=== PATIENT | female | born 1985 | race Two or more races ===

== ENCOUNTER 2020-03-12 15:41 | Outpatient (REF) | payer OTHER, SELFPAY ==
--- NOTE | 2020-03-12 16:05 | XR_ITS ---
EXAMINATION: BILATERAL HAND X-RAY CLINICAL INFORMATION: Pain COMPARISON: Previous left hand and wrist x-ray January 2019 and right finger x-ray June 2015 TECHNIQUE: 3 views of each hand FINDINGS: Bone alignment is normal. No fracture or dislocation is seen. The joint spaces are normal. Soft tissues are normal. XR/XR hand LT min 3V IMPRESSION: Unremarkable exam.
--- NOTE | 2020-03-12 16:05 | XR_ITS ---
EXAMINATION: BILATERAL HAND X-RAY CLINICAL INFORMATION: Pain COMPARISON: Previous left hand and wrist x-ray January 2019 and right finger x-ray June 2015 TECHNIQUE: 3 views of each hand FINDINGS: Bone alignment is normal. No fracture or dislocation is seen. The joint spaces are normal. Soft tissues are normal. XR/XR hand RT min 3V IMPRESSION: Unremarkable exam.
[2020-03-12 16:17] LABS: MANUAL DIFF FLAG NO
[2020-03-12 16:18] LABS: Basophils Percent Auto 0.3 % (0-2); Eosinophils Absolute Auto 0.1 X10*3/uL (0.0-0.4); Eosinophils Percent Auto 0.7 % (0-4); Hematocrit 36.1 % (37-47); Hemoglobin 12.2 g/dl (12.0-16.0); Imm Gran Abs Auto 0.02 X10*3/uL (0.00-0.03); Imm Gran Pct Auto 0.3 % (0.0-0.4); Lymphocytes Absolute Auto 1.9 X10*3/uL (1.2-4.9); Lymphocytes Percent Auto 25.5 % (20-40); Mean Corpuscular HGB Conc 33.8 g/dl (31.0-35.0); Mean Corpuscular Hemoglobin 31.1 pg (27.0-33.0); Mean Corpuscular Volume 92.1 fL (80-98); Mean Platelet Volume 11.4 fL (9.4-12.3); Monocytes Absolute Auto 0.5 X10*3/uL (0.1-1.2); Monocytes Percent Auto 5.9 % (2-11); Neutrophils Absolute Auto 5.1 X10*3/uL (2.0-8.3); Neutrophils Percent Auto 67.3 % (45-73); Platelet Count 233 X10*3/uL (160-400); Red Blood Count 3.92 X10*6/uL (4.20-5.50); Red Cell Distribution Width 12.7 % (11.0-16.0); White Blood Count 7.6 X10*3/uL (4.8-10.8)
[2020-03-12 16:45] LABS: C Reactive Protein 0.16 mg/dL (< or = 0.50); Rheumatoid Factor < 15.0 IU/mL (<15.0)
[2020-03-12 17:03] LABS: Erythrocyte Sedimentation Rate 9 MM/HR (0-20)
[2020-03-14 14:02] LABS: Anti Nuclear Antibody Screen NEGATIVE (NEGATIVE)
[2020-03-14 14:21] LABS: Cyclic Citrullinated Peptide <16 UNITS
== END 2020-03-12 15:42 | disposition home or self-care (01) ==
LOC: HO.LAB 15:41
PROVIDERS: PCP Internal Medicine; Visit Provider Internal Medicine
DX: M79.642 Pain in left hand (principal); M79.641 Pain in right hand
CPT/HCPCS: 36415; 73130; 85025; 85652; 86038; 86039; 86140; 86200; 86431

== ENCOUNTER 2020-05-07 09:06 | Outpatient (REF) | payer OTHER, SELFPAY | END 2020-05-07 09:07 | disposition home or self-care (01) | LOC: HO.HMGCLDS 09:06 | PROVIDERS: PCP Internal Medicine; Visit Provider Internal Medicine | DX: Z20.828 Contact with and (suspected) exposure to other viral communicable diseases (principal) | CPT/HCPCS: C9803; U0003 ==

== ENCOUNTER 2020-05-21 12:50 | Outpatient (REF) | payer OTHER, SELFPAY | END 2020-05-21 12:51 | disposition home or self-care (01) | LOC: HO.HMGCLDS 12:50 | PROVIDERS: Visit Provider Internal Medicine | DX: Z20.822 Contact with and (suspected) exposure to COVID-19 (principal) | CPT/HCPCS: 36415; C9803; U0003 ==

== ENCOUNTER 2020-06-18 15:17 | Outpatient (REF) | payer OTHER, SELFPAY ==
[2020-06-19 18:57] LABS: C. trachomatis RNA TMA NOT DETECTED (NOT DETECTED); N. gonorrhoeae RNA TMA NOT DETECTED (NOT DETECTED)
[2020-06-21 16:02] LABS: HPV mRNA E6/E7 rflx Not Detected (Not Detected)
== END 2020-06-18 15:18 | disposition home or self-care (01) ==
LOC: HO.LAB 15:17
PROVIDERS: PCP Hospitalist; Visit Provider Advanced Practice Midwife
DX: Z01.411 Encounter for gynecological examination (general) (routine) with abnormal findings (principal); Z11.51 Encounter for screening for human papillomavirus (HPV); N39.41 Urge incontinence; R30.0 Dysuria; Z20.2 Contact with and (suspected) exposure to infections with a predominantly sexual mode of transmission; Z97.5 Presence of (intrauterine) contraceptive device
CPT/HCPCS: 36415; 81003; 87086; 87088; 87186; 87491; 87591; 87624; 88142

== ENCOUNTER 2020-06-20 13:34 | Outpatient (REF) | payer OTHER, SELFPAY ==
[2020-06-21 04:11] LABS: HIV AB/AG Nonreactive (Nonreactive); HIV Num 1 0.14 S/CO (0.00-0.99); ~HepC Num1 0.18 S/CO (0.00-0.79); ~Hepatitis C Antibody Nonreactive (Nonreactive)
[2020-06-21 04:12] LABS: HBsAGNum1 0.22 S/CO (0.00-0.99); Hepatitis B Surface Antigen Negative (Negative)
[2020-06-22 03:38] LABS: Syphilis Screen Nonreactive (Nonreactive)
== END 2020-06-20 13:35 | disposition home or self-care (01) ==
LOC: HO.LAB 13:34
PROVIDERS: PCP Hospitalist; Visit Provider Advanced Practice Midwife
DX: Z11.3 Encounter for screening for infections with a predominantly sexual mode of transmission (principal); Z11.8 Encounter for screening for other infectious and parasitic diseases; Z11.4 Encounter for screening for human immunodeficiency virus [HIV]; Z11.59 Encounter for screening for other viral diseases
CPT/HCPCS: 36415; 86780; 86803; 87340; 87389

== ENCOUNTER 2020-07-18 12:46 | Outpatient (REF) | payer OTHER, SELFPAY ==
[2020-07-22 12:07] LABS: HPV mRNA E6/E7 rflx Not Detected (Not Detected)
== END 2020-07-18 12:47 | disposition home or self-care (01) ==
LOC: HO.LAB 12:46
PROVIDERS: Visit Provider Advanced Practice Midwife
DX: Z30.433 Encounter for removal and reinsertion of intrauterine contraceptive device (principal); Z11.51 Encounter for screening for human papillomavirus (HPV); R87.615 Unsatisfactory cytologic smear of cervix
CPT/HCPCS: 36415; 58300; 58301; 81025; 87624; 88142

== ENCOUNTER 2020-07-27 18:24 | Outpatient (REF) | payer OTHER, SELFPAY | END 2020-07-27 18:25 | disposition home or self-care (01) | LOC: HO.LNP 18:24 | PROVIDERS: Visit Provider Family Medicine | DX: N39.0 Urinary tract infection, site not specified (principal); R30.0 Dysuria | CPT/HCPCS: 87086; 87088; 87186 ==

== ENCOUNTER → 2020-09-04 15:09 | Outpatient (BNVA) | payer OTHER, SELFPAY | PROVIDERS: PCP Internal Medicine; Visit Provider Advanced Practice Midwife | DX: Z30.431 Encounter for routine checking of intrauterine contraceptive device (principal) | CPT/HCPCS: 99212 ==

== ENCOUNTER 2020-12-05 14:40 | Outpatient (REF) | payer OTHER, SELFPAY ==
[2020-12-05 14:54] LABS: MANUAL DIFF FLAG NO
[2020-12-05 14:58] LABS: Basophils Percent Auto 0.2 % (0-2); Eosinophils Percent Auto 0.3 % (0-4); Hematocrit 40.3 % (37-47); Hemoglobin 13.6 g/dl (12.0-16.0); Imm Gran Abs Auto 0.03 X10*3/uL (0.00-0.03); Imm Gran Pct Auto 0.3 % (0.0-0.4); Lymphocytes Absolute Auto 1.8 X10*3/uL (1.2-4.9); Lymphocytes Percent Auto 20.2 % (20-40); Mean Corpuscular HGB Conc 33.7 g/dl (31.0-35.0); Mean Corpuscular Hemoglobin 30.6 pg (27.0-33.0); Mean Corpuscular Volume 90.6 fL (80-98); Mean Platelet Volume 10.8 fL (9.4-12.3); Monocytes Absolute Auto 0.4 X10*3/uL (0.1-1.2); Monocytes Percent Auto 4.5 % (2-11); Neutrophils Absolute Auto 6.7 X10*3/uL (2.0-8.3); Neutrophils Percent Auto 74.5 % (45-73); Platelet Count 235 X10*3/uL (160-400); Red Blood Count 4.45 X10*6/uL (4.20-5.50); Red Cell Distribution Width 13.1 % (11.0-16.0); White Blood Count 9.1 X10*3/uL (4.8-10.8)
[2020-12-05 15:25] LABS: Anion Gap 11 (12-20); Blood Urea Nitrogen 13 mg/dL (9-16); Calcium 9.7 mg/dL (8.4-10.2); Carbon Dioxide 27 mmol/L (22-29); Chloride 106 mmol/L (96-108); Estimated Glomerular Filt Rate > 60; Glucose Random 99 mg/dL (60-115); Potassium 4.7 mmol/L (3.3-5.1); Sodium 139 mmol/L (135-145)
[2020-12-05 15:47] LABS: Thyroid Stimulating Hormone 0.81 uIU/mL (0.32-4.0)
== END 2020-12-05 14:41 | disposition home or self-care (01) ==
LOC: HO.LAB 14:40
PROVIDERS: PCP Internal Medicine; Visit Provider Psychiatry & Neurology Neurology
DX: G43.709 Chronic migraine without aura, not intractable, without status migrainosus (principal)
CPT/HCPCS: 36415; 80048; 84443; 85025

== ENCOUNTER → 2021-04-12 14:24 | Outpatient (BNVA) | payer OTHER, SELFPAY | PROVIDERS: PCP Internal Medicine; Visit Provider Physician Assistant | DX: S80.11XA Contusion of right lower leg, initial encounter (principal); Y04.2XXA Assault by strike against or bumped into by another person, initial encounter; M79.7 Fibromyalgia | CPT/HCPCS: 99203 ==

== ENCOUNTER 2021-11-22 16:38 | Outpatient (REF) | payer OTHER, SELFPAY ==
--- NOTE | ~2021-11-22 | XR_ITS ---
EXAMINATION: XR ELBOW, LEFT CLINICAL INFORMATION: Pain COMPARISON: None TECHNIQUE: AP, lateral, and oblique views of the left elbow. FINDINGS: The bones and soft tissues are normal. No fracture or joint effusion. Alignment is anatomic. Joint spaces are maintained. XR/XR elbow LT min 3V IMPRESSION: Normal left elbow radiographs.
== END 2021-11-22 16:39 | disposition home or self-care (01) ==
LOC: HO.XRAY 16:38
PROVIDERS: PCP Internal Medicine; Visit Provider Internal Medicine
DX: M25.522 Pain in left elbow (principal)
CPT/HCPCS: 73080

== ENCOUNTER → 2022-01-16 14:59 | Outpatient (BNVA) | payer OTHER, SELFPAY | PROVIDERS: PCP Internal Medicine; Visit Provider Physician Assistant | DX: M77.12 Lateral epicondylitis, left elbow (principal) | CPT/HCPCS: 20551; 99202; J1100 ==

== ENCOUNTER 2022-02-08 10:14 | Outpatient (REF) | payer OTHER, SELFPAY ==
[2022-02-08 11:51] LABS: MANUAL DIFF FLAG NO
[2022-02-08 11:54] LABS: Basophils Percent Auto 0.4 % (0-2); Eosinophils Absolute Auto 0.1 X10*3/uL (0.0-0.4); Eosinophils Percent Auto 1.2 % (0-4); Hematocrit 36.8 % (37.0-47.0); Hemoglobin 12.4 g/dl (12.0-16.0); Imm Gran Abs Auto 0.01 X10*3/uL (0.00-0.03); Imm Gran Pct Auto 0.2 % (0.0-0.4); Lymphocytes Absolute Auto 1.4 X10*3/uL (1.2-4.9); Lymphocytes Percent Auto 29.3 % (20-40); Mean Corpuscular HGB Conc 33.7 g/dl (31.0-35.0); Mean Corpuscular Hemoglobin 30.7 pg (27.0-33.0); Mean Corpuscular Volume 91.1 fL (80.0-98.0); Mean Platelet Volume 11.9 fL (9.4-12.3); Monocytes Absolute Auto 0.3 X10*3/uL (0.1-1.2); Monocytes Percent Auto 6.6 % (2-11); Neutrophils Percent Auto 62.3 % (45-73); Platelet Count 243 X10*3/uL (160-400); Red Blood Count 4.04 X10*6/uL (4.20-5.50); Red Cell Distribution Width 12.5 % (11.0-16.0); White Blood Count 4.8 X10*3/uL (4.8-10.8)
[2022-02-08 11:55] LABS: Appearance Urine Cloudy; Color Urine Yellow; Glucose Urine UA Negative (Negative); Leukocyte Esterase Urine Large (3+) (Negative); Nitrite Urine Negative (Negative); PH 6.5 (5.0-9.0); UMIC TRIGGER UACC YES; Urine Blood Negative (Negative); Urine Ketones Negative (Negative); Urine Protein Negative (Neg-Trace)
[2022-02-08 12:06] LABS: Alanine Aminotransferase 22 U/L (0-31); Anion Gap 15 (12-20); Aspartate Amino Transferase 17 U/L (5-31); Bacteria Urine 2+ (None Seen); Bilirubin Total 0.6 mg/dL (0.0-1.0); Blood Urea Nitrogen 10 mg/dL (9-16); Calcium 9.1 mg/dL (8.4-10.2); Carbon Dioxide 27 mmol/L (22-29); Chloride 106 mmol/L (96-108); Cholesterol 165 mg/dL; Estimated Glomerular Filt Rate > 60; Glucose Fasting 90 mg/dL (60-99); HDL Cholesterol 47 mg/dL; Hyaline Casts Urine 0-2 /LPF (0-2); Potassium 4.7 mmol/L (3.3-5.1); Sodium 143 mmol/L (135-145); Triglycerides 64 mg/dL; UACC Culture Trigger YES
[2022-02-08 12:07] LABS: Alkaline Phosphatase 68 U/L (39-117); LDL Cholesterol Calculated 106 mg/dl
[2022-02-08 12:26] LABS: TSH reflex Free T4 0.69 uIU/mL (0.32-4.0); Vitamin D 25-OH Total 15.8 ng/mL (>30)
== END 2022-02-08 10:15 | disposition home or self-care (01) ==
LOC: HO.HMGCLDS 10:14
PROVIDERS: PCP Internal Medicine; Visit Provider Internal Medicine
DX: Z00.00 Encounter for general adult medical examination without abnormal findings (principal); K29.70 Gastritis, unspecified, without bleeding; E55.9 Vitamin D deficiency, unspecified; E78.00 Pure hypercholesterolemia, unspecified
CPT/HCPCS: 36415; 80053; 80061; 81001; 82306; 84443; 85025; 87086

== ENCOUNTER 2022-02-18 08:35 | Outpatient (REF) | payer OTHER, SELFPAY ==
--- NOTE | ~2022-02-18 | FL_ITS ---
EXAMINATION: XR FLUOROSCOPY UPPER GI WITH AIR CLINICAL INFORMATION: Epigastric pain. COMPARISON: None TECHNIQUE: Routine upper GI air-contrast study was performed. FINDINGS: Following oral administration of thick barium and effervescent granules there is normal propagation of bolus from the oral cavity through the pharynx, esophagus into stomach without any obstruction or narrowing. On placing patient supine and prone lying the course, caliber and peristalsis of stomach and the duodenal bulb is normal. There is mild gastroesophageal reflux without hiatal hernia. The mucosal pattern of the stomach and the duodenum is normal. FLUOROSCOPY TIME: 1.4 minutes DOSE AREA PRODUCT: 25.786 uGy-m2 (microgray-meter squared) FL/FL upper GI w air IMPRESSION: Mild gastroesophageal reflux without hiatal hernia.
== END 2022-02-18 08:36 | disposition home or self-care (01) ==
LOC: HO.XRAY 08:35
PROVIDERS: PCP Internal Medicine; Visit Provider Internal Medicine
DX: R10.13 Epigastric pain (principal)
CPT/HCPCS: 74246

== ENCOUNTER → 2022-06-25 15:09 | Outpatient (BNVA) | payer OTHER, SELFPAY | PROVIDERS: PCP Internal Medicine; Visit Provider Physician Assistant | DX: S53.402A Unspecified sprain of left elbow, initial encounter (principal); S83.92XA Sprain of unspecified site of left knee, initial encounter; W18.30XA Fall on same level, unspecified, initial encounter | CPT/HCPCS: 73080; 73564; 99204 ==

== ENCOUNTER → 2022-07-03 11:48 | Outpatient (BNVA) | payer OTHER, SELFPAY | PROVIDERS: PCP Internal Medicine; Visit Provider Physician Assistant | DX: S53.402A Unspecified sprain of left elbow, initial encounter (principal); S83.92XA Sprain of unspecified site of left knee, initial encounter; W18.30XA Fall on same level, unspecified, initial encounter | CPT/HCPCS: 99213 ==

== ENCOUNTER 2022-07-15 08:31 | Outpatient (REF) | payer OTHER, SELFPAY ==
[2022-07-15 16:32] LABS: Urine Cytology See Pathology rpt
== END 2022-07-15 08:32 | disposition home or self-care (01) ==
LOC: HO.LAB 08:31
PROVIDERS: PCP Internal Medicine; Visit Provider Nurse Practitioner Family
DX: N39.0 Urinary tract infection, site not specified (principal); N32.81 Overactive bladder; Z79.899 Other long term (current) drug therapy
CPT/HCPCS: 51798; 87086; 99202

== ENCOUNTER → 2022-07-16 15:33 | Outpatient (BNVA) | payer OTHER, SELFPAY | PROVIDERS: PCP Internal Medicine; Visit Provider Physician Assistant | DX: M25.522 Pain in left elbow (principal); M25.562 Pain in left knee | CPT/HCPCS: 99214 ==

== ENCOUNTER → 2022-07-28 15:16 | Outpatient (BNVA) | payer OTHER, SELFPAY | PROVIDERS: PCP Internal Medicine; Visit Provider Physician Assistant Medical | DX: M25.522 Pain in left elbow (principal); M25.562 Pain in left knee | CPT/HCPCS: 99213 ==

== ENCOUNTER → 2022-08-11 14:30 | Outpatient (BNVA) | payer OTHER, SELFPAY | PROVIDERS: PCP Internal Medicine; Visit Provider Physician Assistant Medical | DX: M25.522 Pain in left elbow (principal); M25.562 Pain in left knee | CPT/HCPCS: 99213 ==

== ENCOUNTER 2022-08-22 15:00 | Outpatient (RCR) | payer OTHER, SELFPAY ==
--- NOTE | 2022-07-30 16:00 | MHC.OT.EP ---
[address] [phone] Occupational Therapy Plan of Care Patient Name: Arminda Adams Date of Evaluation: 07/30/22 Diagnosis: Left elbow /forearm pain Pain Location: Left elbow constant. 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 Pt stopped doing nails about one year ago with little improvement. Pt now presents with complaint of high elbow pain with light use of arm. 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 Thank you once again for your referral.
--- NOTE | 2022-07-30 16:01 | MHC.OT.EP ---
[address] [phone] Occupational Therapy Plan of Care Patient Name: Arminda Adams Date of Evaluation: 07/30/22 Diagnosis: Left elbow /forearm pain Pain Location: Left elbow constant. 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 Pt stopped doing nails about one year ago with little improvement. Pt now presents with complaint of high elbow pain with light use of arm. 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 Thank you once again for your referral.
--- NOTE | 2022-08-22 16:21 | MHC.OT.OP ---
[address] [phone] F: [phone] Occupational Therapy Progress Note Patient Name: Arminda Adams Diagnosis: Left elbow /forearm pain Date of Surgery: Date of Evaluation: 07/30/22 Treatments to Date: 5 Cancellations to Date: No Shows to Date: Subjective: Pt reports doing her HEP stretching today at work Pt reports pain with elbow ROM and with light palpation at medial and lateral elbows Pain Score: 6 Pain Location: Left lateral elbow 6/10, Right lateral elbow 10/10 Objective Measures: AROM WNL Handcrew Foreman R 20 lb L 60 lb from 50 lb on evaluation Status: Not Progressing Assessment: 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 Pt was seen in OT and reports she stopped doing nails about one year ago with little improvement. Pt now presents with complaint of high left elbow pain and severe right elbow pain not reported at evaluation. Pain on both elbows with AROM and light use of arm. ROM is WNL, synchro assembler strength is improved by 10 lb on the left. Left elbow pain improved from a 9/10 to a 6/10 Short Term Goals: Demo compliance with elbow protection techniques Demo painfree AROM Tolerate isometric UE ther ex Skilled Nursing Goals: Indep with HEP Indep with activity modification for elbow protection Left synchro assembler to > 65 lb Mild difficulty with daily activities with modifications as needed Frequency and Duration: The patient will be seen 2x wk x 4 wks Treatment Plan: Therapeutic Exercise Therapeutic Activity Home Exercise Program Patient Education ADL Training Ultrasound Iontophoresis Con't per recommendations Electronically Signed By: Luann Drake OT CHT CLT Reviewed/agree with student documentation: N/A Therapist:
--- NOTE | 2022-08-28 10:48 | MHC.OT.DC ---
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 Pt was seen in OT and reports she stopped doing nails about one year ago with little improvement. Pt now presents with complaint of high left elbow pain and severe right elbow pain not reported at evaluation. Pain on both elbows with AROM and light use of arm. ROM is WNL, boat camp operator strength is improved by 10 lb on the left. Left elbow pain improved from a 9/10 to a 6/10 Recalcitrant case, D/c'd OT and referred to Orthopedic surgeon. Electronically Signed By: Luann Drake OT CHT CLT Reviewed/agree with student documentation: N/A Therapist: Please Sign and return to therapist, thank you for your referral.
== END 2022-08-28 10:48 | disposition home or self-care (01) ==
LOC: HO.OT 15:00
PROVIDERS: PCP Internal Medicine; Visit Provider Physician Assistant
DX: M25.522 Pain in left elbow (principal); M79.632 Pain in left forearm
CPT/HCPCS: 97035; 97110; 97140; 97166

== ENCOUNTER → 2022-08-26 11:05 | Outpatient (BNVA) | payer OTHER, SELFPAY | PROVIDERS: PCP Internal Medicine; Visit Provider Physician Assistant Medical | DX: S53.402D Unspecified sprain of left elbow, subsequent encounter (principal); S83.92XD Sprain of unspecified site of left knee, subsequent encounter; W18.30XD Fall on same level, unspecified, subsequent encounter | CPT/HCPCS: 99213 ==

== ENCOUNTER 2022-09-03 07:34 | Outpatient (REF) | payer OTHER, SELFPAY ==
[2022-09-03 10:32] LABS: MANUAL DIFF FLAG NO
[2022-09-03 10:39] LABS: Basophils Percent Auto 0.5 % (0-2); Eosinophils Absolute Auto 0.1 X10*3/uL (0.0-0.4); Eosinophils Percent Auto 1.2 % (0-4); Hematocrit 37.1 % (37.0-47.0); Hemoglobin 12.4 g/dl (12.0-16.0); Imm Gran Abs Auto 0.02 X10*3/uL (0.00-0.03); Imm Gran Pct Auto 0.4 % (0.0-0.4); Lymphocytes Absolute Auto 1.6 X10*3/uL (1.2-4.9); Lymphocytes Percent Auto 28.7 % (20-40); Mean Corpuscular HGB Conc 33.4 g/dl (31.0-35.0); Mean Corpuscular Hemoglobin 30.2 pg (27.0-33.0); Mean Corpuscular Volume 90.5 fL (80.0-98.0); Mean Platelet Volume 11.8 fL (9.4-12.3); Monocytes Absolute Auto 0.4 X10*3/uL (0.1-1.2); Monocytes Percent Auto 6.3 % (2-11); Neutrophils Absolute Auto 3.6 x10*3/uL (2.0-8.3); Neutrophils Percent Auto 62.9 % (45-73); Platelet Count 227 X10*3/uL (160-400); Red Cell Distribution Width 12.7 % (11.0-16.0); White Blood Count 5.7 X10*3/uL (4.8-10.8)
[2022-09-03 11:18] LABS: Alanine Aminotransferase 22 U/L (0-31); Albumin Level 3.9 g/dL (3.5-5.0); Alkaline Phosphatase 68 U/L (39-117); Anion Gap 12 (12-20); Aspartate Amino Transferase 16 U/L (5-31); Bilirubin Total 0.6 mg/dL (0.0-1.0); Blood Urea Nitrogen 10 mg/dL (9-16); C Reactive Protein 0.14 mg/dL (< or = 0.50); Calcium 8.7 mg/dL (8.4-10.2); Carbon Dioxide 26 mmol/L (22-29); Chloride 107 mmol/L (96-108); Estimated Glomerular Filt Rate > 60; Glucose Random 94 mg/dL (60-115); Rheumatoid Factor < 13.0 IU/mL (<15.0); Sodium 141 mmol/L (135-145); Total Protein 6.5 g/dL (6.5-8.0)
[2022-09-03 11:33] LABS: TSH reflex Free T4 1.11 uIU/mL (0.32-4.0)
[2022-09-03 11:44] LABS: Erythrocyte Sedimentation Rate 11 MM/HR (0-20)
[2022-09-05 22:09] LABS: Lyme Abs Screen <0.90 index
[2022-09-08 10:28] LABS: Anti Nuclear Antibody Screen NEGATIVE (NEGATIVE)
[2022-09-08 19:58] LABS: CK-BB None Detected (None Detected); CK-MB 0 % (<5); CK-MM 100 % (95-100); Creatine Kinase,Total,Serum 70 U/L (29-143)
== END 2022-09-03 07:35 | disposition home or self-care (01) ==
LOC: HO.10HDL 07:34
PROVIDERS: Visit Provider Internal Medicine
DX: M25.50 Pain in unspecified joint (principal); E78.00 Pure hypercholesterolemia, unspecified; T14.8XXA Other injury of unspecified body region, initial encounter; W57.XXXA Bitten or stung by nonvenomous insect and other nonvenomous arthropods, initial encounter
CPT/HCPCS: 36415; 80053; 82552; 84443; 85025; 85652; 86038; 86039; 86140; 86431; 86617; 86618

== ENCOUNTER → 2022-09-11 15:54 | Outpatient (BNVA) | payer OTHER, SELFPAY | PROVIDERS: PCP Internal Medicine; Visit Provider Internal Medicine | DX: S53.402D Unspecified sprain of left elbow, subsequent encounter (principal); S83.92XD Sprain of unspecified site of left knee, subsequent encounter; W18.30XD Fall on same level, unspecified, subsequent encounter | CPT/HCPCS: 99213 ==

== ENCOUNTER → 2022-09-15 15:14 | Outpatient (BNVA) | payer OTHER, SELFPAY | PROVIDERS: PCP Internal Medicine; Visit Provider Physician Assistant | DX: M77.12 Lateral epicondylitis, left elbow (principal) | CPT/HCPCS: 99212 ==

== ENCOUNTER 2022-09-17 16:00 | Outpatient (REF) | payer OTHER, SELFPAY ==
--- NOTE | ~2022-09-17 | US_ITS ---
EXAMINATION: US RETROPERITONEAL COMPLETE (RENAL) CLINICAL INFORMATION: Unspecified urinary incontinence. COMPARISON: None available. TECHNIQUE: Real-time imaging of the kidneys and bladder. FINDINGS: RIGHT KIDNEY: 10.3 x 5.6 x 5.4 cm (SAG x AP x TRV). The kidney is normal in size, contour, and echogenicity. Renal cortical thickness is normal. No calculi or focal parenchymal lesions. No hydronephrosis. LEFT KIDNEY: 11.3 x 6.1 x 5.5 cm (SAG x AP x TRV). The kidney is normal in size, contour, and echogenicity. There may be cortical thinning or scarring in the upper pole. No calculi or focal parenchymal lesions. No hydronephrosis. BLADDER: Well distended and normal. Bilateral ureteral jets are demonstrated. Prevoid bladder volume is 297.1 mL. Postvoid bladder volume is 33.9 mL. US/US retroperitoneal comp IMPRESSION: Question cortical thinning or scarring in the upper pole of the left kidney. Otherwise normal renal ultrasound. Small 34 mL post void bladder residual..
== END 2022-09-17 16:01 | disposition home or self-care (01) ==
LOC: HO.US 16:00
PROVIDERS: PCP Internal Medicine; Visit Provider Nurse Practitioner Family
DX: N32.81 Overactive bladder (principal); R32 Unspecified urinary incontinence
CPT/HCPCS: 76770

== ENCOUNTER 2022-09-26 10:34 | Outpatient (REF) | payer OTHER, SELFPAY ==
--- NOTE | ~2022-09-26 | MR_ITS ---
EXAMINATION: MR KNEE WITHOUT CONTRAST, LEFT CLINICAL INFORMATION: Left knee pain and swelling. Injury in June 2022. Persistent pain and limited range of motion. COMPARISON: Left knee radiographs dated 06/25/2022. Report from a left knee MRI dated 01/02/2006. TECHNIQUE: MRI of the knee without contrast was performed using routine sequences on a high-field scanner. FINDINGS: MENISCI: Medial Meniscus: Intact. Lateral Meniscus: Intact. LIGAMENTS: Cruciate: Intact. Collateral: Intact. EXTENSOR MECHANISM: Intact quadriceps and patellar tendons. Normal patellofemoral alignment. Subcutaneous edema ventral to the distal patella and tibial tuberosity which could represent a soft tissue contusion versus early prepatellar bursitis. No organized fluid collection/hematoma formation. ARTICULAR CARTILAGE/BONE: Patellofemoral Compartment: Mild patellar median ridge articular cartilage signal heterogeneity. Medial Compartment: Intact articular cartilage. Lateral Compartment: Intact articular cartilage. JOINT FLUID AND BURSAE: Trace joint effusion and trace Smith's cyst. MR/MR knee LT wo con IMPRESSION: 1. No acute meniscal or ligamentous injury. 2. Subcutaneous edema ventral to the distal patella and tibial tuberosity which could represent a soft tissue contusion versus early prepatellar bursitis. No organized fluid collection/hematoma formation. 3. Minimal patellofemoral arthrosis. Trace joint effusion and trace Smith's cyst.
== END 2022-09-26 10:35 | disposition home or self-care (01) ==
LOC: HO.MRI 10:34
PROVIDERS: PCP Internal Medicine; Visit Provider Internal Medicine
DX: M25.562 Pain in left knee (principal)
CPT/HCPCS: 73721

== ENCOUNTER → 2022-10-01 15:47 | Outpatient (BNVA) | payer OTHER, SELFPAY | PROVIDERS: PCP Internal Medicine; Visit Provider Nurse Practitioner Family | DX: R31.29 Other microscopic hematuria (principal); N32.81 Overactive bladder; R30.0 Dysuria | CPT/HCPCS: 51798; 99212 ==

== ENCOUNTER → 2022-10-08 15:20 | Outpatient (BNVA) | payer OTHER, SELFPAY | PROVIDERS: PCP Internal Medicine; Visit Provider Physician Assistant | DX: S53.402D Unspecified sprain of left elbow, subsequent encounter (principal); S83.92XD Sprain of unspecified site of left knee, subsequent encounter; W18.30XD Fall on same level, unspecified, subsequent encounter | CPT/HCPCS: 99214 ==

== ENCOUNTER 2022-10-16 16:00 | Outpatient (RCR) | payer OTHER, SELFPAY ==
--- NOTE | 2022-07-25 15:46 | MHC.PT.EP ---
[facility] [place] Office [place] Office [place] Office [address] Keenan Briceno [address] [phone] F: [phone] F: [phone] F: [phone] F: [phone] Physical Therapy Plan of Care Date of Evaluation: Date of Surgery: Diagnosis: LEFT knee pain (MD Dx) LEFT knee pain/strain, ?patellar bursitis (PT Dx) Assessment: Patient is a 37 y.o. female who is referred to PT by Pam Toro with Dx of LEFT knee pain after worker's compensation injury. PT diagnosis is left knee pain, strain, possible patellar bursitis. Patient impairments include swelling, pain, limited ROM, weakness. Patient current functional limitations are walking, stair use, bend/squat, prolonged positions (sitting or standing). Patient will benefit from skilled PT to address aforementioned impairments and functional limitations to meet established goals. Frequency and Duration: The patient will be seen 2x/week for 4 weeks Short Term Goals: 2 weeks Patient demonstrates consistency and independence with HEP to self manage symptoms. Patient presents without swelling in L mid patella, measuring 43.5cm. 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 Patient presents with increased L knee extension 5/5 to be able to perform reciprocal stairs. Treatment Plan: Modalities to reduce pain, spasms and effusion. Manual therapy to restore motion and function. Therapeutic exercise to improve strength and flexibility. Neuromuscular re-education for posture and balance. Therapeutic activities to return to functional activities of daily living. Electronically signed by: Ambrose Hinton, PT, DPT Please sign and return to therapist. Thank you for your referral.
--- NOTE | 2022-10-22 17:18 | MHC.PT.DC ---
[facility] [place] Office [place] Office [place] Office [address] Keenan Briceno [address] [facility] [phone] F: [phone] F: [phone] F: [phone] F: [phone] Physical Therapy Discharge Report Diagnosis: LEFT knee pain (MD Dx) LEFT knee pain/strain, ?patellar bursitis (PT Dx) Date of Surgery: Date of Evaluation: 07/25/22 Date of Discharge: 10/16/22 Treatments to Date: 16 Cancellations to Date: No Shows to Date: Discharge Status: Achieved Goals Improved Function Independent with HEP Discharge Summary: Pt independent w/HEP All Goals met Discharged from PT at this time. Electronically signed by: Ambrose Hinton, PT, DPT Please sign and return to therapist. Thank you for your referral.
== END 2022-10-22 17:18 | disposition home or self-care (01) ==
LOC: HO.PT 16:00
PROVIDERS: PCP Internal Medicine; Visit Provider Physician Assistant
DX: M25.562 Pain in left knee (principal)
CPT/HCPCS: 97035; 97110; 97140; 97161; 97530

== ENCOUNTER 2022-10-27 13:30 | Outpatient (REF) | payer OTHER, SELFPAY ==
--- NOTE | ~2022-10-27 | XR_ITS ---
EXAMINATION: XR KNEE, LEFT CLINICAL INFORMATION: Left knee contusion COMPARISON: X-ray 06/25/2022 TECHNIQUE: Four views of the left knee. FINDINGS: Bones and soft tissues are normal. No fracture or joint effusion. Alignment is anatomic. Joint spaces are well maintained. No abnormal soft tissue calcification. XR/XR knee LT 4V IMPRESSION: No acute osseous findings seen.
== END 2022-10-27 13:31 | disposition home or self-care (01) ==
LOC: HO.HMGCX 13:30
PROVIDERS: PCP Internal Medicine; Visit Provider Internal Medicine
DX: S80.02XD Contusion of left knee, subsequent encounter (principal)
CPT/HCPCS: 73564

== ENCOUNTER 2022-11-19 14:09 | Outpatient (AMB) | payer OTHER, SELFPAY ==
[2022-11-19 14:12] VITALS: BMI 40.8
--- NOTE | 2022-11-19 14:12 | A.OFFVIS_ITS ---
Intake Vital Signs 11/19/22 14:12 Height 5 ft 6 in Weight 253 lb BMI 40.8 Intake Visit Reasons: Newprob-LT knee pain-DOI 06/25/22 Intake Note: Arminda is a 37 year old female who presets today for a evaluation for her left knee pain, DOI 06/25/22. Patient reports she re injured her on 10/25/22 due to jumping over a guardrail. She states that there is a lump behind her left thigh that causes her pain when walking for a long time and squatting. Pain is on top of the knee cap per patient. ? Allergies cashew nut Allergy (Severe, Verified 11/19/22 14:18) ANAPHYLAXIS cat dander Allergy (Severe, Verified 11/19/22 14:18) ITCHY SWELLING pregabalin [From Lyrica] Allergy (Severe, Verified 11/19/22 14:18) headaches,lower facial/chin swelling gabapentin Allergy (Intermediate, Verified 11/19/22 14:18) confusion, nausea house dust Allergy (Intermediate, Verified 11/19/22 14:18) Unknown HPI Newprob-LT knee pain-DOI 06/25/22 HPI Details 37-year-old female who presents to the office today for evaluation of left knee pain, 06/25/22. She reports she reinjured her left knee on 10/25/22 s/p jumping over a guardrail. She states she has pain in the anterior aspect of her patella and a lump present behind her left thigh which causes her pain with prolonged walking and squatting. She is completed with her physical therapy sessions. [facility] Medical History Anxiety Bilateral hand pain Constipation Depression Fibromyalgia GERD without esophagitis Insomnia IUD (intrauterine device) in place Migraine Morbid obesity with BMI of 45.0-49.9, adult Obesity, Class III, BMI 40-49.9 (morbid obesity) Peripheral neuropathy Urge incontinence Vitamin D deficiency Surgical History H/O bilateral breast reduction surgery (~06/2012) History of section History of tubal ligation Family History Father No problems noted. Mother No problems noted. 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 Diffuse retropatellar tenderness present. Palpable cord like area along the hamstring with tenderness. Full ROM with crepitus. Negative Grazyna?s. No ligamentous laxity. NVI. Assessment & Plan Assessment & Plan (1) Patellofemoral arthritis of left knee: Code(s): M17.12 - Unilateral primary osteoarthritis, left knee (2) Left hamstring muscle strain: Code(s): S76.312A - Strain of muscle, fascia and tendon of the posterior muscle group at thigh level, left thigh, initial encounter Plan We discussed options which include PT, NSAIDs and injections. The patient will defer on the injection today and proceed with PT and NSAIDs. She was also given an off the shelf reaction knee brace in the office today. If symptoms persist, the patient will contact me for an injection, otherwise, PRN. Orders: Orders PT Evaluation and Treatment Today M17.12 - Unilateral primary osteoarthritis, left knee, S76.312A - Strain of muscle, fascia and tendon of the posterior muscle group at thigh level, left thigh, initial encounter Patient Instructions: Scribed for Savita Roman PA-C, by Tyler Norton medical assistant cardiology, on 11/19/2022 at 2:00 PM Savita RYAN PA-C, have personally reviewed and agree with the information entered by the scribe. Coding Level of Care Code Est Pt Level 3 (35954) Diagnoses Patellofemoral arthritis of left knee M17.12 Left hamstring muscle strain S76.312A
== END 2022-11-19 15:05 | disposition home or self-care (01) ==
PROVIDERS: PCP Internal Medicine; Visit Provider Physician Assistant
DX: M17.12 Unilateral primary osteoarthritis, left knee (principal); S76.312A Strain of muscle, fascia and tendon of the posterior muscle group at thigh level, left thigh, initial encounter
CPT/HCPCS: 99213

== ENCOUNTER → 2022-11-19 14:09 | Outpatient (BNVA) | payer OTHER, SELFPAY | PROVIDERS: PCP Internal Medicine; Visit Provider Physician Assistant | DX: M17.12 Unilateral primary osteoarthritis, left knee (principal); S76.312A Strain of muscle, fascia and tendon of the posterior muscle group at thigh level, left thigh, initial encounter; X58.XXXA Exposure to other specified factors, initial encounter; Y93.9 Activity, unspecified; Y92.9 Unspecified place or not applicable; Y99.0 Civilian activity done for income or pay | CPT/HCPCS: 99212 ==

== ENCOUNTER 2022-11-20 08:07 | Outpatient (REF) | payer OTHER, SELFPAY ==
--- NOTE | 2022-11-20 08:09 | EMG_ITS ---
Left median and ulnar motor and sensory studies were performed. Left radial and sensory study was performed and paraspinal muscles were tested with a needle. IMPRESSION: 1. [id number] left median neuropathy across carpal tunnel. 2. Mild left ulnar neuropathy across cubital tunnel. MD ÁNGEL Cotto/SAIMAL / [id number]
== END 2022-11-20 08:08 | disposition home or self-care (01) ==
LOC: HO.NEURO 08:07
PROVIDERS: PCP Internal Medicine; Visit Provider Physician Assistant
DX: R20.0 Anesthesia of skin (principal); R20.2 Paresthesia of skin
CPT/HCPCS: 95886; 95909

== ENCOUNTER 2022-11-20 14:26 | Outpatient (REF) | payer OTHER, SELFPAY ==
--- NOTE | ~2022-11-20 | US_ITS ---
EXAMINATION: US SOFT TISSUE LEFT THIGH CLINICAL INFORMATION: Left thigh contusion sequelae. COMPARISON: None TECHNIQUE: Linear transducer grayscale and color Doppler examination with attention to the region of the soft tissues of the left thigh. FINDINGS: In the region of concern is mild heterogeneous echogenic and hypoechoic subcutaneous components with horizontal orientation. Color Doppler showed minimal associated vascular flow. The surrounding soft tissues are unremarkable. US/US extremity nonvascular IMPRESSION: 1. Mild heterogeneous echogenic and hypoechoic subcutaneous components in the region of concern is nonspecific. This could represent a resolving hematoma. No surrounding abnormality is seen. If these findings persist or enlarge, short-term repeat targeted soft tissue ultrasound can be performed as clinically indicated to assess for change.
== END 2022-11-20 14:27 | disposition home or self-care (01) ==
LOC: HO.US 14:26
PROVIDERS: PCP Nurse Practitioner Family; Visit Provider Nurse Practitioner Family
DX: S70.12XS Contusion of left thigh, sequela (principal)
CPT/HCPCS: 76882

== ENCOUNTER 2022-12-17 13:44 | Outpatient (AMB) | payer OTHER, SELFPAY ==
[2022-12-17 13:59] VITALS: BMI 40.8
--- NOTE | 2022-12-17 13:59 | MHC.OFFVIS ---
Intake Vital Signs 12/17/22 13:59 Height 5 ft 6 in Weight 253 lb BMI 40.8 Intake Visit Reasons: OV- EMG Review left elbow Intake Note: Arminda 37 yr old female presents today for her EMG review. States she is ready to discuss surgery. Consent signed and reviewed. Allergies cashew nut Allergy (Severe, Verified 12/17/22 14:01) ANAPHYLAXIS cat dander Allergy (Severe, Verified 12/17/22 14:01) ITCHY SWELLING pregabalin [From Lyrica] Allergy (Severe, Verified 12/17/22 14:01) headaches,lower facial/chin swelling gabapentin Allergy (Intermediate, Verified 12/17/22 14:01) confusion, nausea house dust Allergy (Intermediate, Verified 12/17/22 14:01) Unknown HPI OV- EMG Review left elbow HPI Details Arminda is a 37 year old right hand dominant woman who presents for a NCS review of her left hand numbness. She complains of numbness in all digits of her left hand. Symptoms intermittent, but daily, worse at night. She mainly has numbness in the median nerve distribution but will sometimes have numbness in her ring and small fingers She says she was initially diagnosed with bilateral carpal tunnel syndrome in ~2012. She reports having peripheral neuropathy, with worse numbness in her BLE. 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 [facility] Medical History Anxiety Bilateral hand pain Constipation Depression Fibromyalgia GERD without esophagitis Insomnia IUD (intrauterine device) in place Migraine Morbid obesity with BMI of 45.0-49.9, adult Obesity, Class III, BMI 40-49.9 (morbid obesity) Peripheral neuropathy Urge incontinence Vitamin D deficiency Surgical History H/O bilateral breast reduction surgery (~06/2012) History of section History of tubal ligation Family History Father No problems noted. Mother No problems noted. 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 Cognitive needs: No Hearing needs: No Vision needs: Yes Female Reproductive History Menstrual Age of Menarche: 13 Review of Systems Const All systems reviewed & are unremarkable except as noted in HPI and below Physical Exam Vital Signs: BMI result Body Mass Index 40.8 Const General: cooperative, healthy appearing and no acute distress Orientation/consciousness: patient oriented x3 HEENT Head: Yes normocephalic and Yes atraumatic Eyes EOM: EOMs intact bilaterally Resp Effort & Inspection: normal respiratory effort and able to speak in complete sentences Cardio Jugular venous distension: no JVD Skin General skin exam: turgor normal Rashes: no rashes Neuro General: patient oriented x3 Extrem Other: Evaluation of Left Upper Extremity: The patient is alert, oriented, and in no acute distress Neuro: Normal sensation in the median nerve distribution today. Numbness in the small finger today in clinic No thenar or intrinsic wasting Good APB muscle belly firing and good finger cross Vascular: Cap refill brisk ROM: She can make a fist and extend all her digits Skin: No lacerations or abrasions. General: No Ecchymosis. No Erythema or evidence of infection. Nerve Conduction study: IMPRESSION: 1. [id number] left median neuropathy across carpal tunnel. 2. Mild left ulnar neuropathy across cubital tunnel. Airam Dickey MD 11/20/2022 Psych Appearance: grossly normal Affect: normal affect Attitude: cooperative Assessment & Plan Assessment & Plan (1) Carpal tunnel syndrome of left wrist: Code(s): G56.02 - Carpal tunnel syndrome, left upper limb (2) Cubital tunnel syndrome on left: Code(s): G56.22 - Lesion of ulnar nerve, left upper limb Plan Assessment & Plan: 1. Left Carpal tunnel syndrome, mild-moderate Symptoms intermittent, but daily, worse at night 2. Left Cubital tunnel syndrome, mild Symptoms intermittent, but daily, worse at night I educated her about these conditions I discussed operative and non-operative treatment options The patient would like to proceed with surgery The risks and benefits of operative treatment were discussed with the patient and the patient wishes to proceed with surgery. These risks include, but are not limited to risk of damage to blood vessels, nerves, tendons, infection, recurrence, incomplete relief of preoperative symptoms, persistent pain, possible need for further surgery and the risks associated with regional blocks and anesthesia. The plan is to take the patient to the operating room sometime in the next few weeks for the following procedures: 1. Left Cubital tunnel release vs transposition, under general 2. Left Carpal tunnel release, under general All of the preoperative paperwork including the consent was filled out today. All the patient's questions were answered. The patient understands that they will be contacted by our staff development coordinator rn soon to schedule this procedure She denies Diabetes, blood thinners, asthma, heart, lung, kidney issues She has a hx of Peripheral neuropathy and Fibromyalgia Scribed for Yolanda Jackman MD by Prince Broussard, medical technical writer, on 12/17/22 at 2:15 PM, EST. Coding Level of Care Code Est Pt Level 4 (00834) Diagnoses Carpal tunnel syndrome of left wrist G56.02 Cubital tunnel syndrome on left G56.22
== END 2022-12-17 14:39 | disposition home or self-care (01) ==
PROVIDERS: PCP Internal Medicine; Visit Provider Orthopaedic Surgery
DX: G56.02 Carpal tunnel syndrome, left upper limb (principal); G56.22 Lesion of ulnar nerve, left upper limb
CPT/HCPCS: 99214

== ENCOUNTER → 2022-12-17 13:44 | Outpatient (BNVA) | payer OTHER, SELFPAY | PROVIDERS: PCP Internal Medicine; Visit Provider Orthopaedic Surgery | DX: G56.02 Carpal tunnel syndrome, left upper limb (principal); G56.22 Lesion of ulnar nerve, left upper limb; R20.0 Anesthesia of skin; R20.2 Paresthesia of skin; M79.7 Fibromyalgia | CPT/HCPCS: 99212 ==

== ENCOUNTER 2023-01-01 15:47 | Outpatient (REF) | payer OTHER, SELFPAY | END 2023-01-01 15:48 | disposition home or self-care (01) | LOC: HO.LNP 15:47 | PROVIDERS: Visit Provider Nurse Practitioner Family | DX: N32.81 Overactive bladder (principal); N39.0 Urinary tract infection, site not specified; R30.0 Dysuria | CPT/HCPCS: 51798; 81003; 87086; 99212 ==

== ENCOUNTER 2023-01-01 15:47 | Outpatient (AMB) | payer OTHER, SELFPAY ==
--- NOTE | 2023-01-01 15:50 | MHC.OFFVIS ---
Intake Intake Visit Reasons: 3 months Intake Note: Patient is present for follow up OAB/Micro Hematuria/Dysuria Urology Medications: Oxybutynin, Vesicare, Bactrim (not currently taking) Blood Thinner: none PVR: 109ml's Director Of Agriculture Required: No Accompanied by: Self / Same As Patient Allergies cashew nut Allergy (Severe, Verified 01/01/23 19:06) ANAPHYLAXIS cat dander Allergy (Severe, Verified 01/01/23 19:06) ITCHY SWELLING pregabalin [From Lyrica] Allergy (Severe, Verified 01/01/23 19:06) headaches,lower facial/chin swelling gabapentin Allergy (Intermediate, Verified 01/01/23 19:06) confusion, nausea house dust Allergy (Intermediate, Verified 01/01/23 19:06) Unknown Medication List - Last Reconciled 01/01/23 by CHARLIE Flores epinephrine IM DIRECTED ergocalciferol (vitamin D2) 1,250 mcg PO QWEEK 90 days ibuprofen 600 mg PO Q6H PRN levonorgestrel vaginal meloxicam 15 mg PO DAILY quetiapine 25 mg PO BID PRN terazosin 1 mg PO BEDTIME 30 days HPI HPI Comments History of Present Illness Details Arminda is a pleasant 37-year-old female patient of Dr. Vargas. She has a past medical history of migraines, anxiety, depression, peripheral neuropathy, GERD, insomnia, fibromyalgia, constipation, and carpal tunnel syndrome. She presents to the office today for follow-up. Of note, patient was seen approximately 3 months ago at which time she was started on vesicare for reports of urinary frequency with episodes of incontinence. Since her last visit here she discusses not to have started Vesicare. She also reports to have not taken antibiotics that were prescribed s/p microgen that was resulted. She discusses she has not been able to take care of her own health as she has been taking care of her son who recently attempted to commit suicide with overdosing on Benadryl. She discuss spending her whole summer getting her son through all these behavior health centers like [facility] and [facility]. She does continue to report lower urinary tract symptoms of urinary frequency and urinary urgency with episodes of incontinence at times. Discussed at length importance of taking meds as prescribed and importance of taking care of herself to be able to take care of her children. In office urinalysis results reviewed with the patient today. PVR 109ml's. Discussed at length incomplete bladder emptying as well as effects of incomplete bladder emptying. Workup has included retroperitoneal ultrasound noting bilateral kidneys with no calculi, lesions, or hydronephrosis noted. The bladder is well distended and normal. Bilateral ureteral jets are demonstrated. Prevoid bladder volume is approximately 300 mL. Postvoid bladder volume is approximately 30 mL. She has previously trialed oxybutynin with good effect initially however noting decrease in efficacy thus plan was to trial Vesicare. However, again patient did not end up trialing this. She otherwise denies changes to urinary stream, hematuria, flank pain, fever, and or chills. Discussed pelvic floor therapy however patient states she will not be able to attend at this time. Discussed near future in office cystoscopy if symptoms persist and or worsen. She otherwise offers no issues or concerns at this time. She discusses having to put her bachelor's degree at [employer] for early Education on hold at this time given her current circumstances . [facility] Medical History Anxiety Bilateral hand pain Constipation Depression Fibromyalgia GERD without esophagitis Insomnia IUD (intrauterine device) in place Migraine Morbid obesity with BMI of 45.0-49.9, adult Obesity, Class III, BMI 40-49.9 (morbid obesity) Peripheral neuropathy Urge incontinence Vitamin D deficiency Surgical History H/O bilateral breast reduction surgery (~06/2012) History of section History of tubal ligation Family History Father No problems noted. Mother No problems noted. 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 Cognitive needs: No Hearing needs: No Vision needs: Yes Female Reproductive History Menstrual Age of Menarche: 13 Review of Systems Const Reports as per HPI Eyes Reports no additional complaints ENT Reports no additional complaints Card Reports no additional complaints Resp Reports no additional complaints GI Reports as per HPI Reports as per HPI Musc Reports as per HPI Neuro Reports as per HPI Psych Reports as per HPI Endo Reports no additional complaints Jesus/Lymph Reports no additional complaints Aller/Immun Reports no additional complaints Physical Exam Const General: cooperative, healthy appearing, comfortable, no acute distress, well developed, alert and awake Nutritional Appearance: overweight Orientation/consciousness: patient oriented x3 Limitations: no limitations HEENT Head: Yes normal to inspection, Yes normocephalic and Yes atraumatic Ears: hearing grossly normal bilaterally Eyes General: appearance normal, both eyes and all related structures Neck Neck: Yes normal visual inspection and Yes trachea midline Chest Chest palpation & inspection: normal inspection of the chest Resp Effort & Inspection: normal respiratory effort and able to speak in complete sentences Cardio Rate: regular rate GI Inspection: Yes normal to inspection General: Yes no CVA tenderness Back/Spine/Pelvis Back: no CVA tenderness Skin General skin exam: no rashes or lesions noted Neuro General: patient oriented x3 Extrem General: Yes normal to inspection Psych Appearance: grossly normal and well kempt Mental Status: mental status grossly normal Speech and movement: Normal speech and movement present and Clear speech present Affect: normal affect Attitude: cooperative Thought process: Normal thought process present Thought content: Normal thought content present Insight: Fair insight present (Psych) Judgement: Fair judgement present (Psych) Office Procedures Post Void Residual Post Residual Void Post Void Residual (PVR): 109 50461-Hior Void Residual by ultrasound Results AMB Urinalysis, Automated UA Leukoctes 500 Katlin/uL Last Edit by Dg Cruz on 01/01/23 16:11 UA Nitrite Negative Last Edit by Tiltapdriss Cruz on 01/01/23 16:11 UA Urobilinogen 0.2 mg/dL Last Edit by Arthena Nancy on 01/01/23 16:11 UA Protein 15 mg/dL Last Edit by Dg Cruz on 01/01/23 16:11 UA pH 6.0 Last Edit by Dg Cruz on 01/01/23 16:11 UA Blood 10 Davidson/uL Last Edit by Dg Cruz on 01/01/23 16:11 UA Specific Dexter 1.030 Last Edit by Dg Cruz on 01/01/23 16:11 UA Ketone Negative Last Edit by gD Cruz on 01/01/23 16:11 UA Bilirubin 0 mg/dL Last Edit by Dg Cruz on 01/01/23 16:11 UA Glucose 0 mg/dL Last Edit by Dg Cruz on 01/01/23 16:11 Results Reviewed Results Reviewed: Laboratory Last Values Urine pH (Auto) 6.0 01/01/23 16:10 Specific Dexter (Auto) 1.030 01/01/23 16:10 Urine Protein (Auto) 15 mg/dL 01/01/23 16:10 Glucose (UA)(Auto) 0 mg/dL 01/01/23 16:10 Urine Ketones (Auto) Negative 01/01/23 16:10 Urine Blood (Auto) 10 Davidson/uL 01/01/23 16:10 Urine Nitrite (Auto) Negative 01/01/23 16:10 Urine Bilirubin (Auto) 0 mg/dL 01/01/23 16:10 Urine Urobilinogen (Auto) 0.2 mg/dL 01/01/23 16:10 Leukocyte Esterase (Auto) 500 Katlin/uL 01/01/23 16:10 Assessment & Plan Assessment & Plan (1) Overactive bladder: Code(s): N32.81 - Overactive bladder (2) UTI (urinary tract infection): Code(s): N39.0 - Urinary tract infection, site not specified (3) Dysuria: Code(s): R30.0 - Dysuria Plan In office urinalysis results reviewed with the patient today; as noted above; will send for urine culture. PVR 109 mL Discussed at length potential causes as well as affects of incomplete bladder emptying Discussed trialing 1 mg of terazosin at bedtime to assist with incomplete bladder emptying Discussed attempting to double void Discussed bladder triggers/irritants. Discussed at length importance of taking care of herself to be able to take care of her children. Discussed near future in office cystoscopy if symptoms persist and/or worsen. Follow-up in 6 weeks with PVR; or sooner with any issues, concerns, and or questions. Orders: Orders Urine Culture Today N39.0 - Urinary tract infection, site not specified AMB Urinalysis Automated Today Z13.9 - Encounter for screening, unspecified AMB Post Void Residual by ultrasound Today N39.0 - Urinary tract infection, site not specified Medications: New terazosin 1 mg PO BEDTIME 30 days 30 caps 1RF R39.12 - Poor urinary stream Discontinued solifenacin (Vesicare) Discontinued Reason: Doctor's Order 5 mg PO DAILY 90 days 90 tabs 0RF Patient Instructions: The patient had an opportunity to ask questions regarding the treatment plan. All questions were answered. Physical exam, labs, and imaging were discussed and reviewed in detail. As well as risks, benefits, and discussion of treatment choices. No major barriers to understanding were identified. The patient expressed understanding and agreement with the above treatment plan. The patient was made aware they should contact our office by phone for worsening of their current condition, the appearance of new symptoms, or with any questions or concerns. Compliance is encouraged with any medications and follow up testing that is ordered. It is a privilege to be allowed the opportunity to participate in? your urological care.? Again, if you have any questions or concerns If you have any questions or concerns please do not hesitate to contact me. The office is [phone]. This note is constructed using voice recognition software. While every effort has been made to ensure accuracy direct support professional errors may have been included. Yours sincerely, CICI Flores-PAZ Coding Level of Care Code Est Pt Level 4 (29635) Diagnoses Overactive bladder N32.81 UTI (urinary tract infection) N39.0 Dysuria R30.0 CPT Codes Post Residual Void - PVR CPT Code: 62682-Nqpn Void Residual by ultrasound ([id number])
== END 2023-01-01 15:52 ==
PROVIDERS: PCP Internal Medicine; Visit Provider Nurse Practitioner Family
DX: N32.81 Overactive bladder (principal); N39.0 Urinary tract infection, site not specified; R30.0 Dysuria; Z13.9 Encounter for screening, unspecified
CPT/HCPCS: 99214

== ENCOUNTER 2023-03-03 15:51 | Outpatient (AMB) | payer OTHER, SELFPAY ==
[2023-03-03 15:55] VITALS: BP 118/72; PULSE 87; O2SAT 94; BMI 39.6
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
== END 2023-03-03 17:00 | disposition home or self-care (01) ==
PROVIDERS: PCP Internal Medicine; Visit Provider Internal Medicine
DX: M79.7 Fibromyalgia (principal); G43.009 Migraine without aura, not intractable, without status migrainosus; G56.02 Carpal tunnel syndrome, left upper limb; M25.50 Pain in unspecified joint; S70.12XS Contusion of left thigh, sequela; S50.02XS Contusion of left elbow, sequela; S80.02XS Contusion of left knee, sequela; K29.70 Gastritis, unspecified, without bleeding; E55.9 Vitamin D deficiency, unspecified; K59.00 Constipation, unspecified; G47.00 Insomnia, unspecified; F41.9 Anxiety disorder, unspecified
CPT/HCPCS: 99214

== ENCOUNTER 2023-04-01 14:49 | Outpatient (REF) | payer OTHER, SELFPAY | END 2023-04-01 14:50 | disposition home or self-care (01) | LOC: HO.LNP 14:49 | PROVIDERS: PCP Internal Medicine; Visit Provider Nurse Practitioner Family | DX: N39.0 Urinary tract infection, site not specified (principal); N32.81 Overactive bladder; R33.9 Retention of urine, unspecified | CPT/HCPCS: 51798; 81003; 87086; 87088; 99212 ==

== ENCOUNTER 2023-04-01 14:49 | Outpatient (AMB) | payer OTHER, SELFPAY ==
--- NOTE | 2023-04-01 15:05 | MHC.OFFVIS ---
Intake Intake Visit Reasons: follow up/pvr Intake Note: Patient is present for follow up OAB/Micro Hematuria/Dysuria Urology Medications: d/c vesicare, terazosin Blood Thinner: none PVR: 108ml's Cushion Sewer Required: No Accompanied by: Self / Same As Patient Allergies cashew nut Allergy (Severe, Verified 04/05/23 17:33) ANAPHYLAXIS cat dander Allergy (Severe, Verified 04/05/23 17:33) ITCHY SWELLING pregabalin [From Lyrica] Allergy (Severe, Verified 04/05/23 17:33) headaches,lower facial/chin swelling gabapentin Allergy (Intermediate, Verified 04/05/23 17:33) confusion, nausea house dust Allergy (Intermediate, Verified 04/05/23 17:33) Unknown Medication List - Last Reconciled 04/05/23 by CICI Flores-PAZ epinephrine IM DIRECTED ergocalciferol (vitamin D2) 1,250 mcg PO QWEEK 90 days ibuprofen 600 mg PO Q6H PRN levonorgestrel vaginal meloxicam 15 mg PO DAILY metronidazole 500 mg PO BID 7 days omeprazole 20 mg PO DAILY 30 days polyethylene glycol 3350 17 grams PO DAILY 30 days quetiapine 25 mg PO BID PRN terazosin 1 mg PO BEDTIME 30 days HPI HPI Comments History of Present Illness Details Arminda is a pleasant 37-year-old female patient of Dr. Vargas. She has a past medical history of migraines, anxiety, depression, peripheral neuropathy, GERD, insomnia, fibromyalgia, constipation, and carpal tunnel syndrome. She presents to the office today for follow-up. Of note, patient was seen approximately 3 months ago at which time she was started on low dose terazosin for incomplete bladder emptying. In discussion with the patient today she reports to be doing and feeling well. She discusses not noting a difference in her lower urinary tract symptoms however has been taking terazosin 1 mg at bedtime as prescribed. She reports she continues with intermittent episodes of urinary frequency and urgency. However she also discusses being busy at work and will go in entire work day without urinating. In office urinalysis results reviewed with the patient today. Discussed further assessment with microgen and or urine culture. Previous workup has included a retroperitoneal ultrasound noting bilateral kidneys with no calculi, lesions, or hydronephrosis noted. The bladder is well distended and normal. Bilateral ureteral jets are demonstrated. Prevoid bladder volume is approximately 300 mL. Postvoid bladder volume is approximately 30 mL. She has previously trialed oxybutynin and VESIcare for overactive bladder symptoms however did not find this helpful. When asked she denies changes to urinary stream, hematuria, flank pain, fever, and or chills. She discusses at length taking care of her son who has been dealing with mental health issues. PVR 109ml's. Discussed pelvic floor therapy however patient states she will not be able to attend at this time. Discussed near future in office cystoscopy if symptoms persist and or worsen. She otherwise offers no issues or concerns at this time. [facility] Medical History Obesity, Class III, BMI 40-49.9 (morbid obesity) IUD (intrauterine device) in place Morbid obesity with BMI of 45.0-49.9, adult Urge incontinence Insomnia GERD without esophagitis Peripheral neuropathy Depression Anxiety Migraine Fibromyalgia Vitamin D deficiency Constipation Bilateral hand pain Surgical History H/O bilateral breast reduction surgery (~06/2012) History of section History of tubal ligation Family History Father No problems noted. Mother No problems noted. 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 Cognitive needs: No Hearing needs: No Vision needs: Yes Female Reproductive History Menstrual Age of Menarche: 13 Review of Systems Const Reports as per HPI Eyes Reports no additional complaints ENT Reports no additional complaints Card Reports no additional complaints Resp Reports no additional complaints GI Reports as per HPI Reports as per HPI Musc Reports as per HPI Neuro Reports as per HPI Psych Reports as per HPI Endo Reports no additional complaints Jesus/Lymph Reports no additional complaints Aller/Immun Reports no additional complaints Physical Exam Const General: cooperative, healthy appearing, comfortable, no acute distress, well developed, alert and awake Nutritional Appearance: overweight Orientation/consciousness: patient oriented x3 Limitations: no limitations HEENT Head: Yes normal to inspection, Yes normocephalic and Yes atraumatic Ears: hearing grossly normal bilaterally Eyes General: appearance normal, both eyes and all related structures Neck Neck: Yes normal visual inspection and Yes trachea midline Chest Chest palpation & inspection: normal inspection of the chest Resp Effort & Inspection: normal respiratory effort and able to speak in complete sentences Cardio Rate: regular rate GI Inspection: Yes normal to inspection General: Yes no CVA tenderness Back/Spine/Pelvis Back: no CVA tenderness Skin General skin exam: no rashes or lesions noted Neuro General: patient oriented x3 Extrem General: Yes normal to inspection Psych Appearance: grossly normal and well kempt Mental Status: mental status grossly normal Speech and movement: Normal speech and movement present and Clear speech present Affect: normal affect Attitude: cooperative Thought process: Normal thought process present Thought content: Normal thought content present Insight: Fair insight present (Psych) Judgement: Fair judgement present (Psych) Office Procedures Post Void Residual Post Residual Void Post Void Residual (PVR): 108 [id number] Void Residual by ultrasound Results AMB Urinalysis, Automated UA Leukoctes 500 [place]/uL Last Edit by [employer] on 04/01/23 15:36 UA Nitrite Negative Last Edit by [employer] on 04/01/23 15:36 UA Urobilinogen 0.2 mg/dL Last Edit by [employer] on 04/01/23 15:36 UA Protein 0 mg/dL Last Edit by [employer] on 04/01/23 15:36 UA pH 8.0 Last Edit by [employer] on 04/01/23 15:36 UA Blood 0 [place]/uL Last Edit by [employer] on 04/01/23 15:36 UA Specific [place] 1.010 Last Edit by [employer] on 04/01/23 15:36 UA Ketone Negative Last Edit by [employer] on 04/01/23 15:36 UA Bilirubin 0 mg/dL Last Edit by [employer] on 04/01/23 15:36 UA Glucose 0 mg/dL Last Edit by [employer] on 04/01/23 15:36 Results Reviewed Results Reviewed: Laboratory Last Values Urine pH (Auto) 8.0 04/01/23 15:11 Specific [place] (Auto) 1.010 04/01/23 15:11 Urine Protein (Auto) 0 mg/dL 04/01/23 15:11 Glucose (UA)(Auto) 0 mg/dL 04/01/23 15:11 Urine Ketones (Auto) Negative 04/01/23 15:11 Urine Blood (Auto) 0 [place]/uL 04/01/23 15:11 Urine Nitrite (Auto) Negative 04/01/23 15:11 Urine Bilirubin (Auto) 0 mg/dL 04/01/23 15:11 Urine Urobilinogen (Auto) 0.2 mg/dL 04/01/23 15:11 Leukocyte Esterase (Auto) 500 [place]/uL 04/01/23 15:11 Assessment & Plan Assessment & Plan (1) UTI (urinary tract infection): Code(s): N39.0 - Urinary tract infection, site not specified (2) Overactive bladder: Code(s): N32.81 - Overactive bladder (3) Incomplete bladder emptying: Code(s): R33.9 - Retention of urine, unspecified Plan In office urinalysis results reviewed with the patient today; as noted above; will send for urine culture and microgen testing Start Flagyl Continue terazosin 1 mg at bedtime. Discussed and stressed the importance of attempting to double void to assist with incomplete bladder emptying. Discussed and stressed the importance of drinking plenty of fluid as well as attempting to empty bladder at least every 3 hours. Discussed at length potential causes as well as affects of incomplete bladder emptying Discussed bladder triggers/irritants. . Discussed near future in office cystoscopy if symptoms persist and/or worsen. Follow-up in 1 month with PVR; or sooner with any issues, concerns, and or questions Orders: Orders AMB Urinalysis Automated 04/01/23 Z13.9 - Encounter for screening, unspecified AMB Post Void Residual by ultrasound 04/01/23 N32.81 - Overactive bladder Urine Culture 04/01/23 N39.0 - Urinary tract infection, site not specified Patient Instructions: The patient had an opportunity to ask questions regarding the treatment plan. All questions were answered. Physical exam, labs, and imaging were discussed and reviewed in detail. As well as risks, benefits, and discussion of treatment choices. No major barriers to understanding were identified. The patient expressed understanding and agreement with the above treatment plan. The patient was made aware they should contact our office by phone for worsening of their current condition, the appearance of new symptoms, or with any questions or concerns. Compliance is encouraged with any medications and follow up testing that is ordered. It is a privilege to be allowed the opportunity to participate in? your urological care.? Again, if you have any questions or concerns If you have any questions or concerns please do not hesitate to contact me. The office is [phone]. This note is constructed using voice recognition software. While every effort has been made to ensure accuracy [employer] professor errors may have been included. Yours sincerely, CHARLIE Flores Coding Level of Care Code Est Pt Level 4 (34986) Diagnoses UTI (urinary tract infection) N39.0 Overactive bladder N32.81 Incomplete bladder emptying R33.9 CPT Codes Post Residual Void - PVR CPT Code: 65829-Atiq Void Residual by ultrasound ([id number])
== END 2023-04-01 15:58 | disposition home or self-care (01) ==
PROVIDERS: PCP Internal Medicine; Visit Provider Nurse Practitioner Family
DX: N39.0 Urinary tract infection, site not specified (principal); N32.81 Overactive bladder; R33.9 Retention of urine, unspecified
CPT/HCPCS: 99214

== ENCOUNTER 2023-04-13 16:00 | Outpatient (RCR) | payer OTHER, SELFPAY ==
--- NOTE | 2023-03-19 17:59 | MHC.PT.EP ---
[facility] [place] [facility] [place] [facility] [place] [facility] [address] [phone] F: [phone] F: [phone] F: [phone] F: [phone] Physical Therapy Plan of Care Date of Evaluation: 03/19/23 Date of Surgery: Diagnosis: LEFT knee unilateral primary OA LEFT knee muscle strain, fascia and tendon of post muscle group at thigh LEFT knee patellofemoral arthritis LEFT hamstring muscle strain Assessment: Patient is a pleasant 37 y.o. female who is referred to PT by Savita Roman PA-C, with Dx of LEFT knee unilateral primary OA, LEFT knee muscle strain, fascia and tendon of post muscle group at thigh, LEFT knee patellofemoral arthritis, LEFT hamstring muscle strain. Patient impairments include pain, localized edema, limited ROM, weakness, antalgic gait. Patient current functional limitations are stair use, squatting, prolonged sitting, prolonged walking, pressure on back of knee, stair use. Patient will benefit from skilled PT to address aforementioned impairments and functional limitations to meet established goals. Frequency and Duration: The patient will be seen 2x/week for 4 weeks Short Term Goals: 2 weeks Patient demonstrates consistency and independence with HEP to self manage symptoms. Longterm Goals: 4 weeks Patient presents with increased L knee flexion 125 degrees to be able to perform squat to low surface. Patient presents with increased L knee extensino 5/5 to be able to ascend/descend stairs reciprocally. Treatment Plan: Modalities to reduce pain, spasms and effusion. Manual therapy to restore motion and function. Therapeutic exercise to improve strength and flexibility. Neuromuscular re-education for posture and balance. Therapeutic activities to return to functional activities of daily living. Electronically signed by: Ambrose Hinton, PT, DPT Please sign and return to therapist. Thank you for your referral.
--- NOTE | 2023-06-16 12:29 | MHC.PT.DC ---
[facility] [place] Office [place] Office [place] Office [address] Keenan Briceno [address] [facility] [phone] F: [phone] F: [phone] F: [phone] F: [phone] Physical Therapy Discharge Report Diagnosis: LEFT knee unilateral primary OA LEFT knee muscle strain, fascia and tendon of post muscle group at thigh LEFT knee patellofemoral arthritis LEFT hamstring muscle strain Date of Surgery: Date of Evaluation: 03/19/23 Date of Discharge: 06/16/23 Treatments to Date: 3 Cancellations to Date: 7 No Shows to Date: 0 Discharge Status: Independent with HEP Patient Elected to Stop Discharge Summary: Arminda canceled her remaining visits after her session on 04/13/23 as she reported having insurance conerns and wanted to cease PT at this time. Electronically signed by: Ambrose Hinton PT, DPT Please sign and return to therapist. Thank you for your referral.
== END 2023-06-16 12:29 | disposition home or self-care (01) ==
LOC: HO.PT 16:00
PROVIDERS: PCP Internal Medicine; Visit Provider Physician Assistant
DX: M17.12 Unilateral primary osteoarthritis, left knee (principal); S76.312A Strain of muscle, fascia and tendon of the posterior muscle group at thigh level, left thigh, initial encounter
CPT/HCPCS: 97035; 97110; 97140; 97161

== ENCOUNTER 2023-04-15 09:19 | Outpatient (AMB) | payer SELFPAY ==
--- NOTE | 2023-04-15 10:25 | AM.OFFWIN_ITS ---
Intake Vital Signs 04/15/23 10:31 Height 5 ft 6 in Weight 110.847 kg BMI 39.4 BP 126/70 Blood Pressure Location Lt brachial Position Sitting Pulse 98 Pulse Source Pulse Oximeter Temp 98.8 F Temp Source Temporal Artery Scan Pulse Oximetry (%) 97 Oxygen Delivery Method Room Air Intake Visit Reasons: EP fever 100 short breath migraine [id number] Intake Note: Pt is here c/o fever of 100. Pt also states she is having SOB and constant migraines. Pt has c/o bilateral ear pain and body aches. Patient Tobacco Use Status: Never used Tobacco Allergies cashew nut Allergy (Severe, Verified 04/15/23 10:30) ANAPHYLAXIS cat dander Allergy (Severe, Verified 04/15/23 10:30) ITCHY SWELLING pregabalin [From Lyrica] Allergy (Severe, Verified 04/15/23 10:30) headaches,lower facial/chin swelling gabapentin Allergy (Intermediate, Verified 04/15/23 10:30) confusion, nausea house dust Allergy (Intermediate, Verified 04/15/23 10:30) Unknown Do you need a note to return to daycare/school/sports/work: Yes HPI HPI Comments History of Present Illness Details 1025 37-year-old female history of incomplete bladder emptying, cubital tunnel, carpal tunnel, gastritis, fatigue, sleep disorder, obesity, migraine, depression, anxiety presenting to the clinic for sick visit complaining of fatigue, malaise, myalgias, fevers T max 100F, chills, SOB, ear pain, sinus pressure, productive cough, CP and sob w/ cough ( not w/ exertion or at rest) and constant migraines X5 days not improving. NO sick contacgts Physical examination benign Likely viral illness such as flu /COVID/ RSV vs sinusitis ( most likely) vs bronchitis vs OM/OE. . Unlikely urinary tract infection, pneumonia, meningitis, encephalitis, pulmonary embolism, mastoiditis,acs, dissection . No signs of throat airway, retropharyngeal abscess, peritonsillar abscess or epiglottitis. Unlikely strep Plan viral testing, Tylenol a home and augmenting for likely sinusitis.. Reassurance. Educated patient on diagnosis and treatment plan, answered all question, patient verbalizes understanding. At this time patient will be discharged home, advised to return with new or worsening symptoms. Educated on worrisome signs and symptoms and when to return. At this time I feel comfortable discharge home. [facility], [facility] Medical History Obesity, Class III, BMI 40-49.9 (morbid obesity) IUD (intrauterine device) in place Morbid obesity with BMI of 45.0-49.9, adult Urge incontinence Insomnia GERD without esophagitis Peripheral neuropathy Depression Anxiety Migraine Fibromyalgia Vitamin D deficiency Constipation Bilateral hand pain Surgical History H/O bilateral breast reduction surgery (~06/2012) History of section History of tubal ligation Family History Father No problems noted. Mother No problems noted. 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 Cognitive needs: No Hearing needs: No Vision needs: Yes Female Reproductive History Menstrual Age of Menarche: 13 Review of Systems Const Details: Constitutional : No Weight loss, No Fever, No Chills, + Fatigue, + Malaise ENT/Mouth : + sore throat, No Rhinorrhea, + ear pain Eyes: No Eye Pain, No Swelling, No Redness Cardiovascular : No Chest Pain, No SOB, No Dyspnea on Exertion, No Orthopnea, No Edema, No Palpitations Respiratory : + Cough, + Sputum, No Wheezing Gastrointestinal : No Nausea, No Vomiting, No Diarrhea, No Constipation, No abdominal Pain, No Hematochezia, No Melena Genitourinary : No Dysuria, No Urinary Frequency, No Hematuria, Musculoskeletal : No joint pain, + Myalgias, No Joint Swelling Skin : No Skin Lesions, No rash Neuro : No Weakness, No Numbness, No Dizziness, No Headache Psych : No Anxiety/Panic, No Depression All other systems reviewed and are negative All systems reviewed & are unremarkable except as noted in HPI and below Physical Exam Vital Signs: Last Vital Signs Temp 98.8 F 04/15/23 10:31 Pulse 98 04/15/23 10:31 BP 126/70 04/15/23 10:31 Pulse Ox 97 04/15/23 10:31 Oxygen Delivery Method Room Air 04/15/23 10:31 BMI result Body Mass Index 39.4 vital signs stable Appearance: Alert.? Oriented X3.? No acute distress.? patient sounds congested Head: Normocephalic, atraumatic, no step-offs or deformities Eyes: Pupils equal, round and reactive to light.? ENT: Pharynx normal. Uvula midline no abscess, or exudate. ??External ears normal, TMs normal bilaterally and EAC's normal. No pain with manipulation of external ears bilaterally. No mastoid tenderness. Neck: Normal inspection.? Neck supple.? CVS: Normal heart rate and rhythm.? Pulses normal.? Respiratory: No respiratory distress.? Breath sounds normal.? Abdomen: Soft and nontender.? Skin: Skin warm and dry.? Normal skin color.? Normal skin turgor.? Extremities: No lower extremity edema.? No calf ttp. 5/5 strength to bilateral upper and lower extremities Back: No midline tenderness, no C-spine tenderness, full range of motion, no CVA tenderness bilaterally Neuro: Oriented X 3.? No motor deficit.? No sensory deficit. CN 2-12 intact Assessment & Plan Assessment & Plan (1) Sinusitis: Code(s): J32.9 - Chronic sinusitis, unspecified Plan Take your medications as prescribed. If you were prescribed antibiotics today, it is important that you take your medication to their entirety, do not skip any doses, do not finish them early. Follow-up with your primary care provider this week. Return to the emergency department with new or worsening symptoms. Such as fevers, chills, chest pain, shortness of breath, nausea, vomiting, dizziness, headache, vision changes, lethargy In case of emergency call 911 Orders: Orders SARS-CoV2/FLU/RSV Today B34.9 - Viral infection, unspecified BinaxNOW Covid-19 Ag Today J32.9 - Chronic sinusitis, unspecified Medications: New acetaminophen (Tylenol Extra Strength) 500 mg PO QID PRN 30 tabs 0RF pain ibuprofen 600 mg PO Q6H PRN 30 tabs 0RF pain prednisone 40 mg (2 x 20 mg) PO DAILY 10 tabs 0RF 5 days amoxicillin-pot clavulanate 875-125 mg 1 tab PO BID 20 tabs 0RF 10 days Coding Level of Care Code Est Pt Level 3 (36226) Diagnoses Sinusitis J32.9
[2023-04-15 10:31] VITALS: BP 126/70; PULSE 98; TEMP 37.1; O2SAT 97; BMI 39.4
== END 2023-04-15 11:30 | disposition home or self-care (01) ==
PROVIDERS: PCP Internal Medicine; Visit Provider Physician Assistant
DX: R50.9 Fever, unspecified (principal); R05.9 Cough, unspecified; G43.909 Migraine, unspecified, not intractable, without status migrainosus; R53.83 Other fatigue
CPT/HCPCS: 99213

== ENCOUNTER 2023-04-15 10:51 | Outpatient (REF) | payer OTHER, SELFPAY ==
[2023-04-15 14:22] LABS: Influenza A PCR NEGATIVE (Negative); Influenza B PCR NEGATIVE (Negative); Resp Syncy Virus RNA Qual PCR POSITIVE (Negative); SARS COV2 PCR INHOUSE NEGATIVE (Negative)
== END 2023-04-15 10:52 | disposition home or self-care (01) ==
LOC: HO.LAB 10:51
PROVIDERS: Visit Provider Physician Assistant
DX: B34.9 Viral infection, unspecified (principal); Z11.52 Encounter for screening for COVID-19
CPT/HCPCS: 0241U

== ENCOUNTER 2023-04-15 10:54 | Outpatient (REF) | payer SELFPAY ==
[2023-04-15 11:27] LABS: Binax Internal Control QC Valid; Binax Now Covid-19 Ag Negative (Negative); Binax Performed by: PAULP
== END 2023-04-15 10:55 | disposition home or self-care (01) ==
LOC: HO.HMGCLDS 10:54
PROVIDERS: PCP Internal Medicine; Visit Provider Physician Assistant
DX: Z11.52 Encounter for screening for COVID-19 (principal); J32.9 Chronic sinusitis, unspecified
CPT/HCPCS: 87811; C9803

== ENCOUNTER 2023-05-18 14:50 | Outpatient (AMB) | payer OTHER, SELFPAY ==
--- NOTE | 2023-05-18 14:57 | A.OFFVIS_ITS ---
Intake Intake Visit Reasons: follow up/PVR Intake Note: Patient is present for follow up OAB/Micro Hematuria/Dysuria Urology Medications: terazosin (patient stated not taking) Blood Thinner: none PVR: 23ml's Wire Technician Required: No Accompanied by: Self / Same As Patient Allergies cashew nut Allergy (Severe, Verified 05/18/23 21:56) ANAPHYLAXIS cat dander Allergy (Severe, Verified 05/18/23 21:56) ITCHY SWELLING pregabalin [From Lyrica] Allergy (Severe, Verified 05/18/23 21:56) headaches,lower facial/chin swelling gabapentin Allergy (Intermediate, Verified 05/18/23 21:56) confusion, nausea house dust Allergy (Intermediate, Verified 05/18/23 21:56) Unknown Medication List - Last Reconciled 05/18/23 by CICI Flores- acetaminophen (Tylenol Extra Strength) 500 mg PO QID PRN epinephrine IM DIRECTED ergocalciferol (vitamin D2) 1,250 mcg PO QWEEK 90 days ibuprofen 600 mg PO Q6H PRN levonorgestrel vaginal meloxicam 15 mg PO DAILY omeprazole 20 mg PO DAILY 30 days polyethylene glycol 3350 17 grams PO DAILY 30 days quetiapine 25 mg PO BID PRN HPI HPI Comments History of Present Illness Details Arminda is a pleasant 37-year-old female patient of Dr. Vargas. She has a past medical history of migraines, anxiety, depression, peripheral neuropathy, GERD, insomnia, fibromyalgia, constipation, and carpal tunnel syndrome. She presents to the office today for follow-up. Of note, patient was seen approximately 3 months ago at which time she was started on low dose terazosin for incomplete bladder emptying and treated for positive microgen results. In discussion with the patient today she reports noting lower urinary tract symptoms have somewhat resolved. She reports having since stopped terazosin. She currently denies any bothersome urinary issues or concerns. She reports having followed up approximately 1 month ago at urgent care for RSV and has since been feeling and doing much better. She discusses feeling better with her lower urinary tract symptoms since she has been using the bathroom more frequently in without a sense of urgency. In office urinalysis results reviewed with the patient today. PVR 23 mL. Discussed decrease in postvoid residual s chantale her last office visit here. While trending PVRs it appears today's PVR has been within normal limits. Discussed at length affects of incomplete bladder emptying. She currently denies urinary urgency, urinary frequency, incontinence, nocturia, hematuria, dysuria, foul smelling urine,changes to urinary stream, flank pain, fever, and or chills. She is happy with her current voiding parameters. Previous workup has included a retroperitoneal ultrasound noting bilateral kidneys with no calculi, lesions, or hydronephrosis noted. The bladder is well distended and normal. Bilateral ureteral jets are demonstrated. Prevoid bladder volume is approximately 300 mL. Postvoid bladder volume is approximately 30 mL. She has previously trialed oxybutynin and VESIcare for overactive bladder symptoms however did not find this helpful. Discussed pelvic floor therapy however patient states she will not be able to attend at this time. Discussed near future in office cystoscopy if symptoms persist and or worsen. She otherwise offers no issues or concerns at this time. [facility] Medical History Obesity, Class III, BMI 40-49.9 (morbid obesity) IUD (intrauterine device) in place Morbid obesity with BMI of 45.0-49.9, adult Urge incontinence Insomnia GERD without esophagitis Peripheral neuropathy Depression Anxiety Migraine Fibromyalgia Vitamin D deficiency Constipation Bilateral hand pain Surgical History H/O bilateral breast reduction surgery (~06/2012) History of section History of tubal ligation Family History Father No problems noted. Mother No problems noted. 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 Cognitive needs: No Hearing needs: No Vision needs: Yes Female Reproductive History Menstrual Age of Menarche: 13 Review of Systems Const Reports as per HPI Eyes Reports no additional complaints ENT Reports no additional complaints Card Reports no additional complaints Resp Reports no additional complaints GI Reports as per HPI Reports as per HPI Musc Reports as per HPI Neuro Reports as per HPI Psych Reports as per HPI Endo Reports no additional complaints Jesus/Lymph Reports no additional complaints Aller/Immun Reports no additional complaints Physical Exam Const General: cooperative, healthy appearing, comfortable, no acute distress, well developed, alert and awake Nutritional Appearance: overweight Orientation/consciousness: patient oriented x3 Limitations: no limitations HEENT Head: Yes normal to inspection, Yes normocephalic and Yes atraumatic Ears: hearing grossly normal bilaterally Eyes General: appearance normal, both eyes and all related structures Neck Neck: Yes normal visual inspection and Yes trachea midline Chest Chest palpation & inspection: normal inspection of the chest Resp Effort & Inspection: normal respiratory effort and able to speak in complete sentences Cardio Rate: regular rate GI Inspection: Yes normal to inspection General: Yes no CVA tenderness Back/Spine/Pelvis Back: no CVA tenderness Skin General skin exam: no rashes or lesions noted Neuro General: patient oriented x3 Extrem General: Yes normal to inspection Psych Appearance: grossly normal and well kempt Mental Status: mental status grossly normal Speech and movement: Normal speech and movement present and Clear speech present Affect: normal affect Attitude: cooperative Thought process: Normal thought process present Thought content: Normal thought content present Insight: Fair insight present (Psych) Judgement: Fair judgement present (Psych) Office Procedures Post Void Residual Post Residual Void Post Void Residual (PVR): 23 [id number] Void Residual by ultrasound Results AMB Urinalysis, Automated UA Leukoctes 15 [place]/uL Last Edit by [employer] Nancy on 05/18/23 15:34 UA Nitrite Negative Last Edit by [employer] Nancy on 05/18/23 15:34 UA Urobilinogen 0.2 mg/dL Last Edit by [employer] on 05/18/23 15:34 UA Protein 15 mg/dL Last Edit by [employer] on 05/18/23 15:34 UA pH 6.0 Last Edit by [email or web address] on 05/18/23 15:34 UA Blood 10 Davidson/uL Last Edit by [email or web address] on 05/18/23 15:34 UA Specific [place] 1.020 Last Edit by [email or web address] on 05/18/23 15:34 UA Ketone Negative Last Edit by Dg Cruz on 05/18/23 15:34 UA Bilirubin 0 mg/dL Last Edit by Dg Cruz on 05/18/23 15:34 UA Glucose 0 mg/dL Last Edit by Dg Cruz on 05/18/23 15:34 Results Reviewed Results Reviewed: Laboratory Last Values Urine pH (Auto) 6.0 05/18/23 15:32 Specific [place] (Auto) 1.020 05/18/23 15:32 Urine Protein (Auto) 15 mg/dL 05/18/23 15:32 Glucose (UA)(Auto) 0 mg/dL 05/18/23 15:32 Urine Ketones (Auto) Negative 05/18/23 15:32 Urine Blood (Auto) 10 Daivdson/uL 05/18/23 15:32 Urine Nitrite (Auto) Negative 05/18/23 15:32 Urine Bilirubin (Auto) 0 mg/dL 05/18/23 15:32 Urine Urobilinogen (Auto) 0.2 mg/dL 05/18/23 15:32 Leukocyte Esterase (Auto) 15 [place]/uL 05/18/23 15:32 Assessment & Plan Assessment & Plan (1) UTI (urinary tract infection): Code(s): N39.0 - Urinary tract infection, site not specified (2) Overactive bladder: Code(s): N32.81 - Overactive bladder (3) Incomplete bladder emptying: Code(s): R33.9 - Retention of urine, unspecified Plan In office urinalysis results reviewed with the patient today; as noted above Discussed and stressed the importance of attempting to double void to assist with incomplete bladder emptying. Discussed and stressed the importance of drinking plenty of fluid as well as attempting to empty bladder at least every 3 hours. Discussed at length potential causes as well as affects of incomplete bladder emptying. Will discontinue terazosin as patient does not want to be on this medication; however did discuss trans of postvoid residuals and significant improvement in PVR with terazosin 1 mg at bedtime Discussed bladder triggers/irritants. Patient currently denies any bothersome urinary issues or concerns. She is happy with her current voiding parameters. Discussed near future in office cystoscopy if symptoms arise, persist and/or worsen. Follow-up in 3 months with PVR; or sooner with any issues, concerns, and or questions Orders: Orders AMB Post Void Residual by ultrasound Today R33.9 - Retention of urine, unspecified AMB Urinalysis Automated Today Z13.9 - Encounter for screening, unspecified Patient Instructions: The patient had an opportunity to ask questions regarding the treatment plan. All questions were answered. Physical exam, labs, and imaging were discussed and reviewed in detail. As well as risks, benefits, and discussion of treatment choices. No major barriers to understanding were identified. The patient expressed understanding and agreement with the above treatment plan. The patient was made aware they should contact our office by phone for worsening of their current condition, the appearance of new symptoms, or with any questions or concerns. Compliance is encouraged with any medications and follow up testing that is ordered. It is a privilege to be allowed the opportunity to participate in? your urological care.? Again, if you have any questions or concerns If you have any questions or concerns please do not hesitate to contact me. The office is [phone]. This note is constructed using voice recognition software. While every effort has been made to ensure accuracy fine chemicals operator errors may have been included. Yours sincerely, CICI Flores-PAZ Coding Level of Care Code Est Pt Level 3 (04183) Diagnoses UTI (urinary tract infection) N39.0 Overactive bladder N32.81 Incomplete bladder emptying R33.9 CPT Codes Post Residual Void - PVR CPT Code: 86027-[id number] Void Residual by ultrasound ([id number])
== END 2023-05-18 15:56 | disposition home or self-care (01) ==
PROVIDERS: PCP Internal Medicine; Visit Provider Nurse Practitioner Family
DX: N39.0 Urinary tract infection, site not specified (principal); N32.81 Overactive bladder; R33.9 Retention of urine, unspecified
CPT/HCPCS: 99213

== ENCOUNTER → 2023-05-18 14:50 | Outpatient (BNVA) | payer OTHER, SELFPAY | PROVIDERS: PCP Internal Medicine; Visit Provider Nurse Practitioner Family | DX: N39.0 Urinary tract infection, site not specified (principal); N32.81 Overactive bladder; R33.9 Retention of urine, unspecified | CPT/HCPCS: 51798; 81003; 99212 ==

== ENCOUNTER 2023-07-01 14:04 | Outpatient (AMB) | payer OTHER, SELFPAY ==
--- NOTE | 2023-07-01 14:09 | A.OFFVIS_ITS ---
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 Doing well with no concerns. Admits to not eating healthy. She does not exercise, active walking at work. Mirena inserted 07/2020. Currently is sexually active. She denies vaginal itching and irritation. STI screening offered; she accepts. Denies family history of breast, ovarian or colon cancer. Last pap smear 2020, negative. [facility] Medical History Obesity, Class III, BMI 40-49.9 (morbid obesity) IUD (intrauterine device) in place Morbid obesity with BMI of 45.0-49.9, adult Urge incontinence Insomnia GERD without esophagitis Peripheral neuropathy Depression Anxiety Migraine Fibromyalgia Vitamin D deficiency Constipation Bilateral hand pain Surgical History H/O bilateral breast reduction surgery (~06/2012) History of section History of tubal ligation Family History Father No problems noted. Mother No problems noted. 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 Cognitive needs: No Hearing needs: No Vision needs: Yes Female Reproductive History Menstrual Age of Menarche: 13 control method: progestin IUCD (Mirena 06/2020) and permanent sterilization Permanent Sterilization: BTL Total pregnancies: 2 Full term: 2 Number of Living Children: 2 Date of last pap smear: 07/18/20 (neg pap and hpv) Review of Systems Const All systems reviewed & are unremarkable except as noted in HPI and below Reports as per HPI Eyes Reports no additional complaints ENT Reports no additional complaints Card Reports no additional complaints Resp Reports no additional complaints GI Reports as per HPI and Reports no additional complaints Reports as per HPI Musc Reports no additional complaints Skin/Breast Reports as per HPI Neuro Reports no additional complaints Psych Reports no additional complaints Endo Reports no additional complaints Jesus/Lymph Reports no additional complaints Aller/Immun Reports no additional complaints Physical Exam Vital Signs: Last Vital Signs BP 110/70 07/01/23 14:13 BMI result Body Mass Index 38.6 Const General: cooperative, healthy appearing, no acute distress, well developed and alert Orientation/consciousness: patient oriented x3 HEENT Head: Yes normal to inspection Eyes General: appearance normal, both eyes and all related structures Neck Neck: Yes normal visual inspection Thyroid: Thyroid normal Chest Other: Bilateral breast reduction scars Chest palpation & inspection: normal inspection of the chest and other (no puckering, dimpling, peau de orange, retraction, discharge, masses) Breast/axilla inspection: normal inspection of the breasts Breast/axilla palpation: normal palpation of the breasts Resp Effort & Inspection: normal respiratory effort GI Inspection: Yes normal to inspection Palpation (GI): Soft to palpation Rectal Exam - Female: deferred General: Yes bladder normal to palpation External Female Exam: normal external appearance and normal appearance of the urethra Speculum Exam - Vagina: normal appearance of the vagina, normal palpation, normal vaginal discharge and other ([place] appearance) Speculum Exam - Cervix: normal appearance of the cervix and normal palpation Bimanual exam- vagina & uterus: normal bimanual exam, normal palpation, uterine size normal, bladder normal to palpation, normal palpation, non-tender and other ([place] appearance) Bimanual Exam- Adnexa, other: no masses Skin General skin exam: no rashes or lesions noted Rashes: no rashes Neuro General: patient oriented x3 Cognition (Neuro): normal cognition Extrem General: Yes normal to inspection Psych Attitude: cooperative Thought process: Normal thought process present Assessment & Plan Assessment & Plan (1) Encounter for well woman exam with routine gynecological exam: Code(s): Z01.419 - Encounter for gynecological examination (general) (routine) without abnormal findings (2) IUD strings lost: Code(s): T83.32XA - Displacement of intrauterine contraceptive device, initial encounter Qualifiers: Encounter type: initial encounter Qualified Code(s): T83.32XA - Displacement of intrauterine contraceptive device, initial encounter (3) Possible exposure to STD: Code(s): Z20.2 - Contact with and (suspected) exposure to infections with a predominantly sexual mode of transmission Plan Discussed: Current recommendations for pap smears per ASCCP guidelines. Breast awareness and periodic breast exams. Maintain a healthy lifestyle including a well balanced diet and routine exercise. IUD surveillance with an ultrasound, follow-up ultrasound findings. STD prevention with condom use. Patient verbalizes understanding and agrees to the plan of care. She was given opportunity to ask questions and all questions were answered to the best of my ability. RTO in one year for annual car spotter examination. This note is constructed using voice recognition software. While every effort has been made to ensure accuracy, drug safety data management specialist errors may have been included. Orders: Orders CT NG by PCR Today T83.32XA - Displacement of intrauterine contraceptive device, initial encounter, Z20.2 - Contact with and (suspected) exposure to infections with a predominantly sexual mode of transmission US pelvic and transvaginal Today T83.32XA - Displacement of intrauterine contraceptive device, initial encounter HIV Ab/Ag Today Z20.2 - Contact with and (suspected) exposure to infections with a predominantly sexual mode of transmission Hepatitis C Antibody Reflex Today Z20.2 - Contact with and (suspected) exposure to infections with a predominantly sexual mode of transmission Bacterial Vaginosis Panel Today N89.8 - Other specified noninflammatory disorders of vagina, T83.32XA - Displacement of intrauterine contraceptive device, initial encounter Hepatitis B Core Antibody Today Z20.2 - Contact with and (suspected) exposure to infections with a predominantly sexual mode of transmission Syphilis Screen Today Z20.2 - Contact with and (suspected) exposure to infections with a predominantly sexual mode of transmission Coding Level of Care Code Est Pt Prev Care 18-39y(02083) Diagnoses Encounter for well woman exam with routine gynecological exam Z01.419 Intrauterine contraceptive device threads lost, initial encounter T83.32XA Encounter type: initial encounter Possible exposure to STD Z20.2
[2023-07-01 14:13] VITALS: BP 110/70; BMI 38.6
== END 2023-07-01 14:55 | disposition home or self-care (01) ==
LOC: HO.HWS 14:04
PROVIDERS: PCP Internal Medicine; Visit Provider Advanced Practice Midwife
DX: Z01.419 Encounter for gynecological examination (general) (routine) without abnormal findings (principal); T83.32XA Displacement of intrauterine contraceptive device, initial encounter; Z20.2 Contact with and (suspected) exposure to infections with a predominantly sexual mode of transmission
CPT/HCPCS: 99395

== ENCOUNTER 2023-07-01 14:04 | Outpatient (REF) | payer OTHER, SELFPAY | END 2023-07-01 14:05 | disposition home or self-care (01) | LOC: HO.LNP 14:04 | PROVIDERS: PCP Internal Medicine; Visit Provider Advanced Practice Midwife | DX: Z01.419 Encounter for gynecological examination (general) (routine) without abnormal findings (principal); Z20.2 Contact with and (suspected) exposure to infections with a predominantly sexual mode of transmission | CPT/HCPCS: 99395 ==

== ENCOUNTER 2023-07-01 14:42 | Outpatient (REF) | payer OTHER, SELFPAY ==
[2023-07-02 02:13] LABS: CT PCR NOT DETECTED (Not Detect.); NG PCR NOT DETECTED (Not Detect.)
[2023-07-02 11:35] LABS: BV Int Neg Control Negative (Negative); BV Int Pos Control Positive (Positive)
== END 2023-07-01 14:43 | disposition home or self-care (01) ==
LOC: HO.LAB 14:42
PROVIDERS: Visit Provider Advanced Practice Midwife
DX: Z20.2 Contact with and (suspected) exposure to infections with a predominantly sexual mode of transmission (principal); T83.32XA Displacement of intrauterine contraceptive device, initial encounter; N89.8 Other specified noninflammatory disorders of vagina
CPT/HCPCS: 0353U; 87480; 87510; 87660

== ENCOUNTER 2023-07-01 15:05 | Outpatient (REF) | payer OTHER, SELFPAY ==
[2023-07-02 07:57] LABS: Syphilis Screen Nonreactive (Nonreactive)
[2023-07-02 08:32] LABS: HBc Num1 0.15 S/CO (0.00-0.79); HIV AB/AG Nonreactive (Nonreactive); HIV Num 1 0.08 S/CO (0.00-0.99); Hepatitis B Core Antibody Nonreactive (Nonreactive)
[2023-07-02 09:12] LABS: ~HepC Num1 0.12 S/CO (0.00-0.79); ~Hepatitis C Antibody Nonreactive (Nonreactive)
== END 2023-07-01 15:06 | disposition home or self-care (01) ==
LOC: HO.CHCLDS 15:05
PROVIDERS: Visit Provider Advanced Practice Midwife
DX: Z11.4 Encounter for screening for human immunodeficiency virus [HIV] (principal); Z20.2 Contact with and (suspected) exposure to infections with a predominantly sexual mode of transmission
CPT/HCPCS: 36415; 86704; 86780; 86803; 87389

== ENCOUNTER 2023-07-01 16:28 | Outpatient (AMB) | payer OTHER, SELFPAY ==
[2023-07-01 16:37] VITALS: BP 110/78; PULSE 63; O2SAT 97; BMI 38.3
--- NOTE | 2023-07-01 16:37 | A.OFFPC_ITS ---
Vital Signs 07/01/23 16:37 Height 5 ft 6 in Weight 237 lb 8 oz BMI 38.3 BP 110/78 Blood Pressure Location Lt brachial Position Sitting Pulse 63 Pulse Source Pulse Oximeter Pulse Oximetry (%) 97 Oxygen Delivery Method Room Air Intake Visit Reasons: GERD, CTS [employer] Required: No Accompanied by: Self / Same As Patient Allergies cashew nut Allergy (Severe, Verified 07/02/23 04:54) ANAPHYLAXIS cat dander Allergy (Severe, Verified 07/02/23 04:54) ITCHY SWELLING pregabalin [From Lyrica] Allergy (Severe, Verified 07/02/23 04:54) headaches,lower facial/chin swelling gabapentin Allergy (Intermediate, Verified 07/02/23 04:54) confusion, nausea house dust Allergy (Intermediate, Verified 07/02/23 04:54) Unknown Medication List - Last Reconciled 07/02/23 by Markell Vargas MD acetaminophen (Tylenol Extra Strength) 500 mg PO QID PRN epinephrine IM DIRECTED ergocalciferol (vitamin D2) 1,250 mcg PO QWEEK 90 days ibuprofen 600 mg PO Q6H PRN levonorgestrel vaginal omeprazole 20 mg PO DAILY 30 days polyethylene glycol 3350 17 grams PO DAILY 30 days quetiapine 25 mg PO BID PRN Tobacco use date assessed: 07/01/23 Dental Screening Dental Screen Date: 07/01/23 Did you have a dental visit in the last 12 months?: Yes Did you have a dental problem in the last 6 months where you did not have access to dental care?: No Was dental information given to patient?: Patient has dentist HPI GERD, CTS HPI Details Patient comes in today for her follow-up visit States that she is still experiencing recurrent pain and discomfort over her left thigh and left knee which she initially injured last year Recalls the she was going to physical therapy for a while and it was helping Would like to get referral again to physical therapy for her left thigh and left knee as well as for her hamstring muscles Patient also states that she has been experiencing increased diffuse pain and joint pains lately - thinks that her fibromyalgia has been flaring up lately due to the cold weather States that she has tried taking some OTC pain relievers with very little relief of her symptoms States that she has even requested recently to be seen by Orthopedics again for consideration in getting her carpal tunnel surgery done soon She denies any headaches or dizziness Denies any chest pains, no shortness of breath No nausea/vomiting but states that she has been feeling bloated again with diffuse abdominal discomfort lately Has reportedly been getting constipated again and thinks that her abdominal symptoms are mostly related to her constipation States that she used to take MiraLax but stopped taking it a while ago but recently got back on it again because of her increasing constipation [facility] Medical History Obesity, Class III, BMI 40-49.9 (morbid obesity) IUD (intrauterine device) in place Morbid obesity with BMI of 45.0-49.9, adult Urge incontinence Insomnia GERD without esophagitis Peripheral neuropathy Depression Anxiety Migraine Fibromyalgia Vitamin D deficiency Constipation Bilateral hand pain Surgical History H/O bilateral breast reduction surgery (~06/2012) History of section History of tubal ligation Family History Father No problems noted. Mother No problems noted. 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 1. Little interest or pleasure in doing things: several days 2. Feeling down, depressed, or hopeless: several days 3. Trouble falling or staying asleep, or sleeping too much: several days 4. Feeling tired or having little energy: several days 5. Poor appetite or overeating: not at all 6. Feeling bad about yourself - or that you are a failure or have let yourself or your family down: not at all 7. Trouble concentrating on things, such as reading the newspaper or watching television: not at all 8. Moving or speaking so slowly that other people could have noticed. Or the opposite - being so fidgety or restless that you have been moving around a lot more than usual: not at all 9. Thoughts that you would be better off or of hurting yourself in some way: not at all Total score: 4 Depression Screening Interpretation: Positive Depression Screening Follow-up: Existing condition and In treatment Depression Screening Done: Yes 35696 - PHQ-9 Billing: Yes Source: Developed by Drs. Celso Joshi, Mary Jo Jaramillo, Tu Powell and colleagues, with an educational brandon from [employer]. Thrive Questionnaire Date Thrive assessed: 07/01/23 I am a: Patient What is your living situation today?: I have a steady place to live Within the past 12 months, did the food you bought not last and you didn't have the money to get more?: Never true Within the past 12 months, did you worry whether your food would run out before you got money to buy more?: Never true Do you have trouble paying for medicines?: No Do you have trouble getting transportation to medical appointments?: No Do you have trouble paying your heating and electricity bill?: No Do you have trouble taking care of your child, family member or friend?: No Do you have trouble with day-to-day activities such as bathing, preparing meals, shopping, managing finances, etc.?: No Are you currently unemployed and looking for a job?: No Are you interested in more education?: No Please select the resources that you would like help with: None Currently or been in a relationship where the following occur: no concerns reported THRIVE Score: 0 AUDIT C Alcohol Use Questionnaire (AUDIT-C) 1. How often do you have a drink containing alcohol?: Never 2. How many drinks containing alcohol do you have on a typical day when you are drinking?: 1 or 2 (0) 3. How often do you have six or more drinks on one occasion?: Never Total Score: 0 Score Reviewed/Action Taken: Yes ABDIRIZAK-7 AMB Questionnaire ABDIRIZAK-7 Date ABDIRIZAK - 7 assessed: 07/01/23 Feeling nervous, anxious, or on edge: 0 = Not at all Not being able to stop or control worryin = Not at all Worrying too much about different things: 0 = Not at all Trouble relaxin = Not at all Being so restless that it is hard to sit still: 0 = Not at all Becoming easily annoyed or irritable: 0 = Not at all Feeling afraid as if something awful might happen: 0 = Not at all Total ABDIRIZAK-7 score (0-4 normal; 5-9 mild; 10-14 moderate; 15-21 severe): 0 Source: Developed by Drs. Celso Joshi, Mary Jo Jaramillo, Tu Powell and colleagues, with an educational brandon from [employer]. Review of Systems Const Denies chills, Reports difficulty sleeping, Reports fatigue, Denies fever(s) and Denies headache(s) ENT Denies dysphagia, Denies dizziness, Denies otalgia, Denies headache(s), Denies neck pain, Denies odynophagia and Denies sore throat Card Denies chest pain, Denies rapid heart rate, Denies irregular heart rhythm, Denies palpitations and Denies dyspnea Resp Denies chest congestion, Denies cough, Denies dyspnea and Denies wheezing GI Denies abdominal pain, Reports bloating, Reports constipation (increasing lately), Denies dysphagia, Denies heartburn, Denies diarrhea, Denies nausea, Denies odynophagia and Denies vomiting Denies nocturia, Denies dysuria and Denies urinary urgency Musc Reports back pain, Reports myalgias (diffuse), Reports arthralgias (over multiple joints, including elbows and wrists; over L knee and thigh), Denies joint swelling, Denies muscle weakness and Denies neck pain Skin/Breast Denies rash Neuro Denies dizziness and Denies headache(s) Psych Denies anxiety and Reports depression Endo Reports fatigue and Denies palpitations Jesus/Lymph Denies easy bruising Aller/Immun Denies wheezing Physical exam (Primary Care) Vital Signs: Last Vital Signs Pulse 63 07/01/23 16:37 BP 110/78 07/01/23 16:37 Pulse Ox 97 07/01/23 16:37 Oxygen Delivery Method Room Air 07/01/23 16:37 BMI result Body Mass Index 38.3 Tobacco/Smoking Status: Tobacco use Status Tobacco use date assessed 07/01/23 07/01/23 16:43 Patient Tobacco Use Status Never used Tobacco 07/01/23 16:43 e-Cigarette/Vaping Use Never Used 07/01/23 16:43 PHQ-9: PHQ-9 Score PHQ-9: Total score 4 07/01/23 17:07 Depression Screening Interpretation: Positive Depression Screening Follow-up: Existing condition and In treatment Thrive Assessment: Date of Thrive Assessment Date Thrive assessed 07/01/23 07/01/23 16:43 Currently or been in a relationship where the following occur: no concerns reported Const General: no acute distress and alert HENMT Ears: TM's normal bilaterally and EAC's normal Throat: Yes posterior oropharynx normal and Yes tonsils normal (no TP conges tion) Neck Neck: Yes no lymphadenopathy and Yes supple Resp Auscultation: clear to auscultation bilaterally, no rales and no wheezes Cardio Rate: regular rate Rhythm: regular rhythm Heart sounds: no murmurs GI Palpation (GI): Soft to palpation and nontender Auscultation: normal bowel sounds Back/Spine/Pelvis Cervical Spine: cervical muscular tenderness (bilaterally) and Cervical spine tenderness Thoracic/Lumbar Spine: paraspinal muscle tenderness bilaterally in the upper thoracic and in the mid thoracic and lumbar spinal tenderness (mild) Skin Rashes: no rashes Extrem General: Yes no clubbing, cyanosis or edema Right upper extremity: elbow/forearm Details: tenderness; no swelling Left upper extremity: elbow/forearm Details: tenderness Location: of the lateral epicondyle and of the medial epicondyle; no swelling and wrist ((+) tenderness) Left lower extremity: knee Details: tenderness Location: of the pre-patellar area; no swelling Assessment and Plan Assessment & Plan (1) Arthralgia: Code(s): M25.50 - Pain in unspecified joint Qualifiers: Joint pain location: unspecified Qualified Code(s): M25.50 - Pain in unspecified joint Plan: Will send patient for some labs for further evaluation Per request, will refer her to physical therapy Will also refer to Rheumatology for further evaluation and management (2) Patellofemoral arthritis of left knee: Code(s): M17.12 - Unilateral primary osteoarthritis, left knee Plan: Will refer her to physical therapy Continue Ibuprofen 600 mg Q 6 hours PRN with food (3) Carpal tunnel syndrome of left wrist: Code(s): G56.02 - Carpal tunnel syndrome, left upper limb Plan: This was confirmed on NCV done in November 2022 Orthopedics has recommended surgery but is currently still awaiting approval - states that is arguing that her injuries are not work-related Patient states that she recently requested for a follow-up orthopedics appointment and is considering getting her carpal tunnel surgery done [facility] and not even try to get her surgery through worker's comp anymore (4) Fibromyalgia: Code(s): M79.7 - Fibromyalgia Plan: Advised again that most of her symptoms are consistent with fibromyalgia, which appears to be flaring up again lately She is encouraged again on regular exercise and physical activity to help manage her fibromyalgia symptoms Was tried on Tramadol 50 mg TID PRN, Tizanidine 4 mg TID PRN, Duloxetine 60 mg QD, Amitriptyline 50 mg QD and Savella in the past but patient stopped taking these after a while, either due to side effects or poor response to Tx Will refer her to rheumatology for further evaluation and management (5) Migraine: Code(s): G43.909 - Migraine, unspecified, not intractable, without status migrainosus Qualifiers: Migraine type: without aura Status migrainosus presence: without status migrainosus Intractability: not intractable Qualified Code(s): G43.009 - Migraine without aura, not intractable, without status migrainosus Plan: Patient has failed to respond to trials of all prophylactic Tx, including Topiramate, Amitriptyline and Propranolol; has also failed to repond to symptomatic Tx with Naprosyn, Gabapentin, Lyrica, Emgality and Aimovig States that she was advised that the only treatment option left is Botox injection, which she is being scheduled for Follow up with neurology as scheduled (6) Gastritis: Code(s): K29.70 - Gastritis, unspecified, without bleeding Qualifiers: Gastritis type: unspecified gastritis Chronicity: unspecified Gastritis bleeding: without bleeding Qualified Code(s): K29.70 - Gastritis, unspecified, without bleeding Plan: Dietary restrictions reinforced Continue Omeprazole 20 mg QD (7) Vitamin D deficiency: Code(s): E55.9 - Vitamin D deficiency, unspecified Plan: Continue Vitamin D2 09236 units Q week (8) Constipation: Code(s): K59.00 - Constipation, unspecified Qualifiers: Constipation type: unspecified constipation type Qualified Code(s): K59.00 - Constipation, unspecified Plan: Encouraged increased oral fluids and dietary fiber States that she has started back on her Miralax 17 gm QD recently (9) Insomnia: Code(s): G47.00 - Insomnia, unspecified Qualifiers: Insomnia type: unspecified Qualified Code(s): G47.00 - Insomnia, unspecified Plan: Sleep hygiene reinforced States that her Quetiapine helps with her sleep at night somewhat (10) Anxiety: Code(s): F41.9 - Anxiety disorder, unspecified Plan: Continue Quetiapine 25 mg BID PRN (11) Depression: Code(s): F32.9 - Major depressive disorder, single episode, unspecified Qualifiers: Depression Type: major depressive disorder Major depression recurrence: recurrent Active/Remission status: currently active Major depression episode severity: moderate Qualified Code(s): F33.1 - Major depressive disorder, recurrent, moderate Plan: Continue Quetiapine 25 mg BID Follow up with psychiatry as scheduled (12) Obesity (BMI 30-39.9): Code(s): E66.9 - Obesity, unspecified Plan: Reinforced diet/exercise as tolerated/lose weight Plan Follow up in 4 months Orders: Orders Comprehensive [place]. Panel Fast 07/01/23 E78.00 - Pure hypercholesterolemia, unspecified, M25.50 - Pain in unspecified joint UA CC w/rflx Micro + Cult 07/01/23 M25.50 - Pain in unspecified joint, R30.0 - Dysuria Erythrocyte Sedimentation Rate 07/01/23 M25.50 - Pain in unspecified joint, M79.7 - Fibromyalgia PT Evaluation and Treatment 07/01/23 M17.12 - Unilateral primary osteoarthritis, left knee, M25.50 - Pain in unspecified joint, S76.312A - Strain of muscle, fasc ia and tendon of the posterior muscle group at thigh level, left thigh, initial encounter Complete Blood Count Auto Diff 07/01/23 D64.9 - Anemia, unspecified, M25.50 - Pain in unspecified joint Lipid Panel 07/01/23 E78.00 - Pure hypercholesterolemia, unspecified, M25.50 - Pain in unspecified joint TSH reflex Free T4 07/01/23 E78.00 - Pure hypercholesterolemia, unspecified, M25.50 - Pain in unspecified joint C Reactive Protein 07/01/23 M25.50 - Pain in unspecified joint Referrals Rheumatology Referral M25.50 - Pain in unspecified joint, M79.7 - Fibromyalgia Coding Level of Care Code Est Pt Level 4 (59562) Diagnoses Arthralgia, unspecified joint M25.50 Joint pain location: unspecified Patellofemoral arthritis of left knee M17.12 Carpal tunnel syndrome of left wrist G56.02 Fibromyalgia M79.7 Migraine without aura and without status migrainosus, not intractable G43.009 Migraine type: without aura Status migrainosus presence: without status migrainosus Intractability: not intractable Gastritis without bleeding, unspecified chronicity, unspecified gastritis type K29.70 Gastritis type: unspecified gastritis Chronicity: unspecified Gastritis bleeding: without bleeding Vitamin D deficiency E55.9 Constipation, unspecified constipation type K59.00 Constipation type: unspecified constipation type Insomnia, unspecified type G47.00 Insomnia type: unspecified Anxiety F41.9 Moderate episode of recurrent major depressive disorder F33.1 Depression Type: major depressive disorder Major depression recurrence: recurrent Active/Remission status: currently active Major depression episode severity: moderate Obesity (BMI 30-39.9) E66.9
== END 2023-07-01 17:13 | disposition home or self-care (01) ==
PROVIDERS: PCP Internal Medicine; Visit Provider Internal Medicine
DX: G43.009 Migraine without aura, not intractable, without status migrainosus (principal); M25.50 Pain in unspecified joint; F33.1 Major depressive disorder, recurrent, moderate; K29.70 Gastritis, unspecified, without bleeding; M17.12 Unilateral primary osteoarthritis, left knee; G56.02 Carpal tunnel syndrome, left upper limb; M79.7 Fibromyalgia; E55.9 Vitamin D deficiency, unspecified; G47.00 Insomnia, unspecified; K59.00 Constipation, unspecified; F41.9 Anxiety disorder, unspecified; E66.9 Obesity, unspecified
CPT/HCPCS: 99214

== ENCOUNTER 2023-07-02 08:56 | Outpatient (REF) | payer OTHER, SELFPAY ==
[2023-07-02 14:29] LABS: MANUAL DIFF FLAG NO
[2023-07-02 14:33] LABS: Basophils Percent Auto 0.3 % (0-2); Eosinophils Percent Auto 0.3 % (0-4); Hematocrit 38.6 % (37.0-47.0); Hemoglobin 12.9 g/dl (12.0-16.0); Imm Gran Abs Auto 0.01 X10*3/uL (0.00-0.03); Imm Gran Pct Auto 0.2 % (0.0-0.4); Lymphocytes Absolute Auto 1.5 X10*3/uL (1.2-4.9); Lymphocytes Percent Auto 22.5 % (20-40); Mean Corpuscular HGB Conc 33.4 g/dl (31.0-35.0); Mean Corpuscular Hemoglobin 30.7 pg (27.0-33.0); Mean Corpuscular Volume 91.9 fL (80.0-98.0); Mean Platelet Volume 11.7 fL (9.4-12.3); Monocytes Absolute Auto 0.3 X10*3/uL (0.1-1.2); Monocytes Percent Auto 4.6 % (2-11); Neutrophils Absolute Auto 4.7 x10*3/uL (2.0-8.3); Neutrophils Percent Auto 72.1 % (45-73); Platelet Count 233 X10*3/uL (160-400); White Blood Count 6.5 X10*3/uL (4.8-10.8)
[2023-07-02 14:35] LABS: Appearance Urine Turbid; Color Urine Dark Yellow; Glucose Urine UA Negative (Negative); Leukocyte Esterase Urine Negative (Negative); Nitrite Urine Negative (Negative); PH 5.5 (5.0-9.0); Specific Gravity - Urine >= 1.030 (1.005-1.025); UMIC TRIGGER UACC YES; Urine Blood Trace (Negative); Urine Ketones Negative (Negative); Urine Protein Negative (Neg-Trace)
[2023-07-02 14:40] LABS: Bacteria Urine 1+ (None Seen); Hyaline Casts Urine 0-2 /LPF (0-2); UACC Culture Trigger YES
[2023-07-02 14:54] LABS: Alanine Aminotransferase 20 U/L (0-31); Alkaline Phosphatase 66 U/L (39-117); Anion Gap 11 (12-20); Aspartate Amino Transferase 15 U/L (5-31); Bilirubin Total 0.5 mg/dL (0.0-1.0); Blood Urea Nitrogen 13 mg/dL (9-16); C Reactive Protein < 0.10 mg/dL (< or = 0.50); Calcium 8.7 mg/dL (8.4-10.2); Carbon Dioxide 26 mmol/L (22-29); Chloride 108 mmol/L (96-108); Cholesterol 177 mg/dL (<200); Estimated Glomerular Filt Rate > 60; Glucose Fasting 94 mg/dL (60-99); HDL Cholesterol 53 mg/dL (>40); LDL Cholesterol Calculated 113 mg/dL (<100); Magnesium 1.9 mg/dL (1.6-2.6); Potassium 3.7 mmol/L (3.3-5.1); Sodium 141 mmol/L (135-145); Triglycerides 55 mg/dL (<150)
[2023-07-02 15:00] LABS: Uric Acid 4.6 mg/dL (2.4-5.7)
[2023-07-02 15:13] LABS: TSH reflex Free T4 1.13 uIU/mL (0.32-4.0)
[2023-07-02 15:22] LABS: Folate 4.1 ng/mL (> or = 4.0); Vitamin B12 330 pg/mL (200-900)
[2023-07-02 15:28] LABS: Erythrocyte Sedimentation Rate 7 MM/HR (0-20)
== END 2023-07-02 08:57 | disposition home or self-care (01) ==
LOC: HO.CHCLDS 08:56
PROVIDERS: Visit Provider Internal Medicine
DX: E78.00 Pure hypercholesterolemia, unspecified (principal); M79.7 Fibromyalgia; D64.9 Anemia, unspecified; E83.42 Hypomagnesemia; R53.1 Weakness; M25.562 Pain in left knee
CPT/HCPCS: 36415; 80053; 80061; 81001; 82607; 82746; 83735; 84443; 84550; 85025; 85652; 86140; 87086

== ENCOUNTER 2023-07-16 16:04 | Outpatient (REF) | payer OTHER, SELFPAY ==
--- NOTE | ~2023-07-16 | US_ITS ---
EXAMINATION: US PELVIS CLINICAL INFORMATION: Displacement of the IUD. COMPARISON: None available. TECHNIQUE: Ultrasound of the pelvis is performed using both transabdominal and transvaginal transducers along with Doppler. Transvaginal imaging is performed due to inadequate visualization transabdominally. FINDINGS: Uterus: The uterus is anteverted and measures 10.6 x 4.4 x 5.0 cm. The double wall endometrial thickness could not be measured as an IUD is present in good position.. The uterus is smooth in contour and has normal myometrial echogenicity. No visible fibroid. Adnexa: The left ovary could not be visualized. There is normal color flow to the right adnexa without evidence of ovarian torsion. There is no pelvic ascites or fluid collection. Right ovary measures 2.2 x 1.8 x 2.0 cm for a volume of 4.1 mL and contains subcentimeter cysts. US/US pelvic and transvaginal IMPRESSION: IUD is in good position.
== END 2023-07-16 16:05 | disposition home or self-care (01) ==
LOC: HO.US 16:04
PROVIDERS: PCP Internal Medicine; Visit Provider Advanced Practice Midwife
DX: T83.32XA Displacement of intrauterine contraceptive device, initial encounter (principal)
CPT/HCPCS: 76830; 76856

== ENCOUNTER 2023-08-07 15:19 | Outpatient (AMB) | payer OTHER, SELFPAY ==
[2023-08-07 15:36] VITALS: BP 122/74; BMI 38.1
--- NOTE | 2023-08-07 15:36 | A.OFFVIS_ITS ---
Intake Vital Signs 08/07/23 15:36 Height 5 ft 6 in Weight 235 lb 14.314 oz BMI 38.1 BP 122/74 Intake Visit Reasons: Ultrasound follow up Newspaper [employer] Required: No Information Interpreted: non-clinical & clinical Healthcare Network Pricing Consultant: Healthcare Network Pricing Consultant Present Accompanied by: Self / Same As Patient Allergies cashew nut Allergy (Severe, Verified 08/07/23 15:42) ANAPHYLAXIS cat dander Allergy (Severe, Verified 08/07/23 15:42) ITCHY SWELLING pregabalin [From Lyrica] Allergy (Severe, Verified 08/07/23 15:42) headaches,lower facial/chin swelling gabapentin Allergy (Intermediate, Verified 08/07/23 15:42) confusion, nausea house dust Allergy (Intermediate, Verified 08/07/23 15:42) Unknown Is last menstrual period known: Yes HPI HPI Comments History of Present Illness Details Patient is here today for a follow up ultrasound IUD surveillance, she reports some pelvic pain comes and goes. Recently treated at our last visit for bacterial vaginosis. She is also seeing specialist for her fibromyalgia and having evaluations to determine why is having so much pain throughout her body. [facility] Medical History Obesity, Class III, BMI 40-49.9 (morbid obesity) IUD (intrauterine device) in place Morbid obesity with BMI of 45.0-49.9, adult Urge incontinence Insomnia GERD without esophagitis Peripheral neuropathy Depression Anxiety Migraine Fibromyalgia Vitamin D deficiency Constipation Bilateral hand pain Surgical History H/O bilateral breast reduction surgery (~06/2012) History of section History of tubal ligation Family History Father No problems noted. Mother No problems noted. 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 Cognitive needs: No Hearing needs: No Vision needs: Yes Female Reproductive History Menstrual Age of Menarche: 13 Review of Systems Const All systems reviewed & are unremarkable except as noted in HPI and below Reports as per HPI Eyes Reports no additional complaints ENT Reports no additional complaints Card Reports no additional complaints Resp Reports no additional complaints GI Reports as per HPI and Reports no additional complaints Reports as per HPI Musc Reports no additional complaints Skin/Breast Reports as per HPI Neuro Reports no additional complaints Psych Reports no additional complaints Endo Reports no additional complaints Jesus/Lymph Reports no additional complaints Aller/Immun Reports no additional complaints Physical Exam Vital Signs: Last Vital Signs BP 122/74 08/07/23 15:36 BMI result Body Mass Index 38.1 Const General: cooperative, healthy appearing, no acute distress, well developed and alert Psych Appearance: well kempt Attitude: cooperative Thought process: Normal thought process present Assessment & Plan Assessment & Plan (1) Encounter for well woman exam with routine gynecological exam: Code(s): Z01.419 - Encounter for gynecological examination (general) (routine) without abnormal findings (2) Encounter to discuss test results: Code(s): Z71.2 - Person consulting for explanation of examination or test findings Plan Discussed: Ultrasound findings the IUD is in proper position. She has a follow up for her annual in 2024. All questions answered the best of my ability. Advised if any increase in pain or changes to report back to the office. This note is constructed using voice recognition software. While every effort has been made to ensure accuracy, outboard motorboat rigger errors may have been included. Coding Level of Care Code Est Pt Level 3 (01860) Diagnoses Encounter for well woman exam with routine gynecological exam Z01.419 Encounter to discuss test results Z71.2
== END 2023-08-07 16:01 | disposition home or self-care (01) ==
LOC: HO.HWS 15:19
PROVIDERS: PCP Internal Medicine; Visit Provider Advanced Practice Midwife
DX: R10.2 Pelvic and perineal pain (principal); Z71.2 Person consulting for explanation of examination or test findings
CPT/HCPCS: 99213

== ENCOUNTER → 2023-08-07 15:19 | Outpatient (BNVA) | payer OTHER, SELFPAY | PROVIDERS: PCP Internal Medicine; Visit Provider Advanced Practice Midwife | DX: Z01.419 Encounter for gynecological examination (general) (routine) without abnormal findings (principal); R10.9 Unspecified abdominal pain; Z71.2 Person consulting for explanation of examination or test findings | CPT/HCPCS: 99212 ==

== ENCOUNTER 2023-08-10 12:16 | Outpatient (AMB) | payer OTHER, SELFPAY ==
[2023-08-10 12:35] VITALS: BP 112/68; PULSE 89; TEMP 36.3; O2SAT 96; BMI 39.7
--- NOTE | 2023-08-10 12:35 | AM.OFFWIN_ITS ---
Intake Vital Signs 08/10/23 12:35 Height 5 ft 6 in Weight 246 lb BMI 39.7 BP 112/68 Blood Pressure Location Lt brachial Position Sitting Pulse 89 Pulse Source Pulse Oximeter Temp 97.4 F Temp Source Temporal Artery Scan Pulse Oximetry (%) 96 Oxygen Delivery Method Room Air Intake Visit Reasons: EP Back pain Intake Note: pt is here today for back pain started today Patient Tobacco Use Status: Never used Tobacco Allergies cashew nut Allergy (Severe, Verified 08/10/23 12:39) ANAPHYLAXIS cat dander Allergy (Severe, Verified 08/10/23 12:39) ITCHY SWELLING pregabalin [From Lyrica] Allergy (Severe, Verified 08/10/23 12:39) headaches,lower facial/chin swelling gabapentin Allergy (Intermediate, Verified 08/10/23 12:39) confusion, nausea house dust Allergy (Intermediate, Verified 08/10/23 12:39) Unknown Do you need a note to return to daycare/school/sports/work: No HPI HPI Comments History of Present Illness Details 38 y/o male patient who presents to walk in clinic with c/o lower midline back pain that started yesterday. Reports that she was making her son's Bed when she thinks might have pulled a muscle. Pain with moving air in/out. Pain with any back movement. Denies urinary or bowel problems. Denies numbness or tingling. [facility] Medical History Obesity, Class III, BMI 40-49.9 (morbid obesity) IUD (intrauterine device) in place Morbid obesity with BMI of 45.0-49.9, adult Urge incontinence Insomnia GERD without esophagitis Peripheral neuropathy Depression Anxiety Migraine Fibromyalgia Vitamin D deficiency Constipation Bilateral hand pain Surgical History H/O bilateral breast reduction surgery (~06/2012) History of section History of tubal ligation Family History Father No problems noted. Mother No problems noted. 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 Cognitive needs: No Hearing needs: No Vision needs: Yes Female Reproductive History Menstrual Age of Menarche: 13 Review of Systems Const All systems reviewed & are unremarkable except as noted in HPI and below Physical Exam Vital Signs: Last Vital Signs Temp 97.4 F 08/10/23 12:35 Pulse 89 08/10/23 12:35 BP 112/68 08/10/23 12:35 Pulse Ox 96 08/10/23 12:35 Oxygen Delivery Method Room Air 08/10/23 12:35 BMI result Body Mass Index 39.7 Const General: no acute distress; No comfortable Orientation/consciousness: patient oriented x3 General: Yes no CVA tenderness Back/Spine/Pelvis Back: no CVA tenderness and back tenderness Thoracic/Lumbar Spine: thoraco-lumbar spasm bilaterally, thoracic spinal tenderness at T11 and at T12 and lumbar spinal tenderness at L3 and at L4 Neuro General: patient oriented x3, gait normal and moves all extremities Psych Speech and movement: Normal speech and movement present Assessment & Plan Assessment & Plan (1) Lower back pain: Code(s): M54.50 - Low back pain, unspecified Qualifiers: Chronicity: acute Back pain laterality: midline Sciatica presence: without sciatica Qualified Code(s): M54.50 - Low back pain, unspecified Plan: - Take medicine as directed - Ice Hot - Ibuprofen or Acetaminophen for pain relief. Medications: New metaxalone 800 mg (2 x 400 mg) PO TID PRN 30 tabs 0RF muscle pain M54.50 - Low back pain, unspecified lidocaine 5% leave on most painful area for up to 12 hrs 1 patch topical DAILY 30 ea 0RF M54.50 - Low back pain, unspecified Coding Level of Care Code Est Pt Level 3 (21267) Diagnoses Acute midline low back pain without sciatica M54.50 Chronicity: acute Back pain laterality: midline Sciatica presence: without sciatica Time Spent (min) 15
== END 2023-08-10 13:17 | disposition home or self-care (01) ==
PROVIDERS: PCP Internal Medicine; Visit Provider Nurse Practitioner Family
DX: M54.50 Low back pain, unspecified (principal)
CPT/HCPCS: 99213

== ENCOUNTER 2023-08-11 15:40 | Outpatient (AMB) | payer OTHER, SELFPAY ==
--- NOTE | 2023-08-11 15:40 | A.OFFVIS_ITS ---
Intake Vital Signs 08/11/23 15:48 Height 5 ft 6 in Weight 247 lb 12.793 oz BMI 40.0 BP 110/82 Blood Pressure Location Rt brachial Position Sitting Pulse 76 Pulse Source Palpation Intake Visit Reasons: Pain in unspecified joint/CM Intake Note: New patient, internally referred, presents to office today for joint pain. 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 She has a past medical history of migraines, anxiety, depression, peripheral neuropathy, GERD, insomnia, fibromyalgia, constipation, and carpal tunnel syndrome. She had taken gabapentin but had facial numbness and headache. She denies redness swelling and warmth to her joints. --Mom has psoriasis and possible Raynaud 's --negative rheumatoid factor and CCP --knee injury 06/2022 --lidocaine patch for lower back pain --denies signs and symptoms of CTD --Ibuprofen 600 mg q.6 hours PRN, Metaxa lone 800 mg p.o. t.i.d., Lidocaine 5% 1 patch daily PFSH Medical History Pain in joint involving multiple sites Myalgia Obesity, Class III, BMI 40-49.9 (morbid obesity) IUD (intrauterine device) in place Morbid obesity with BMI of 45.0-49.9, adult Urge incontinence Insomnia GERD without esophagitis Peripheral neuropathy Depression Anxiety Migraine Fibromyalgia Vitamin D deficiency Constipation Bilateral hand pain Surgical History H/O bilateral breast reduction surgery (~06/2012) History of section History of tubal ligation Family History Father No problems noted. Mother No problems noted. 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 External ear normal. NOSE/SINUS:? Airflow through both nares, no nasal discharge, no bleeding THROAT:? Oral mucosa moist, no ulcerations NECK:? No thyromegaly or masses, no adenopathy, trachea midline. HEART:? Regular rhythm, S1-S2 heard, no murmurs, rubs or gallops. LUNG:? Clear to percussion and auscultation EXTREMITIES:? No edema, no calf tenderness, normal peripheral pulses. NEURO:? Oriented and alert x3.? No focal weakness.? Reflexes symmetric.? Gait normal. SKIN:? There are no skin lesions evident. No objective signs of Raynaud's phenomenon. JOINT EXAM: Cervical Spine:.? Full range of motion without pain; no tenderness. Thoracic Spine:.? No scoliosis.? No tenderness on palpation. Lumbar Spine:.? Alignment normal.? Full range of motion without pain, no tenderness. Chest Wall:.? No tenderness, swelling, increased warmth or erythema. Hands:.? Normal pain-free range of motion without tenderness, swelling, increased warmth or erythema. 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 Wrists:.? Normal pain-free range of motion without tenderness, swelling, increased warmth or erythema. Elbows:. Normal pain-free range of motion without tenderness, swelling, increased warmth or erythema. Shoulders:.?? Full range of motion without pain. No tenderness, weakness, swelling, increased warmth or erythema. Hips:.? Full range of motion without pain. Hip bursa:.? No tenderness. Knees:.?? Normal pain-free range of motion without tenderness, swelling, increased warmth or erythema.? There is no effusion or crepitation Ankles:.? Normal pain-free range of motion without tenderness, swelling, increased warmth or erythema. Feet:.? Normal pain-free range of motion without tenderness, swelling, increased warmth or erythema. Tender points:? No tenderness to digital palpation at the occiput, trapezius, second rib, lateral epicondyle, knees, greater trochanter and gluteal area bilaterally. Assessment & Plan Assessment & Plan (1) Pain in joint involving multiple sites: Code(s): M25.50 - Pain in unspecified joint (2) Myalgia: Code(s): M79.10 - Myalgia, unspecified site Plan The patient presents with arthralgia and carpal tunnel syndrome history. I do not see a clinical picture for an autoimmune arthritis or CTD process. Nonetheless I will do further evaluation with a rheumatology panel. She does have fibromyalgia and should continue to use the medication she has been prescribed. I will give her a course of prednisone and reassess in 4 weeks if it has been effective for her joint pain. She had no swelling or tenderness to her small joints on PE. I spent 45 minutes evaluating patient reviewing history and documenting Follow-up in 4 weeks Orders: Orders Comprehensive Met. Panel 08/12/23 M25.50 - Pain in unspecified joint, M79.10 - Myalgia, unspecified site C Reactive Protein 08/12/23 M25.50 - Pain in unspecified joint, M79.10 - Myalgia, unspecified site Creatine Kinase Total 08/12/23 M25.50 - Pain in unspecified joint, M79.10 - Myalgia, unspecified site Complete Blood Count Auto Diff 08/12/23 M25.50 - Pain in unspecified joint, M 79.10 - Myalgia, unspecified site Complement C3 08/12/23 M25.50 - Pain in unspecified joint, M79.10 - Myalgia, unspecified site Anti DNA DS Antibody 08/12/23 M25.50 - Pain in unspecified joint, M79.10 - Myalgia, unspecified site Anti Extractable Nuclear Ag 08/12/23 M25.50 - Pain in unspecified joint, M79.10 - Myalgia, unspecified site Anti-Centromere B Antibodies 08/12/23 M25.50 - Pain in unspecified joint, M79.10 - Myalgia, unspecified site Immunoglobulins,IgG IgA IgM 08/12/23 M25.50 - Pain in unspecified joint, M79.10 - Myalgia, unspecified site Sjogren's Antibodies 08/12/23 M25.50 - Pain in unspecified joint, M79.10 - Myalgia, unspecified site Scleroderma 70 Antibody 08/12/23 M25.50 - Pain in unspecified joint, M79.10 - Myalgia, unspecified site Uric Acid 08/12/23 M25.50 - Pain in unspecified joint, M79.10 - Myalgia, unspecified site Complement C4 08/12/23 M25.50 - Pain in unspecified joint, M79.10 - Myalgia, unspecified site ERVIN Reflex Titer and Pattern 08/12/23 M25.50 - Pain in unspecified joint, M79.10 - Myalgia, unspecified site Erythrocyte Sedimentation Rate 08/12/23 M25.50 - Pain in unspecified joint, M79.10 - Myalgia, unspecified site Immunofixation Pnl, Serum 08/12/23 M25.50 - Pain in unspecified joint, M79.10 - Myalgia, unspecified site Protein Electrophoresis, Serum 08/12/23 M25.50 - Pain in unspecified joint, M79.10 - Myalgia, unspecified site Other Ref Test - Misc 08/12/23 M79.10 - Myalgia, unspecified site, M25.50 - Pain in unspecified joint Coding Level of Care Code New Pt Level 3 (46318) Diagnoses Pain in joint involving multiple sites M25.50 Myalgia M79.10
[2023-08-11 15:48] VITALS: BP 110/82; PULSE 76; BMI 40.0
== END 2023-08-11 16:24 | disposition home or self-care (01) ==
PROVIDERS: PCP Internal Medicine; Visit Provider Nurse Practitioner Family
DX: M25.50 Pain in unspecified joint (principal); M79.10 Myalgia, unspecified site
CPT/HCPCS: 99203

== ENCOUNTER → 2023-08-11 15:40 | Outpatient (BNVA) | payer OTHER, SELFPAY | PROVIDERS: PCP Internal Medicine; Visit Provider Nurse Practitioner Family | DX: M25.50 Pain in unspecified joint (principal); M79.10 Myalgia, unspecified site | CPT/HCPCS: 99202 ==

== ENCOUNTER 2023-08-12 09:23 | Outpatient (REF) | payer OTHER, SELFPAY ==
[2023-08-12 14:15] LABS: MANUAL DIFF FLAG NO
[2023-08-12 14:17] LABS: Basophils Percent Auto 0.3 % (0-2); Eosinophils Percent Auto 0.5 % (0-4); Hematocrit 38.7 % (37.0-47.0); Hemoglobin 12.9 g/dl (12.0-16.0); Imm Gran Abs Auto 0.02 X10*3/uL (0.00-0.03); Imm Gran Pct Auto 0.3 % (0.0-0.4); Lymphocytes Absolute Auto 1.7 X10*3/uL (1.2-4.9); Lymphocytes Percent Auto 26.9 % (20-40); Mean Corpuscular HGB Conc 33.3 g/dl (31.0-35.0); Mean Corpuscular Hemoglobin 30.6 pg (27.0-33.0); Mean Corpuscular Volume 91.9 fL (80.0-98.0); Monocytes Absolute Auto 0.3 X10*3/uL (0.1-1.2); Monocytes Percent Auto 4.9 % (2-11); Neutrophils Absolute Auto 4.3 x10*3/uL (2.0-8.3); Neutrophils Percent Auto 67.1 % (45-73); Platelet Count 224 X10*3/uL (160-400); Red Blood Count 4.21 X10*6/uL (4.20-5.50); Red Cell Distribution Width 13.3 % (11.0-16.0); White Blood Count 6.3 X10*3/uL (4.8-10.8)
[2023-08-12 14:40] LABS: Uric Acid 4.2 mg/dL (2.4-5.7)
[2023-08-12 14:51] LABS: Alanine Aminotransferase 26 U/L (0-31); Albumin Level 4.1 g/dL (3.5-5.0); Alkaline Phosphatase 58 U/L (39-117); Anion Gap 9 (12-20); Aspartate Amino Transferase 18 U/L (5-31); Bilirubin Total 0.5 mg/dL (0.0-1.0); Blood Urea Nitrogen 17 mg/dL (9-16); C Reactive Protein < 0.10 mg/dL (< or = 0.50); Calcium 8.9 mg/dL (8.4-10.2); Carbon Dioxide 25 mmol/L (22-29); Chloride 110 mmol/L (96-108); Estimated Glomerular Filt Rate > 60; Glucose Random 98 mg/dL (60-115); Sodium 140 mmol/L (135-145); Total Protein 7.3 g/dL (6.5-8.0)
[2023-08-12 14:54] LABS: Erythrocyte Sedimentation Rate 11 MM/HR (0-20)
[2023-08-13 11:09] LABS: Prot Elec - Albumin 4.3 g/dL (3.8-4.8); Prot Elec - Alpha1 0.3 g/dL (0.2-0.3); Prot Elec - Alpha2 0.7 g/dL (0.5-0.9); Prot Elec - Beta 1 0.5 g/dL (0.4-0.6); Prot Elec - Beta 2 0.5 g/dL (0.2-0.5); Prot Elec - Gamma 1.3 g/dL (0.8-1.7); Prot Elec - Total Protein 7.5 g/dL (6.1-8.1)
[2023-08-13 11:43] LABS: Complement C3 112 mg/dL (83-193)
[2023-08-13 13:19] LABS: Anti-Centromere B Antibodies <1.0 NEG AI (<1.0 NEG)
[2023-08-13 15:43] LABS: Anti Nuclear Antibody Screen NEGATIVE (NEGATIVE)
[2023-08-13 17:02] LABS: IgA 255 mg/dL (47-310); IgG 1471 mg/dL (600-1640); IgM 112 mg/dL (50-300)
[2023-08-13 19:14] LABS: Anti DNA DS Antibody <1 IU/mL; Antibody to SS-A Antigen <1.0 NEG AI (<1.0 NEG); Antibody to SS-B Antigen <1.0 NEG AI (<1.0 NEG); SM/Ribonucleoprotein Ab <1.0 NEG AI (<1.0 NEG); Scleroderma 70 Antibody <1.0 NEG AI (<1.0 NEG); Smith Protein <1.0 NEG AI (<1.0 NEG)
[2023-08-14 11:34] LABS: IgA 246 mg/dL (47-310); IgG 1431 mg/dL (600-1640); IgM 111 mg/dL (50-300)
== END 2023-08-12 09:24 | disposition home or self-care (01) ==
LOC: HO.CHCLDS 09:23
PROVIDERS: Visit Provider Nurse Practitioner Family
DX: M25.50 Pain in unspecified joint (principal); M79.10 Myalgia, unspecified site
CPT/HCPCS: 36415; 80053; 82550; 82784; 84165; 84182; 84550; 85025; 85652; 86038; 86140; 86160; 86225; 86235; 86334

== ENCOUNTER 2023-08-13 22:32 | Emergency (ER) | payer OTHER, SELFPAY ==
[2023-08-13 22:41] VITALS: BP 131/87; PULSE 96; RESP 18; TEMP 36.8; O2SAT 96; BMI 39.7
[2023-08-13 22:57] LABS: Basophils Percent Auto 0.3 % (0-2); Eosinophils Percent Auto 0.4 % (0-4); Hematocrit 37.6 % (37.0-47.0); Hemoglobin 12.7 g/dl (12.0-16.0); Imm Gran Abs Auto 0.03 X10*3/uL (0.00-0.03); Imm Gran Pct Auto 0.3 % (0.0-0.4); Lymphocytes Absolute Auto 1.9 X10*3/uL (1.2-4.9); Lymphocytes Percent Auto 19.1 % (20-40); MANUAL DIFF FLAG NO; Mean Corpuscular HGB Conc 33.8 g/dl (31.0-35.0); Mean Corpuscular Hemoglobin 30.6 pg (27.0-33.0); Mean Corpuscular Volume 90.6 fL (80.0-98.0); Monocytes Absolute Auto 0.5 X10*3/uL (0.1-1.2); Monocytes Percent Auto 5.3 % (2-11); Neutrophils Absolute Auto 7.3 x10*3/uL (2.0-8.3); Neutrophils Percent Auto 74.6 % (45-73); Platelet Count 210 X10*3/uL (160-400); Red Blood Count 4.15 X10*6/uL (4.20-5.50); White Blood Count 9.7 X10*3/uL (4.8-10.8)
[2023-08-13 23:11] LABS: Alanine Aminotransferase 25 U/L (0-31); Albumin Level 4.2 g/dL (3.5-5.0); Alkaline Phosphatase 61 U/L (39-117); Anion Gap 11 (12-20); Aspartate Amino Transferase 17 U/L (5-31); Bilirubin Total 0.6 mg/dL (0.0-1.0); Blood Urea Nitrogen 15 mg/dL (9-16); Calcium 9.2 mg/dL (8.4-10.2); Carbon Dioxide 27 mmol/L (22-29); Chloride 109 mmol/L (96-108); Creatinine Clr Calc Pharmacy 130.5; Estimated Glomerular Filt Rate > 60; Glucose Random 103 mg/dL (60-115); Lipase 19 U/L (8-78); Potassium 3.5 mmol/L (3.3-5.1); Sodium 143 mmol/L (135-145); Total Protein 7.5 g/dL (6.5-8.0)
--- NOTE | 2023-08-14 00:44 | ED_ITS ---
HPI - Headache General Chief Complaint: Headache Stated Complaint: migraine Time Seen by Provider: 08/14/23 00:44 Source: patient Mode of arrival: ambulatory Limitations: no limitations History of Present Illness MD elicited complaint: headache and migraine Pertinent past history: migraines Onset (ago): hour(s) Time: 16:30 Onset description: gradually Location: right and temporal Severity: moderate Pain scale (0-10): 10 Quality & Timing: sharp and constant Exacerbating factors: light and noise Relieving factors: nothing Context: occurred at rest Associated symptoms: nausea, vomiting and photophobia Treatments prior to arrival: none Related Data Home Medications ?Medication ?Instructions ?Recorded ?Confirmed epinephrine 0.3 mg/0.3 mL IM DIRECTED anaphylaxis 01/16/22 07/02/23 injection, auto-injector Previous Rx's ?Medication ?Instructions ?Recorded ibuprofen 600 mg tablet 600 mg PO Q6H PRN pain #60 tabs 07/18/20 ergocalciferol (vitamin D2) 1,250 1,250 mcg PO QWEEK 90 days #13 caps 01/20/22 mcg (50,000 unit) capsule polyethylene glycol 3350 17 17 g PO DAILY 30 days #510 grams 03/03/23 gram/dose oral powder acetaminophen 500 mg tablet 500 mg PO QID PRN pain #30 tabs 04/15/23 (Tylenol Extra Strength) omeprazole 20 mg capsule,delayed 20 mg PO DAILY 30 days #30 caps 06/01/23 release lidocaine 5 % topical patch 1 patch topical DAILY #30 ea 08/10/23 metaxalone 400 mg tablet 800 mg (2 x 400 mg) PO TID #20 tabs 08/10/23 prednisone 5 mg tablet See Rx Instructions PO DAILY #45 08/12/23 tabs [id number]-[id number] 1 tab PO Q6H PRN haeadace #20 tabs 08/14/23 50 mg-325 mg-40 mg tablet ondansetron 4 mg disintegrating 4 mg PO Q6-8H PRN nausea and 08/14/23 tablet vomiting #14 tabs sumatriptan succinate 50 mg tablet 50 mg PO Q2H PRN migraine headache 08/14/23 (Imitrex) #10 tabs Allergies Allergy/AdvReac Type Severity Reaction Status Date / Time cashew nut Allergy Severe ANAPHYLAXIS Verified 08/13/23 22:42 cat dander Allergy Severe ITCHY Verified 08/13/23 22:42 SWELLING pregabalin [From Lyrica] Allergy Severe headaches,lower Verified 08/13/23 22:42 facial/chin swelling gabapentin Allergy Intermediate confusion, Verified 08/13/23 22:42 nausea house dust Allergy Intermediate Unknown Verified 08/13/23 22:42 Review of Systems 2 Review of Systems: Yes all other systems are reviewed and are negative PMFSH Past Medical History Medical History Pain in joint involving multiple sites Myalgia Obesity, Class III, BMI 40-49.9 (morbid obesity) IUD (intrauterine device) in place Morbid obesity with BMI of 45.0-49.9, adult Urge incontinence Insomnia GERD without esophagitis Peripheral neuropathy Depression Anxiety Migraine Fibromyalgia Vitamin D deficiency Constipation Bilateral hand pain Surgical History H/O bilateral breast reduction surgery (~06/2012) History of section History of tubal ligation Family History Family History Father No problems noted. Mother No problems noted. 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 Oriented X3. In moderate distress light sensitive Eyes: PERRLA, No Nystagmus ENT: Pharynx normal. Oral Mucosa moist no temporal artery tenderness Neck: Normal inspection. Neck supple. CVS: Normal heart rate and rhythm. Pulses normal. Respiratory: No respiratory distress. Equal air entry bilateral, no wheezing/rales/rhonchi Abdomen: Soft and nontender. Bowel sounds are present, no mass palpable, no CVA tenderness Skin: Skin warm and dry. Normal skin color. Normal skin turgor. Extremities: No lower extremity edema. No calf tenderness Neuro: Oriented X 3. No motor deficit. No sensory deficit.No cerebellar signs , cranial nerves II-XII intact Medications Administered Discontinued Medications Generic Name Dose Route Start Last Admin Trade Name Freq PRN Reason Stop Dose Admin Acetaminophen/Butalbital/Caffeine 1 tab 08/14/23 00:46 08/14/23 01:11 Butalb/Acetamin/Caff 50/325/40 Tablet PO 08/14/23 00:47 1 tab ONCE ONE Administration Ondansetron HCl 4 mg 08/14/23 00:46 08/14/23 01:10 Ondansetron Odt 4 Mg Tab.Rapdis TRANSLINGU 08/14/23 00:47 4 mg ONCE ONE Administration Sumatriptan Succinate 6 mg 08/14/23 00:46 08/14/23 01:10 Sumatriptan Succinate 6 Mg/0.5 Ml Vial SUBCUT 08/14/23 00:47 6 mg ONCE ONE Administration Medical Decision Making Medical Decision Making [facility] Narrative: Patient with migraine headache , usual headache no thunderclap headache felt better after Imitrex will discharge patient Differential Diagnosis Differential Diagnoses: The differential diagnosis associated with the presentation includes Migraine headache/tension headache/SAH Lab Data [facility] Lab Attestation statement: I reviewed the patient's lab results. 08/13/23 22:50 08/13/23 22:50 Labs: Lab Results 08/13/23 Range/Units 22:50 WBC 9.7 (4.8-10.8) X10*3/uL RBC 4.15 L (4.20-5.50) X10*6/uL Hgb 12.7 (12.0-16.0) g/dl Hct 37.6 (37.0-47.0) % MCV 90.6 (80.0-98.0) fL MCH 30.6 (27.0-33.0) pg MCHC 33.8 (31.0-35.0) g/dl RDW 13.0 (11.0-16.0) % Plt Count 210 (160-400) X10*3/uL MPV 11.0 (9.4-12.3) fL Immature Gran % (Auto) 0.3 (0.0-0.4) % Neut % (Auto) 74.6 H (45-73) % Lymph % (Auto) 19.1 L (20-40) % [place] % (Auto) 5.3 (2-11) % Eos % (Auto) 0.4 (0-4) % Baso % (Auto) 0.3 (0-2) % Lymph # (Auto) 1.9 (1.2-4.9) X10*3/uL [place] # (Auto) 0.5 (0.1-1.2) X10*3/uL Eos # (Auto) 0.0 (0.0-0.4) X10*3/uL Baso # (Auto) 0.0 (0.0-0.2) X10*3/uL Abs Immat Gran (auto) 0.03 (0.00-0.03) X10*3/uL Absolute Neuts (auto) 7.3 (2.0-8.3) x10*3/uL Absolute Nucleated RBC 0.000 (0.0-0.012) X10*3/uL Nucleated RBC % (auto) 0.0 (0.0-0.2) /100WBC Sodium 143 (135-145) mmol/L Potassium 3.5 (3.3-5.1) mmol/L Chloride 109 H (96-108) mmol/L Carbon Dioxide 27 (22-29) mmol/L Anion Gap 11 L (12-20) BUN 15 (9-16) mg/dL Creatinine 0.74 (0.5-1.4) mg/dL Estim Creat Clear Calc 130.5 Estimated GFR > 60 Random Glucose 103 (60-115) mg/dL Calcium 9.2 (8.4-10.2) mg/dL Total Bilirubin 0.6 (0.0-1.0) mg/dL AST 17 (5-31) U/L ALT 25 (0-31) U/L Alkaline Phosphatase 61 (39-117) U/L Total Protein 7.5 (6.5-8.0) g/dL Albumin 4.2 (3.5-5.0) g/dL Lipase 19 (8-78) U/L Discharge Plan Discharge Clinical Impression: Migraine Patient Disposition: Home, Self-Care Instructions: Migraine Headache (ED) Additional Instructions: Take medication for migraine as prescribed Follow with PCP as needed Prescriptions: New sumatriptan succinate [Imitrex] 50 mg tablet 50 mg PO Q2H PRN (Reason: migraine headache) Qty: 10 0RF Rx Instructions: do not exceed 2 doses per 24 hrs bqhyvrlsnz-janqhipyuojvs-whyf 50-325-40 mg tablet 1 tab PO Q6H PRN (Reason: haeadace) Qty: 20 0RF ondansetron 4 mg tablet,disintegrating 4 mg PO Q6-8H PRN (Reason: nausea and vomiting) Qty: 14 0RF No Action omeprazole 20 mg capsule,delayed release(DR/EC) 20 mg PO DAILY 30 Days Qty: 30 3RF metaxalone 400 mg tablet 800 mg PO TID Qty: 20 0RF prednisone 5 mg tablet See Rx Instructions PO DAILY Qty: 45 0RF Rx Instructions: orally daily 3 tablets per day x 7 days 2 tablets per day x 7 days 1 tablet per day x 7 days ergocalciferol (vitamin D2) 1,250 mcg (50,000 unit) capsule 1,250 mcg PO QWEEK 90 Days Qty: 13 3RF polyethylene glycol 3350 17 gram/dose powder 17 g PO DAILY 30 Days Qty: 510 11RF acetaminophen [Tylenol Extra Strength] 500 mg tablet 500 mg PO QID PRN (Reason: pain) Qty: 30 0RF lidocaine 5 % adhesive patch,medicated 1 patch topical DAILY Qty: 30 0RF Rx Instructions: leave on most painful area for up to 12 hrs ibuprofen 600 mg tablet 600 mg PO Q6H PRN (Reason: pain) Qty: 60 0RF Rx Instructions: take medication 1-3 days of your menses for cramping epinephrine 0.3 mg/0.3 mL auto-injector IM DIRECTED Print Language: Spanish
[2023-08-14] MEDS: SUMAtriptan succinate 6 MG/0.5 ML VIAL SUBCUT (01:10)
[2023-08-14] MEDS: Ondansetron ODT 4 MG TAB.RAPDIS TRANSLINGU (01:10)
[2023-08-14] MEDS: Butalb/Acetamin/Caff 50/325/40 TABLET 1 TAB PO (01:11)
[2023-08-14 01:12] VITALS: BP 124/78; PULSE 75; RESP 16; TEMP 36.9; O2SAT 99
[2023-08-14 02:24] VITALS: BP 124/78; PULSE 75; RESP 16; TEMP 36.9; O2SAT 99
== END 2023-08-14 02:26 | disposition home or self-care (01) ==
PROVIDERS: Emergency Provider Internal Medicine; PCP Internal Medicine
DX: G43.909 Migraine, unspecified, not intractable, without status migrainosus (principal)
CPT/HCPCS: 36415; 80053; 83690; 85025; 96372; 99284; J3030

== ENCOUNTER 2023-08-17 14:54 | Outpatient (AMB) | payer OTHER, SELFPAY ==
--- NOTE | 2023-08-17 15:12 | MHC.OFFVIS ---
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 Accompanied by: Self / Same As Patient Allergies cashew nut Allergy (Severe, Verified 08/17/23 20:20) ANAPHYLAXIS cat dander Allergy (Severe, Verified 08/17/23 20:20) ITCHY SWELLING pregabalin [From Lyrica] Allergy (Severe, Verified 08/17/23 20:20) headaches,lower facial/chin swelling gabapentin Allergy (Intermediate, Verified 08/17/23 20:20) confusion, nausea house dust Allergy (Intermediate, Verified 08/17/23 20:20) Unknown Medication List - Last Reconciled 08/17/23 by CICI Flores-PAZ acetaminophen (Tylenol Extra Strength) 500 mg PO QID PRN hytmrgxgfu-oudeagjunjckh-hcbx 50-325-40 mg 1 tab PO Q6H PRN epinephrine IM DIRECTED ergocalciferol (vitamin D2) 1,250 mcg PO QWEEK 90 days ibuprofen 600 mg PO Q6H PRN lidocaine 5% 1 patch topical DAILY metaxalone 800 mg (2 x 400 mg) PO TID mirabegron ER (Myrbetriq) 25 mg PO DAILY 30 days omeprazole 20 mg PO DAILY 30 days ondansetron 4 mg PO Q6-8H PRN polyethylene glycol 3350 17 grams PO DAILY 30 days prednisone orally daily 3 tablets per day x 7 days 2 tablets per day x 7 days 1 tablet per day x 7 days sumatriptan succinate (Imitrex) 50 mg PO Q2H PRN HPI HPI Comments History of Present Illness Details Arminda is a pleasant 38-year-old female patient of Dr. Vargas. She has a past medical history of migraines, anxiety, depression, peripheral neuropathy, GERD, insomnia, fibromyalgia, constipation, and carpal tunnel syndrome. She presents to the office today for follow-up. Of note, patient was seen approximately 3 months ago at which time she was taken off all her previous urological medications as she did not feel lower urinary tract symptoms were bothersome and wanted to undergo lifestyle modifications with timed/scheduled voiding. In discussion with the patient today she reports feeling timed/scheduled voiding has been helpful in decreasing her episodes of incontinence. However, she does report feeling it is difficult to utilize the bathroom frequently. She reports if she does not urinate every 30 minutes to 1 hour she feels urinary urgency and frequency. She has previously trialed low-dose terazosin for incomplete bladder emptying as well as antibiotic therapy for positive microgen results 10/31 and again 04/02. She has also previously trialed oxybutynin and VESIcare however did not find this helpful. In office urinalysis results reviewed with the patient today. Microscopic hematuria noted. She denies any previous history of nicotine dependence and or workplace chemical exposure. She does report to smoking recreational marijuana occasionally. PVR 30 mL. She currently denies urinary urgency, urinary frequency, incontinence, nocturia, hematuria, dysuria, foul smelling urine,changes to urinary stream, flank pain, fever, and or chills. Previous workup has included a retroperitoneal ultrasound noting bilateral kidneys with no calculi, lesions, or hydronephrosis noted. The bladder is well distended and normal. Bilateral ureteral jets are demonstrated. Prevoid bladder volume is approximately 300 mL. Postvoid bladder volume is approximately 30 mL. Discussed pelvic floor therapy however patient states she will not be able to attend at this time as she is already receiving physical therapy for her left leg after [place]. Discussed near future in office cystoscopy and or urodynamics if symptoms persist and or worsen. She otherwise offers no issues or concerns at this time. [facility] Medical History Pain in joint involving multiple sites Myalgia Obesity, Class III, BMI 40-49.9 (morbid obesity) IUD (intrauterine device) in place Morbid obesity with BMI of 45.0-49.9, adult Urge incontinence Insomnia GERD without esophagitis Peripheral neuropathy Depression Anxiety Migraine Fibromyalgia Vitamin D deficiency Constipation Bilateral hand pain Surgical History H/O bilateral breast reduction surgery (~06/2012) History of section History of tubal ligation Family History Father No problems noted. Mother No problems noted. 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 Cognitive needs: No Hearing needs: No Vision needs: Yes Female Reproductive History Menstrual Age of Menarche: 13 Review of Systems Const Reports as per HPI Eyes Reports no additional complaints ENT Reports no additional complaints Card Reports no additional complaints Resp Reports no additional complaints GI Reports as per HPI Reports as per HPI Musc Reports as per HPI Neuro Reports as per HPI Psych Reports as per HPI Endo Reports no additional complaints Jesus/Lymph Reports no additional complaints Aller/Immun Reports no additional complaints Physical Exam Const General: cooperative, healthy appearing, comfortable, no acute distress, well developed, alert and awake Nutritional Appearance: overweight Orientation/consciousness: patient oriented x3 Limitations: no limitations HEENT Head: Yes normal to inspection, Yes normocephalic and Yes atraumatic Ears: hearing grossly normal bilaterally Eyes General: appearance normal, both eyes and all related structures Neck Neck: Yes normal visual inspection and Yes trachea midline Chest Chest palpation & inspection: normal inspection of the chest Resp Effort & Inspection: normal respiratory effort and able to speak in complete sentences Cardio Rate: regular rate GI Inspection: Yes normal to inspection General: Yes no CVA tenderness Back/Spine/Pelvis Back: no CVA tenderness Skin General skin exam: no rashes or lesions noted Neuro General: patient oriented x3 Extrem General: Yes normal to inspection Psych Appearance: grossly normal and well kempt Mental Status: mental status grossly normal Speech and movement: Normal speech and movement present and Clear speech present Affect: normal affect Attitude: cooperative Thought process: Normal thought process present Thought content: Normal thought content present Insight: Fair insight present (Psych) Judgement: Fair judgement present (Psych) Office Procedures Post Void Residual Post Residual Void Post Void Residual (PVR): 30 [id number] Void Residual by ultrasound Results AMB Urinalysis, Automated UA Leukoctes 15 Ktalin/uL Last Edit by Dg Cruz on 08/17/23 15:39 UA Nitrite Negative Last Edit by Dg Cruz on 08/17/23 15:39 UA Urobilinogen 0.2 mg/dL Last Edit by Dg Cruz on 08/17/23 15:39 UA Protein 15 mg/dL Last Edit by Dg Anastephanie on 08/17/23 15:39 UA pH 6.0 Last Edit by Dg Cruz on 08/17/23 15:39 UA Blood 200 [place]/uL Last Edit by Dg Cruz on 08/17/23 15:39 UA Specific [place] 1.030 Last Edit by Dg Cruz on 08/17/23 15:39 UA Ketone Negative Last Edit by Dg Cruz on 08/17/23 15:39 UA Bilirubin 0 mg/dL Last Edit by Dg Cruz on 08/17/23 15:39 UA Glucose 0 mg/dL Last Edit by Dg Cruz on 08/17/23 15:39 Results Reviewed Results Reviewed: Laboratory Last Values Urine pH (Auto) 6.0 08/17/23 15:37 Specific [place] (Auto) 1.030 08/17/23 15:37 Urine Protein (Auto) 15 mg/dL 08/17/23 15:37 Glucose (UA)(Auto) 0 mg/dL 08/17/23 15:37 Urine Ketones (Auto) Negative 08/17/23 15:37 Urine Blood (Auto) 200 [place]/uL 08/17/23 15:37 Urine Nitrite (Auto) Negative 08/17/23 15:37 Urine Bilirubin (Auto) 0 mg/dL 08/17/23 15:37 Urine Urobilinogen (Auto) 0.2 mg/dL 08/17/23 15:37 Leukocyte Esterase (Auto) 15 [place]/uL 08/17/23 15:37 Assessment & Plan Assessment & Plan (1) Incomplete bladder emptying: Code(s): R33.9 - Retention of urine, unspecified (2) Microhematuria: Code(s): R31.29 - Other microscopic hematuria (3) Overactive bladder: Code(s): N32.81 - Overactive bladder (4) Urinary incontinence: Code(s): R32 - Unspecified urinary incontinence Plan In office urinalysis results reviewed with the patient today; as noted above; will send for urine cytology. PVR 30 mLs Discussed at length potential causes for lower urinary tract symptoms patient is experiencing. Discussed bladder triggers/irritants. Discussed at length potential causes for microscopic hematuria; discussed further treatment options with CT urogram and in office cystoscopy for further assessment evaluation; this was discussed at length; risks and benefits of further intervention was discussed. Start Myrbetriq as discussed and prescribed. Discussed possible near future in office urodynamics for further assessment evaluation. Continue scheduled/timed voiding. Follow-up in 6-8 weeks with PVR; or sooner with any issues, concerns, and or questions. Orders: Orders AMB Post Void Residual by ultrasound Today R33.9 - Retention of urine, unspecified AMB Urinalysis Automated Today Z13.9 - Encounter for screening, unspecified Urine Cytology Today R31.29 - Other microscopic hematuria Medications: New mirabegron ER (Myrbetriq) 25 mg PO DAILY 30 days 30 tabs 2RF N30.10 - Interstitial cystitis (chronic) without hematuria, N32.81 - Overactive bladder, R35.1 - Nocturia, R39.15 - Urgency of urination Patient Instructions: The patient had an opportunity to ask questions regarding the treatment plan. All questions were answered. Physical exam, labs, and imaging were discussed and reviewed in detail. As well as risks, benefits, and discussion of treatment choices. No major barriers to understanding were identified. The patient expressed understanding and agreement with the above treatment plan. The patient was made aware they should contact our office by phone for worsening of their current condition, the appearance of new symptoms, or with any questions or concerns. Compliance is encouraged with any medications and follow up testing that is ordered. It is a privilege to be allowed the opportunity to participate in? your urological care.? Again, if you have any questions or concerns If you have any questions or concerns please do not hesitate to contact me. The office is [phone]. This note is constructed using voice recognition software. While every effort has been made to ensure accuracy foreign language instructor errors may have been included. Yours sincerely, CHARLIE Flores Coding Level of Care Code Est Pt Level 4 (91922) Diagnoses Incomplete bladder emptying R33.9 Microhematuria R31.29 Overactive bladder N32.81 Urinary incontinence R32 CPT Codes Post Residual Void - PVR CPT Code: 88022-Umuk Void Residual by ultrasound ([id number])
== END 2023-08-17 15:42 | disposition home or self-care (01) ==
PROVIDERS: PCP Internal Medicine; Visit Provider Nurse Practitioner Family
DX: R33.9 Retention of urine, unspecified (principal); R31.29 Other microscopic hematuria; N32.81 Overactive bladder; R32 Unspecified urinary incontinence; Z13.9 Encounter for screening, unspecified
CPT/HCPCS: 99214

== ENCOUNTER 2023-08-17 14:54 | Outpatient (REF) | payer OTHER, SELFPAY ==
[2023-08-17 16:28] LABS: Urine Cytology See Pathology rpt
== END 2023-08-17 14:55 | disposition home or self-care (01) ==
LOC: HO.LNP 14:54
PROVIDERS: PCP Internal Medicine; Visit Provider Nurse Practitioner Family
DX: R33.9 Retention of urine, unspecified (principal); R31.29 Other microscopic hematuria; N32.81 Overactive bladder; R32 Unspecified urinary incontinence
CPT/HCPCS: 51798; 81003; 88112; 99212

== ENCOUNTER 2023-08-26 13:27 | Outpatient (AMB) | payer OTHER, SELFPAY ==
--- NOTE | 2023-08-26 13:37 | A.OFFPC_ITS ---
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 Accompanied by: Self / Same As Patient Allergies cashew nut Allergy (Severe, Verified 08/30/23 17:32) ANAPHYLAXIS cat dander Allergy (Severe, Verified 08/30/23 17:32) ITCHY SWELLING pregabalin [From Lyrica] Allergy (Severe, Verified 08/30/23 17:32) headaches,lower facial/chin swelling gabapentin Allergy (Intermediate, Verified 08/30/23 17:32) confusion, nausea house dust Allergy (Intermediate, Verified 08/30/23 17:32) Unknown Medication List - Last Reconciled 08/30/23 by Markell Vargas MD acetaminophen (Tylenol Extra Strength) 500 mg PO QID PRN hadpcrcsqz-gqgsixfvnaesq-tnwf 50-325-40 mg 1 tab PO Q6H PRN epinephrine IM DIRECTED ergocalciferol (vitamin D2) 1,250 mcg PO QWEEK 90 days ibuprofen 600 mg PO Q6H PRN lidocaine 5% 1 patch topical DAILY metaxalone 800 mg (2 x 400 mg) PO TID mirabegron ER (Myrbetriq) 25 mg PO DAILY 30 days omeprazole 20 mg PO DAILY 30 days ondansetron 4 mg PO Q6-8H PRN polyethylene glycol 3350 17 grams PO DAILY 30 days prednisone orally daily 3 tablets per day x 7 days 2 tablets per day x 7 days 1 tablet per day x 7 days rimegepant (Nurtec ODT) 75 mg PO Q OTHER DAY 30 days sumatriptan succinate (Imitrex) 50 mg PO Q2H PRN Tobacco use date assessed: 07/01/23 Dental Screening Dental Screen Date: 07/01/23 [facility] 08/12 migraines HPI Details Patient comes in today for her [facility] follow up visit Patient states that she went to the ER a couple of weeks ago on 08/13/2023 for increasing persistent/constant headaches that were not relieved by any of her current Rx She was reportedly given some Sumatriptan in the ER after which her headaches gradually subsided in intensity She had some labs done, all of which came back normal, and she was eventually discharged home when her headaches subsided States that she is currently still experiencing recurrent headaches on a daily basis She has reportedly tried prophylactic Tx for her migraine headaches in the past unsuccessfully Recalls being tried on Propranolol, Topiramate and Amitriptyline by neurology in the past and was most recently on Emgaliity, which she states helped initially but its efficacy also trailed off over time States that at her last appointment with Dr. Mccord, she was advised that there was nothing else to try her on except Botox injection She has not been back to see Dr. Mccord for neurology follow up in a few years She relates (+) photophobia and some nausea associated with her headaches but denies any dizziness Denies any chest pains, no SOB No vomiting, no abdominal pain and no change in bowel habits noted PFSH Medical History Pain in joint involving multiple sites Myalgia Obesity, Class III, BMI 40-49.9 (morbid obesity) IUD (intrauterine device) in place Morbid obesity with BMI of 45.0-49.9, adult Urge incontinence Insomnia GERD without esophagitis Peripheral neuropathy Depression Anxiety Migraine Fibromyalgia Vitamin D deficiency Constipation Bilateral hand pain Surgical History H/O bilateral breast reduction surgery (~06/2012) History of section History of tubal ligation Family History Father No problems noted. Mother No problems noted. 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 Depression Screening Interpretation: Positive Depression Screening Follow-up: E xisting condition and In treatment Depression Screening Done: Yes Source: Developed by Drs. Celso Joshi, Mary Jo Jaramillo, Tu Powell and colleagues, with an educational brandon from [employer]. Thrive Questionnaire Date Thrive assessed: 07/01/23 Currently or been in a relationship where the following occur: no concerns reported THRIVE Score: 0 ABDIRIZAK-7 AMB Questionnaire ABDIRIZAK-7 Date ABDIRIZAK - 7 assessed: 07/01/23 Source: Developed by Drs. Celso Joshi, Mary Jo Jaramillo, Tu Powell and colleagues, with an educational brandon from [employer]. Review of Systems Const Denies chills, Reports difficulty sleeping, Reports fatigue, Denies fever(s) and Reports headache(s) (recurrent/frequent) Eyes Reports photophobia (when headaches occur) ENT Denies dysphagia, Denies dizziness, Denies otalgia, Reports headache(s) (recurrent/frequent), Denies neck pain, Denies odynophagia and Denies sore throat Card Denies chest pain, Denies rapid heart rate, Denies irregular heart rhythm, Denies palpitations and Denies dyspnea Resp Denies chest congestion, Denies cough, Denies dyspnea and Denies wheezing GI Denies abdominal pain, Reports bloating, Reports constipation (increasing lately), Denies dysphagia, Denies heartburn, Denies diarrhea, Reports nausea (associated with headaches), Denies odynophagia and Denies vomiting Denies nocturia, Denies dysuria and Denies urinary urgency Musc Reports back pain, Reports myalgias (diffuse), Reports arthralgias (over multiple joints, including elbows and wrists; over L knee and thigh), Denies joint swelling, Denies muscle weakness and Denies neck pain Skin/Breast Denies rash Neuro Denies dizziness and Reports headache(s) (recurrent/frequent) Psych Denies anxiety and Reports depression Endo Reports fatigue and Denies palpitations Jesus/Lymph Denies easy bruising Aller/Immun Denies wheezing Physical exam (Primary Care) Vital Signs: Last Vital Signs Pulse 67 08/26/23 13:38 BP 102/68 08/26/23 13:38 Pulse Ox 95 08/26/23 13:38 Oxygen Delivery Method Room Air 08/26/23 13:38 BMI result Body Mass Index 39.8 Tobacco/Smoking Status: Tobacco use Status Tobacco use date assessed 07/01/23 08/26/23 13:37 Patient Tobacco Use Status Never used Tobacco 08/26/23 13:37 e-Cigarette/Vaping Use Never Used 08/26/23 13:37 Depression Screening Interpretation: Positive Depression Screening Follow-up: Existing condition and In treatment Thrive Assessment: Date of Thrive Assessment Date Thrive assessed 07/01/23 08/26/23 13:37 Currently or been in a relationship where the following occur: no concerns reported Const General: no acute distress and alert Orientation/consciousness: patient oriented x3 HENMT Ears: TM's normal bilaterally and EAC's normal Throat: Yes posterior oropharynx normal and Yes tonsils normal (no TP congestion) Eyes Direct Ophthalmoscopy: photophobia (when headaches occur) Neck Neck: Yes no lymphadenopathy and Yes supple Thyroid: Thyroid normal Resp Auscultation: clear to auscultation bilaterally, no rales and no wheezes Cardio Rate: regular rate Rhythm: regular rhythm Heart sounds: no murmurs GI Palpation (GI): Soft to palpation and nontender Auscultation: normal bowel sounds Back/Spine/Pelvis Cervical Spine: cervical muscular tenderness (bilaterally) and Cervical spine tenderness Thoracic/Lumbar Spine: paraspinal muscle tenderness bilaterally in the upper thoracic and in the mid thoracic and lumbar spinal tenderness (mild) Skin Rashes: no rashes Neuro General: patient oriented x3 Cognition (Neuro): normal cognition Extrem General: Yes no clubbing, cyanosis or edema Assessment and Plan Assessment & Plan (1) Migraine: Code(s): G43.909 - Migraine, unspecified, not intractable, without status migrainosus Qualifiers: Intractability: not intractable Migraine type: without aura Status migrainosus presence: without status migrainosus Qualified Code(s): G43.009 - Migraine without aura, not intractable, without status migrainosus Plan: Patient has failed prophylactic Tx in the past with Amitriptyline, Propranolol and Topiramate, among others, and has reportedly been advised by neurology a few years ago that her only available option left is Botox injections - states that this is still awaiting scheduling She was also most recently on Emgality, which she states helped initially but its efficacy seems to have waned over time She has also failed to respond to symptomatic Tx with Naprosyn, Gabapentin, Lyrica and Aimovig Continue Sumatriptan 50 mg PRN for now; she was also recently on Fioricet, which she states has not helped Will start her on a trial of Nurtec ODT PRN but advised that her insurance may decline to cover this without a prior suthorization request Will also refer her back to neurology for further evaluation and management (2) Patellofemoral arthritis of left knee: Code(s): M17.12 - Unilateral primary osteoarthritis, left knee Plan: Continue Ibuprofen 600 mg Q 6 hours PRN with food She has been referred to physical therapy for her knee in the past (3) Carpal tunnel syndrome of left wrist: Code(s): G56.02 - Carpal tunnel syndrome, left upper limb Plan: This was confirmed on NCV done in November 2022 Orthopedics has recommended surgery but this is currently still awaiting approval - states that is arguing that her injuries are not work-related Patient states that she recently requested for a follow-up orthopedics appointment and is considering getting her carpal tunnel surgery done JENNIFFER and not even try to get her surgery through worker's comp anymore (4) Fibromyalgia: Code(s): M79.7 - Fibromyalgia Plan: She is encouraged again on regular exercise and physical activity to help manage her fibromyalgia symptoms Was tried on Tramadol 50 mg TID PRN, Tizanidine 4 mg TID PRN, Duloxetine 60 mg QD, Amitriptyline 50 mg QD and Savella in the past but patient stopped taking these after a while, either due to side effects or poor response to Tx She has been referred to rheumatology for further evaluation and management (5) Gastritis: Code(s): K29.70 - Gastritis, unspecified, without bleeding Qualifiers: Gastritis type: unspecified gastritis Chronicity: unspecified Jerry ritis bleeding: without bleeding Qualified Code(s): K29.70 - Gastritis, unspecified, without bleeding Plan: Dietary restrictions reinforced Continue Omeprazole 20 mg QD (6) Vitamin D deficiency: Code(s): E55.9 - Vitamin D deficiency, unspecified Plan: Continue Vitamin D2 90041 units Q week (7) Constipation: Code(s): K59.00 - Constipation, unspecified Qualifiers: Constipation type: unspecified constipation type Qualified Code(s): K59.00 - Constipation, unspecified Plan: Encouraged increased oral fluids and dietary fiber Continue Miralax 17 gm QD (8) Insomnia: Code(s): G47.00 - Insomnia, unspecified Qualifiers: Insomnia type: unspecified Qualified Code(s): G47.00 - Insomnia, unspecified Plan: Sleep hygiene reinforced States that her Quetiapine helps with her sleep at night somewhat (9) Anxiety: Code(s): F41.9 - Anxiety disorder, unspecified Plan: Continue Quetiapine 25 mg BID PRN (10) Depression: Code(s): F32.9 - Major depressive disorder, single episode, unspecified Qualifiers: Depression Type: major depressive disorder Major depression recurrence: recurrent Active/Remission status: currently active Major depression episode severity: moderate Qualified Code(s): F33.1 - Major depressive disorder, recurrent, moderate Plan: Continue Quetiapine 25 mg BID Follow up with psychiatry as scheduled (11) Obesity (BMI 30-39.9): Code(s): E66.9 - Obesity, unspecified Plan: Reinforced diet/exercise as tolerated/lose weight Plan Follow up as scheduled in October 2023 Orders: Referrals Neurology Referral G43.009 - Migraine without aura, not intractable, without status migrainosus Medications: New rimegepant (Nurtec ODT) 75 mg PO Q OTHER DAY 30 days 15 tabs 3RF G43.009 - Migraine without aura, not intractable, without status migrainosus Coding Level of Care Code Est Pt Level 4 (69804) Diagnoses Migraine without aura and without status migrainosus, not intractable G43.009 Intractability: not intractable Migraine type: without aura Status migrainosus presence: without status migrainosus Patellofemoral arthritis of left knee M17.12 Carpal tunnel syndrome of left wrist G56.02 Fibromyalgia M79.7 Gastritis without bleeding, unspecified chronicity, unspecified gastritis type K29.70 Gastritis type: unspecified gastritis Chronicity: unspecified Gastritis bleeding: without bleeding Vitamin D deficiency E55.9 Constipation, unspecified constipation type K59.00 Constipation type: unspecified constipation type Insomnia, unspecified type G47.00 Insomnia type: unspecified Anxiety F41.9 Moderate episode of recurrent major depressive disorder F33.1 Depression Type: major depressive disorder Major depression recurrence: recurrent Active/Remission status: currently active Major depression episode severity: moderate Obesity (BMI 30-39.9) E66.9
[2023-08-26 13:38] VITALS: BP 102/68; PULSE 67; O2SAT 95; BMI 39.8
== END 2023-08-26 14:13 | disposition home or self-care (01) ==
PROVIDERS: PCP Internal Medicine; Visit Provider Internal Medicine
DX: G43.009 Migraine without aura, not intractable, without status migrainosus (principal); F33.1 Major depressive disorder, recurrent, moderate; M17.12 Unilateral primary osteoarthritis, left knee; G56.02 Carpal tunnel syndrome, left upper limb; M79.7 Fibromyalgia; K29.70 Gastritis, unspecified, without bleeding; E55.9 Vitamin D deficiency, unspecified; K59.00 Constipation, unspecified; G47.00 Insomnia, unspecified; F41.9 Anxiety disorder, unspecified; E66.9 Obesity, unspecified
CPT/HCPCS: 99214

== ENCOUNTER 2023-09-07 16:00 | Outpatient (RCR) | payer OTHER, SELFPAY ==
--- NOTE | 2023-08-05 13:27 | MHC.PT.EP ---
[facility] [place] Office [place] Office [place] [facility] [address] Keenan Briceno [address] [phone] F: [phone] F: [phone] F: [phone] F: [phone] Physical Therapy Plan of Care Date of Evaluation: 08/04/23 Date of Surgery: Diagnosis: LEFT hamstring muscle strain LEFT knee OA LEFT knee patellofemoral OA (RS) Assessment: Patient is a pleasant 38 y.o. female who is referred to PT by Dr. Markell Vargas MD, with Dx of LEFT knee unilateral primary OA, LEFT knee patellofemoral arthritis, LEFT hamstring muscle strain. Patient impairments include pain, localized edema, limited ROM, weakness, antalgic gait. Patient current functional limitations are get in/out tub, stair use, squatting, prolonged sitting, prolonged walking, pressure on back of knee, stair use. Patient will benefit from skilled PT to address aforementioned impairments and functional limitations to meet established goals. Frequency and Duration: The patient will be seen 1-2x/week for 4 weeks Short Term Goals: 2 weeks Patient demonstrates consistency and independence with HEP to self manage symptoms. Patient presents with increased knee extension 0 degrees to normalize gait pattern. Penitentiary Goals: 4 weeks 4 weeks Patient presents with increased L knee flexion 125 degrees to be able to perform squat to low surface. Patient presents with increased L knee flexion 5/5 to be able to ascend/descend stairs reciprocally. [ End ] Treatment Plan: Modalities to reduce pain, spasms and effusion. Manual therapy to restore motion and function. Therapeutic exercise to improve strength and flexibility. Neuromuscular re-education for posture and balance. Therapeutic activities to return to functional activities of daily living. Electronically signed by: Ambrose Hinton, PT, DPT Please sign and return to therapist. Thank you for your referral.
--- NOTE | 2023-10-19 10:35 | MHC.PT.DC ---
[facility] [place] Office [place] Office [place] Office [address] Keenan Briceno [address] [phone] F: [phone] F: [phone] F: [phone] F: [phone] Physical Therapy Discharge Report Diagnosis: LEFT hamstring muscle strain LEFT knee OA LEFT knee patellofemoral OA (RS) Date of Surgery: Date of Evaluation: 08/04/23 Date of Discharge: 10/19/23 Treatments to Date: 8 Cancellations to Date: 1 No Shows to Date: Discharge Status: Improved Function Independent with HEP Patient Elected to Stop Discharge Summary: Arminda demonstrated improvement with PT treatment. Her last session was on 09/07/23. The assessment on that date reads, Focused on modalities to begin session and she reports reduced sensitivity and pain after use of ultrasound to medial thigh where there is a palpable nodule that could be scar tissue or muscular in nature. It is much reduced since initial evaluation. She reports mild pain after HS stretching. She did not schedule any FUP appointments after this session. She has a HEP. Electronically signed by: Ambrose Hinton, PT, DPT Please sign and return to therapist. Thank you for your referral.
== END 2023-10-19 10:35 | disposition home or self-care (01) ==
LOC: HO.PT 16:00
PROVIDERS: PCP Internal Medicine; Visit Provider Internal Medicine
DX: M17.12 Unilateral primary osteoarthritis, left knee (principal); S76.312A Strain of muscle, fascia and tendon of the posterior muscle group at thigh level, left thigh, initial encounter
CPT/HCPCS: 97035; 97110; 97140; 97162; 97530

== ENCOUNTER 2023-09-30 15:32 | Outpatient (AMB) | payer OTHER, SELFPAY ==
--- NOTE | 2023-09-30 15:32 | MHC.OFFVIS ---
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 Accompanied by: Self / Same As Patient Allergies cashew nut Allergy (Severe, Verified 09/30/23 15:42) ANAPHYLAXIS cat dander Allergy (Severe, Verified 09/30/23 15:42) ITCHY SWELLING pregabalin [From Lyrica] Allergy (Severe, Verified 09/30/23 15:42) headaches,lower facial/chin swelling gabapentin Allergy (Intermediate, Verified 09/30/23 15:42) confusion, nausea house dust Allergy (Intermediate, Verified 09/30/23 15:42) Unknown Medication List - Last Reconciled 09/30/23 by CHARLIE Flores acetaminophen (Tylenol Extra Strength) 500 mg PO QID PRN anocudhatf-zwtmicwzhhvnt-zhzq 50-325-40 mg 1 tab PO Q6H PRN epinephrine IM DIRECTED ergocalciferol (vitamin D2) 1,250 mcg PO QWEEK 90 days ibuprofen 600 mg PO Q6H PRN lidocaine 5% 1 patch topical DAILY metaxalone 800 mg (2 x 400 mg) PO TID omeprazole 20 mg PO DAILY 30 days ondansetron 4 mg PO Q6-8H PRN polyethylene glycol 3350 17 grams PO DAILY 30 days prednisone orally daily 3 tablets per day x 7 days 2 tablets per day x 7 days 1 tablet per day x 7 days rimegepant (Nurtec ODT) 75 mg PO Q OTHER DAY 30 days sumatriptan succinate (Imitrex) 50 mg PO Q2H PRN HPI Comments Details: Arminda is a pleasant 38-year-old female patient of Dr. Vargas. She has a past medical history of migraines, anxiety, depression, peripheral neuropathy, constipation, GERD, insomnia, fibromyalgia, constipation, and carpal tunnel syndrome. She is being followed up on today via video telehealth for her ongoing lower urinary tract symptoms. In discussion with the patient today she reports not having started Myrbetriq as prescribed during last office visit here as she has had multiple other issue she has been dealing with. She discusses having followed up with rheumatology and her PCP for ongoing myalgia she has been experiencing. She discusses feeling lower urinary tract symptoms vary day today. She reports feeling when she is constipated they are exacerbated. She reports she has days with urinary urgency and frequency as well as nocturia however again symptoms vary. She has previously trialed low-dose terazosin for incomplete bladder emptying as well as antibiotic therapy for positive microgen results 10/31 and again 04/02. She has also previously trialed oxybutynin and VESIcare however did not find these medications. She otherwise denies hematuria, dysuria, foul smelling urine, changes to urinary stream, flank pain, fever, and or chills. Previous workup has included a retroperitoneal ultrasound noting bilateral kidneys with no calculi, lesions, or hydronephrosis noted. The bladder is well distended and normal. Bilateral ureteral jets are demonstrated. Prevoid bladder volume is approximately 300 mL. Postvoid bladder volume is approximately 30 mL. Discussed pelvic floor therapy however patient states she will not be able to attend at this time as she is already receiving physical therapy for her left leg after [place]. Discussed near future in office cystoscopy and or urodynamics if symptoms persist and or worsen. She otherwise offers no issues or concerns at this time. [facility] Medical History Pain in joint involving multiple sites Myalgia Obesity, Class III, BMI 40-49.9 (morbid obesity) IUD (intrauterine device) in place Morbid obesity with BMI of 45.0-49.9, adult Urge incontinence Insomnia GERD without esophagitis Peripheral neuropathy Depression Anxiety Migraine Fibromyalgia Vitamin D deficiency Constipation Bilateral hand pain Surgical History H/O bilateral breast reduction surgery (~06/2012) History of section History of tubal ligation Family History Father No problems noted. Mother No problems noted. 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 Cognitive needs: No Hearing needs: No Vision needs: Yes Female Reproductive History Menstrual Age of Menarche: 13 Review of Systems Const Reports as per HPI Eyes Reports no additional complaints ENT Reports no additional complaints Card Reports no additional complaints Resp Reports no additional complaints GI Reports as per HPI Reports as per HPI Musc Reports as per HPI Neuro Reports as per HPI Psych Reports as per HPI Endo Reports no additional complaints Jesus/Lymph Reports no additional complaints Aller/Immun Reports no additional complaints Physical Exam Const General: cooperative, healthy appearing, comfortable, no acute distress, well developed, alert and awake Orientation/consciousness: patient oriented x3 Resp Effort & Inspection: normal respiratory effort and able to speak in complete sentences Neuro General: patient oriented x3 Psych Appearance: grossly normal and well kempt Mental Status: mental status grossly normal Speech and movement: Clear speech present Affect: normal affect Attitude: cooperative Thought process: Normal thought process present Thought content: Normal thought content present Insight: Fair insight present (Psych) Judgement: Fair judgement present (Psych) Telehealth Telehealth Telehealth Platform: [employer] Location of provider rendering services: practice address Location of patient: address on file Patient Identification confirmed using: Name, : Yes Telehealth method: video Patient verbally consented to treatment: Yes Patient verbally consented to billing insurance company: Yes Patient informed of any privacy concerns related to visit: Yes Minutes spent on Phone/Video with Pt.: 15 Assessment & Plan Assessment & Plan (1) Incomplete bladder emptying: Code(s): R33.9 - Retention of urine, unspecified Category: Medical (2) Microhematuria: Code(s): R31.29 - Other microscopic hematuria Category: Medical (3) Overactive bladder: Code(s): N32.81 - Overactive bladder Category: Medical (4) Urinary incontinence: Code(s): R32 - Unspecified urinary incontinence Category: Medical Plan Previous cytology results reviewed with the patient today; 09/01-Negative for high-grade urothelial carcinoma. Discussed at length potential causes for lower urinary tract symptoms patient is experiencing. Discussed bladder triggers/irritants. Start Myrbetriq as discussed and prescribed; prescription resent. Discussed correlation of lower urinary tract symptoms and bowel irregularities. Discussed possible near future in office urodynamics for further assessment evaluation. Continue scheduled/timed voiding. Follow-up in 6-8 weeks with [facility]; or sooner with any issues, concerns, and or questions. Medications: New mirabegron ER (Myrbetriq) 25 mg PO DAILY 30 days 30 tabs 1RF N30.10 - Interstitial cystitis (chronic) without hematuria, N32.81 - Overactive bladder, R35.1 - Nocturia, R39.15 - Urgency of urination Patient Instructions: The patient had an opportunity to ask questions regarding the treatment plan. All questions were answered. Physical exam, labs, and imaging were discussed and reviewed in detail. As well as risks, benefits, and discussion of treatment choices. No major barriers to understanding were identified. The patient expressed understanding and agreement with the above treatment plan. The patient was made aware they should contact our office by phone for worsening of their current condition, the appearance of new symptoms, or with any questions or concerns. Compliance is encouraged with any medications and follow up testing that is ordered. It is a privilege to be allowed the opportunity to participate in? your urological care.? Again, if you have any questions or concerns If you have any questions or concerns please do not hesitate to contact me. The office is [phone]. This note is constructed using voice recognition software. While every effort has been made to ensure accuracy safety advisor errors may have been included. Yours sincerely, CHARLIE Flores Coding Level of Care Code Tele Est Pt Level 3 (05868) Diagnoses Incomplete bladder emptying R33.9 Microhematuria R31.29 Overactive bladder N32.81 Urinary incontinence R32
== END 2023-09-30 16:27 | disposition home or self-care (01) ==
LOC: HO.HUSH 15:32
PROVIDERS: PCP Internal Medicine; Visit Provider Nurse Practitioner Family
DX: R33.9 Retention of urine, unspecified (principal); R31.29 Other microscopic hematuria; N32.81 Overactive bladder; R32 Unspecified urinary incontinence
CPT/HCPCS: 99213

== ENCOUNTER → 2023-09-30 15:32 | Outpatient (BNVA) | payer OTHER, SELFPAY | PROVIDERS: PCP Internal Medicine; Visit Provider Nurse Practitioner Family ==

== ENCOUNTER 2023-10-08 15:23 | Outpatient (AMB) | payer OTHER, SELFPAY ==
--- NOTE | 2023-10-08 15:24 | A.OFFVIS_ITS ---
Vital Signs 10/08/23 15:29 Height 5 ft 6 in Weight 239 lb 10.279 oz BMI 38.7 BP 114/68 Blood Pressure Location Rt brachial Position Sitting Pulse 76 Pulse Source Palpation Intake Visit Reasons: Myalgia/Multiple Joint Pain/cm Intake Note: Established patient, last seen 08/11/23, presents today for myalgia follow up and test results. Allergies cashew nut Allergy (Severe, Verified 10/08/23 15:30) ANAPHYLAXIS cat dander Allergy (Severe, Verified 10/08/23 15:30) ITCHY SWELLING pregabalin [From Lyrica] Allergy (Severe, Verified 10/08/23 15:30) headaches,lower facial/chin swelling gabapentin Allergy (Intermediate, Verified 10/08/23 15:30) confusion, nausea house dust Allergy (Intermediate, Verified 10/08/23 15:30) Unknown HPI Comments Details: Arminda is a pleasant 38-year-old female patient presents for follow-up to review results for evaluation of multiple joint pain. She continue much the same with total body pain per patient. She denies any improvement on the course of Prednisone. 08/11/2023: Arminda is a pleasant 38-year-old female patient presents for evaluation of multiple joint pain. She has a past medical history of migraines, anxiety, depression, peripheral neuropathy, GERD, insomnia, fibromyalgia, constipation, and carpal tunnel syndrome. She had taken gabapentin but had facial numbness and headache. She denies redness swelling and warmth to her joints. --Mom has psoriasis and possible Raynaud's --negative rheumatoid factor and CCP --knee injury 06/2022 --lidocaine patch for lower back pain --denies signs and symptoms of CTD --Ibuprofen 600 mg q.6 hours PRN, Metaxalone 800 mg p.o. t.i.d., Lidocaine 5% 1 patch daily PFSH Medical History Pain in joint involving multiple sites Myalgia Obesity, Class III, BMI 40-49.9 (morbid obesity) IUD (intrauterine device) in place Morbid obesity with BMI of 45.0-49.9, adult Urge incontinence Insomnia GERD without esophagitis Peripheral neuropathy Depression Anxiety Migraine Fibromyalgia Vitamin D deficiency Constipation Bilateral hand pain Surgical History H/O bilateral breast reduction surgery (~06/2012) History of section History of tubal ligation Family History Father No problems noted. Mother No problems noted. 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 Regular rhythm, S1-S2 heard, no murmurs, rubs or gallops. LUNG:? Clear to percussion and auscultation EXTREMITIES:? No edema, no calf tenderness, normal peripheral pulses. NEURO:? Oriented and alert x3.? No focal weakness.? Reflexes symmetric.? Gait normal. JOINT EXAM: Chest Wall:.? No tenderness, swelling, increased warmth or erythema. Hands:.? Normal pain-free range of motion without tenderness, swelling, increased warmth or erythema. 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 Wrists:.? Normal pain-free range of motion without tenderness, swelling, increased warmth or erythema. Elbows:. Normal pain-free range of motion without tenderness, swelling, increased warmth or erythema. Shoulders:.?? Full range of motion without pain. No tenderness, weakness, swelling, increased warmth or erythema. Hips:.? Full range of motion without pain. Hip bursa:.? No tenderness. Knees:.?? Normal pain-free range of motion without tenderness, swelling, increased warmth or erythema.? There is no effusion or crepitation Ankles:.? Normal pain-free range of motion without tenderness, swelling, increased warmth or erythema. Feet:.? Normal pain-free range of motion without tenderness, swelling, increased warmth or erythema. Tender points:? No tenderness to digital palpation at the occiput, trapezius, second rib, lateral epicondyle, knees, greater trochanter and gluteal area bilaterally. Assessment & Plan Assessment & Plan (1) Pain in joint involving multiple sites: Code(s): M25.50 - Pain in unspecified joint Category: Medical (2) Cubital tunnel syndrome on left: Code(s): G56.22 - Lesion of ulnar nerve, left upper limb Category: Medical (3) Carpal tunnel syndrome of left wrist: Code(s): G56.02 - Carpal tunnel syndrome, left upper limb Category: Medical Plan The patient continues with athralgia and Cubital/carpal tunnel syndrome to her elbows and hands. I do not see a clinical picture for an autoimmune arthritis or CTD process and her Rheum panel is unremarkable. She had no swelling or tenderness to her small joints on PE. She should follow-up on CTS as she was worked up for that before. I spent 10 minutes evaluating patient reviewing chart and documenting Follow-up as needed Coding Level of Care Code Est Pt Level 2 (98043) Diagnoses Pain in joint involving multiple sites M25.50 Cubital tunnel syndrome on left G56.22 Carpal tunnel syndrome of left wrist G56.02
[2023-10-08 15:29] VITALS: BP 114/68; PULSE 76; BMI 38.7
== END 2023-10-08 16:10 | disposition home or self-care (01) ==
PROVIDERS: PCP Internal Medicine; Visit Provider Nurse Practitioner Family
DX: M25.50 Pain in unspecified joint (principal); G56.22 Lesion of ulnar nerve, left upper limb; G56.02 Carpal tunnel syndrome, left upper limb
CPT/HCPCS: 99212

== ENCOUNTER → 2023-10-08 15:23 | Outpatient (BNVA) | payer OTHER, SELFPAY | PROVIDERS: PCP Internal Medicine; Visit Provider Nurse Practitioner Family | DX: M25.50 Pain in unspecified joint (principal); G56.22 Lesion of ulnar nerve, left upper limb; G56.02 Carpal tunnel syndrome, left upper limb | CPT/HCPCS: 99212 ==

== ENCOUNTER 2023-10-30 15:42 | Outpatient (AMB) | payer OTHER, SELFPAY ==
[2023-10-30 15:43] VITALS: BP 122/70; PULSE 80; O2SAT 96; BMI 38.4
--- NOTE | 2023-10-30 15:43 | MHC.PC.OV ---
Vital Signs 10/30/23 15:43 Height 5 ft 6 in Weight 238 lb BMI 38.4 BP 122/70 Blood Pressure Location Lt brachial Position Sitting Pulse 80 Pulse Source Pulse Oximeter Pulse Oximetry (%) 96 Oxygen Delivery Method Room Air Intake Visit Reasons: 4 month f/u Intake Note: Patient is here to follow up Rn Intensive Care Unit Required: No Allergies cashew nut Allergy (Severe, Verified 10/30/23 16:26) ANAPHYLAXIS cat dander Allergy (Severe, Verified 10/30/23 16:26) ITCHY SWELLING pregabalin [From Lyrica] Allergy (Severe, Verified 10/30/23 16:26) headaches,lower facial/chin swelling gabapentin Allergy (Intermediate, Verified 10/30/23 16:26) confusion, nausea house dust Allergy (Intermediate, Verified 10/30/23 16:26) Unknown Medication List - Last Reconciled 10/30/23 by Markell Vargas MD acetaminophen (Tylenol Extra Strength) 500 mg PO QID PRN jmmnpewuxk-whsrvqmodovsf-yvxl 50-325-40 mg 1 tab PO Q6H PRN epinephrine IM DIRECTED ergocalciferol (vitamin D2) 1,250 mcg PO QWEEK 90 days ibuprofen 600 mg PO Q6H PRN lidocaine 5% 1 patch topical DAILY metaxalone 800 mg (2 x 400 mg) PO TID mirabegron ER (Myrbetriq) 25 mg PO DAILY 30 days omeprazole 20 mg PO DAILY 30 days ondansetron 4 mg PO Q6-8H PRN polyethylene glycol 3350 17 grams PO DAILY 30 days rimegepant (Nurtec ODT) 75 mg PO Q OTHER DAY 30 days sumatriptan succinate (Imitrex) 50 mg PO Q2H PRN Tobacco use date assessed: 07/01/23 Dental Screening Dental Screen Date: 07/01/23 HPI 4 month f/u HPI Details Patient comes in today for her follow up visit States that she is still experiencing recurrent headaches (migraine) and is being started back on Emgality again by Dr. Mccord and is just waiting for her insurance to approve her Rx She did not respond to Emgality in the past but was advised that as it has been a while since she was on it, it is worth trying her on it again as she also does not have much options left after everything she has tried in the past States that she was advised that her labs done in August 2023 were all mostly normal, including her tests for inflammatory markers, immunoglobulin level and protein electrophoresis Thinks that her symptoms now are mostly due to her migraine and her carpal tunnel syndrome, as she continues to experience frequent tingling sensation and numbness in her fingers and hands She denies any dizziness Denies any exertional chest pains or increased SOB No nausea/vomiting, no abdominal pain No change in bowel habits noted [facility] Medical History Pain in joint involving multiple sites Myalgia Obesity, Class III, BMI 40-49.9 (morbid obesity) IUD (intrauterine device) in place Morbid obesity with BMI of 45.0-49.9, adult Urge incontinence Insomnia GERD without esophagitis Peripheral neuropathy Depression Anxiety Migraine Fibromyalgia Vitamin D deficiency Constipation Bilateral hand pain Surgical History H/O bilateral breast reduction surgery (~06/2012) History of section History of tubal ligation Family History Father No problems noted. Mother No problems noted. 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 How often do you have a drink containing alcohol?: Never 2. How many drinks containing alcohol do you have on a typical day when you are drinking?: 1 or 2 (0) 3. How often do you have six or more drinks on one occasion?: Never Total Score: 0 Score Reviewed/Action Taken: Yes ABDIRIZAK-7 AMB Questionnaire ABDIRIZAK-7 Date ABDIRIZAK - 7 assessed: 07/01/23 Source: Developed by Drs. Celso Joshi, Mary Jo Jaramillo, Tu Powell and colleagues, with an educational brandon from [employer]. Review of Systems Const Denies chills, Reports difficulty sleeping, Reports fatigue, Denies fever(s) and Reports headache(s) (recurrent) Eyes Reports photophobia (when headaches occur) ENT Denies dysphagia, Denies dizziness, Denies otalgia, Reports headache(s) (recurrent), Denies neck pain, Denies odynophagia and Denies sore throat Card Denies chest pain, Denies irregular heart rhythm, Denies palpitations and Denies dyspnea Resp Denies cough, Denies dyspnea and Denies wheezing GI Denies abdominal pain, Reports constipation, Denies dysphagia, Denies heartburn, Denies diarrhea, Reports nausea (associated with headaches), Denies odynophagia and Denies vomiting Denies nocturia, Denies dysuria and Denies urinary urgency Musc Reports back pain, Reports arthralgias (over multiple joints, including elbows and wrists; over L knee and thigh), Denies joint swelling, Denies muscle weakness and Denies neck pain Skin/Breast Denies rash Neuro Denies dizziness, Reports headache(s) (recurrent) and Reports paresthesias (on and off in both hands/fingers) Psych Denies anxiety and Reports depression Endo Reports fatigue and Denies palpitations Aller/Immun Denies wheezing Physical exam (Primary Care) Vital Signs: Last Vital Signs Pulse 80 10/30/23 15:43 BP 122/70 10/30/23 15:43 Pulse Ox 96 10/30/23 15:43 Oxygen Delivery Method Room Air 10/30/23 15:43 BMI result Body Mass Index 38.4 Tobacco/Smoking Status: Tobacco use Status Tobacco use date assessed 07/01/23 10/30/23 15:44 Patient Tobacco Use Status Never used Tobacco 10/30/23 15:44 e-Cigarette/Vaping Use Never Used 10/30/23 15:44 Thrive Assessment: Date of Thrive Assessment Date Thrive assessed 07/01/23 10/30/23 15:44 Currently or been in a relationship where the following occur: no concerns reported Const General: no acute distress and alert HENMT Ears: TM's normal bilaterally and EAC's normal Throat: Yes posterior oropharynx normal and Yes tonsils normal (no TP congestion) Eyes Direct Ophthalmoscopy: photophobia (when headaches occur) Neck Neck: Yes no lymphadenopathy and Yes supple Thyroid: Thyroid normal Resp Auscultation: clear to auscultation bilaterally, no rales and no wheezes Cardio Rate: regular rate Rhythm: regular rhythm Heart sounds: no murmurs GI Palpation (GI): Soft to palpation and nontender Auscultation: normal bowel sounds Back/Spine/Pelvis Cervical Spine: cervical muscular tenderness (bilaterally) and Cervical spine tenderness Thoracic/Lumbar Spine: paraspinal muscle tenderness bilaterally in the upper thoracic and in the mid thoracic and lumbar spinal tenderness (mild) Skin Rashes: no rashes Extrem General: Yes no clubbing, cyanosis or edema Assessment and Plan Assessment & Plan (1) Migraine: Code(s): G43.909 - Migraine, unspecified, not intractable, without status migrainosus Qualifiers: Migraine type: without aura Status migrainosus presence: without status migrainosus Intractability: not intractable Qualified Code(s): G43.009 - Migraine without aura, not intractable, without status migrainosus Plan: Patient has failed prophylactic Tx in the past with Amitriptyline, Propranolol and Topiramate, among others, and has reportedly been advised by neurology a few years ago that her only available option left is Botox injections She was also most recently on Emgality, which she states helped initially but its efficacy seems to have waned over time As she has been off Emgality for a while now, is being tried back on it by neurology and this is reportedly still awaiting insurance approval again She has also failed to respond to symptomatic Tx with Naprosyn, Gabapentin, Lyrica and Aimovig Continue Sumatriptan 50 mg PRN for now; Fioricet have also reportedly not helped her Nurtec ODT PRN was prescribed for her by us recently but this was denied by her insurance Follow up with neurology as scheduled (2) Patellofemoral arthritis of left knee: Code(s): M17.12 - Unilateral primary osteoarthritis, left knee Plan: Continue Ibuprofen 600 mg Q 6 hours PRN with food She has been referred to physical therapy for her knee in the past with some relief (3) Carpal tunnel syndrome of left wrist: Code(s): G56.02 - Carpal tunnel syndrome, left upper limb Plan: This was confirmed on NCV done in November 2022 Orthopedics has recommended surgery but this is currently still awaiting approval - states that is arguing that her injuries are not work-related Follow up with orthopedics as scheduled (4) Fibromyalgia: Code(s): M79.7 - Fibromyalgia Plan: She is encouraged again on regular exercise and physical activity to help manage her fibromyalgia symptoms She was tried on Tramadol 50 mg TID PRN, Tizanidine 4 mg TID PRN, Duloxetine 60 mg QD, Amitriptyline 50 mg QD and Savella in the past but patient stopped taking these after a while, either due to side effects or poor response to Tx Was advised by rheumatology recently that she does not have any evidence of inflammatory joint disease and that her symptoms are mostly likely due to CTS and should follow up with orthopedics for this issue (5) Gastritis: Code(s): K29.70 - Gastritis, unspecified, without bleeding Qualifiers: Gastritis type: unspecified gastritis Chronicity: unspecified Gastritis bleeding: without bleeding Qualified Code(s): K29.70 - Gastritis, unspecified, without bleeding Plan: Dietary restrictions reinforced Continue Omeprazole 20 mg QD (6) Vitamin D deficiency: Code(s): E55.9 - Vitamin D deficiency, unspecified Plan: Continue Vitamin D2 93252 units Q week (7) Constipation: Code(s): K59.00 - Constipation, unspecified Qualifiers: Constipation type: unspecified constipation type Qualified Code(s): K59.00 - Constipation, unspecified Plan: Encouraged increased oral fluids and dietary fiber Continue Miralax 17 gm QD (8) Insomnia: Code(s): G47.00 - Insomnia, unspecified Qualifiers: Insomnia type: unspecified Qualified Code(s): G47.00 - Insomnia, unspecified Plan: Sleep hygiene reinforced States that her Quetiapine helps with her sleep at night somewhat (9) Anxiety: Code(s): F41.9 - Anxiety disorder, unspecified Plan: Continue Quetiapine 25 mg BID PRN (10) Depression: Code(s): F32.9 - Major depressive disorder, single episode, unspecified Qualifiers: Depression Type: major depressive disorder Major depression recurrence: recurrent Active/Remission status: currently active Major depression episode severity: moderate Qualified Code(s): F33.1 - Major depressive disorder, recurrent, moderate Plan: Continue Quetiapine 25 mg BID Follow up with psychiatry as scheduled (11) Obesity (BMI 30-39.9): Code(s): E66.9 - Obesity, unspecified Plan: Reinforced diet/exercise as tolerated/lose weight Plan To return in 4 months for her next annual physical examination Coding Level of Care Code Est Pt Level 4 (68495) Diagnoses Migraine without aura and without status migrainosus, not intractable G43.009 Migraine type: without aura Status migrainosus presence: without status migrainosus Intractability: not intractable Patellofemoral arthritis of left knee M17.12 Carpal tunnel syndrome of left wrist G56.02 Fibromyalgia M79.7 Gastritis without bleeding, unspecified chronicity, unspecified gastritis type K29.70 Gastritis type: unspecified gastritis Chronicity: unspecified Gastritis bleeding: without bleeding Vitamin D deficiency E55.9 Constipation, unspecified constipation type K59.00 Constipation type: unspecified constipation type Insomnia, unspecified type G47.00 Insomnia type: unspecified Anxiety F41.9 Moderate episode of recurrent major depressive disorder F33.1 Depression Type: major depressive disorder Major depression recurrence: recurrent Active/Remission status: currently active Major depression episode severity: moderate Obesity (BMI 30-39.9) E66.9
== END 2023-10-30 16:36 | disposition home or self-care (01) ==
PROVIDERS: PCP Internal Medicine; Visit Provider Internal Medicine
DX: G43.009 Migraine without aura, not intractable, without status migrainosus (principal); M17.12 Unilateral primary osteoarthritis, left knee; G56.02 Carpal tunnel syndrome, left upper limb; M79.7 Fibromyalgia; K29.70 Gastritis, unspecified, without bleeding; E55.9 Vitamin D deficiency, unspecified; K59.00 Constipation, unspecified; G47.00 Insomnia, unspecified; F41.9 Anxiety disorder, unspecified; F33.1 Major depressive disorder, recurrent, moderate
CPT/HCPCS: 99214

== ENCOUNTER 2023-12-02 15:47 | Outpatient (AMB) | payer OTHER, SELFPAY ==
--- NOTE | 2023-12-02 15:49 | A.OFFVIS_ITS ---
Intake Visit Reasons: Med Review/PVR Intake Note: Patient is present for follow up OAB/Micro Hematuria/Dysuria Urology Medications: myrbetriq Blood Thinner: none PVR: 0ml's Food Equipment Service Technician Required: No Accompanied by: Self / Same As Patient Allergies cashew nut Allergy (Severe, Verified 12/02/23 21:13) ANAPHYLAXIS cat dander Allergy (Severe, Verified 12/02/23 21:13) ITCHY SWELLING pregabalin [From Lyrica] Allergy (Severe, Verified 12/02/23 21:13) headaches,lower facial/chin swelling gabapentin Allergy (Intermediate, Verified 12/02/23 21:13) confusion, nausea house dust Allergy (Intermediate, Verified 12/02/23 21:13) Unknown Medication List - Last Reconciled 12/02/23 by CICI Flores-PAZ acetaminophen (Tylenol Extra Strength) 500 mg PO QID PRN nikacrspfj-dlqgmvpujtuoz-ypqy 50-325-40 mg 1 tab PO Q6H PRN epinephrine IM DIRECTED ergocalciferol (vitamin D2) 1,250 mcg PO QWEEK 90 days galcanezumab-gnlm (Emgality Pen) 120 mg subcut ibuprofen 600 mg PO Q6H PRN lidocaine 5% 1 patch topical DAILY metaxalone 800 mg (2 x 400 mg) PO TID mirabegron ER (Myrbetriq) 25 mg PO DAILY 30 days omeprazole 20 mg PO DAILY 30 days ondansetron 4 mg PO Q6-8H PRN polyethylene glycol 3350 17 grams PO DAILY 30 days rimegepant (Nurtec ODT) 75 mg PO Q OTHER DAY 30 days sumatriptan succinate (Imitrex) 50 mg PO Q2H PRN HPI Comments Details: Arminda is a pleasant 38-year-old female patient of Dr. Vargas. She has a past medical history of migraines, anxiety, depression, peripheral neuropathy, constipation, GERD, insomnia, fibromyalgia, constipation, and carpal tunnel syndrome. She presents to the office today for follow-up of her lower urinary tract symptoms. Of note, patient was last seen via video telehealth approximately 2 months ago at which time Myrbetriq 25 mg was initiated. In discussion with the patient today she does report feeling this has been somewhat helpful however given her lower urinary tract symptoms very she is not completel y sure. She does feel her lower urinary tract symptoms have not been bothersome. She currently denies any UTI like symptoms. She reports feeling when she he utilizes the bathroom more frequently such as every 2-3 hours she does not experience lower urinary tract symptoms. She reports the longer in between utilizing the bathroom she feels this is when lower urinary tract symptoms arise. She discusses continuing to follow-up with Rheumatology in her PCP for ongoing myalgias she has been experiencing. She has previously trialed low-dose terazosin for incomplete bladder emptying as well as antibiotic therapy for positive microgen results 10/31 and again 04/02. She has also previously trialed oxybutynin and VESIcare however did not find these medications. She otherwise denies hematuria, dysuria, foul smelling urine, changes to urinary stream, flank pain, fever, and or chills. Previous workup has included a retroperitoneal ultrasound noting bilateral kidneys with no calculi, lesions, or hydronephrosis noted. The bladder is well distended and normal. Bilateral ureteral jets are demonstrated. Prevoid bladder volume is approximately 300 mL. Postvoid bladder volume is approximately 30 mL. Discussed near future in office cystoscopy and or urodynamics if symptoms persist and or worsen. She otherwise offers no issues or concerns at this time. [facility] Medical History Pain in joint involving multiple sites Myalgia Obesity, Class III, BMI 40-49.9 (morbid obesity) IUD (intrauterine device) in place Morbid obesity with BMI of 45.0-49.9, adult Urge incontinence Insomnia GERD without esophagitis Peripheral neuropathy Depression Anxiety Migraine Fibromyalgia Vitamin D deficiency Constipation Bilateral hand pain Surgical History H/O bilateral breast reduction surgery (~06/2012) History of section History of tubal ligation Family History Father No problems noted. Mother No problems noted. 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 Cognitive needs: No Hearing needs: No Vision needs: Yes Female Reproductive History Menstrual Age of Menarche: 13 Review of Systems Const Reports as per HPI Eyes Reports no additional complaints ENT Reports no additional complaints Card Reports no additional complaints Resp Reports no additional complaints GI Reports as per HPI Reports as per HPI Musc Reports as per HPI Neuro Reports as per HPI Psych Reports as per HPI Endo Reports no additional complaints Jesus/Lymph Reports no additional complaints Aller/Immun Reports no additional complaints Physical Exam Const General: cooperative, healthy appearing, comfortable, no acute distress, well developed, alert and awake Nutritional Appearance: overweight Orientation/consciousness: patient oriented x3 Limitations: no limitations HEENT Head: Yes normal to inspection, Yes normocephalic and Yes atraumatic Ears: hearing grossly normal bilaterally Eyes General: appearance normal, both eyes and all related structures Neck Neck: Yes normal visual inspection and Yes trachea midline Chest Chest palpation & inspection: normal inspection of the chest Resp Effort & Inspection: normal respiratory effort and able to speak in complete sentences Cardio Rate: regular rate GI Inspection: Yes normal to inspection General: Yes no CVA tenderness Back/Spine/Pelvis Back: no CVA tenderness Skin General skin exam: no rashes or lesions noted Neuro General: patient oriented x3 Extrem General: Yes normal to inspection Psych Appearance: grossly normal and well kempt Mental Status: mental status grossly normal Speech and movement: Normal speech and movement present and Clear speech present Affect: normal affect Attitude: cooperative Thought process: Normal thought process present Thought content: Normal thought content present Insight: Fair insight present (Psych) Judgement: Fair judgement present (Psych) Office Procedures Post Void Residual Post Residual Void Post Void Residual (PVR): 0 [id number] Void Residual by ultrasound Results AMB Urinalysis, Automated UA Leukoctes 15 [place]/uL Last Edit by Dg Cruz on 12/02/23 16:24 UA Nitrite Negative Last Edit by Dg Cruz on 12/02/23 16:24 UA Urobilinogen 0.2 mg/dL Last Edit by Dg Cruz on 12/02/23 16:24 UA Protein 15 mg/dL Last Edit by gD Cruz on 12/02/23 16:24 UA pH 6.0 Last Edit by Dg Perezstephanie on 12/02/23 16:24 UA Blood 25 [place]/uL Last Edit by Dg Perezstephanie on 12/02/23 16:24 UA Specific [place] 1.020 Last Edit by Natanaelbreanna Anastephanie on 12/02/23 16:24 UA Ketone Negative Last Edit by Dg Perezstephanie on 12/02/23 16:24 UA Bilirubin 0 mg/dL Last Edit by Dg Perezstephanie on 12/02/23 16:24 UA Glucose 0 mg/dL Last Edit by Dg Anastephanie on 12/02/23 16:24 Results Reviewed Results Reviewed: Laboratory Last Values Urine pH (Auto) 6.0 12/02/23 16:20 Specific [place] (Auto) 1.020 12/02/23 16:20 Urine Protein (Auto) 15 mg/dL 12/02/23 16:20 Glucose (UA)(Auto) 0 mg/dL 12/02/23 16:20 Urine Ketones (Auto) Negative 12/02/23 16:20 Urine Blood (Auto) 25 [place]/uL 12/02/23 16:20 Urine Nitrite (Auto) Negative 12/02/23 16:20 Urine Bilirubin (Auto) 0 mg/dL 12/02/23 16:20 Urine Urobilinogen (Auto) 0.2 mg/dL 12/02/23 16:20 Leukocyte Esterase (Auto) 15 [place]/uL 12/02/23 16:20 Assessment & Plan Assessment & Plan (1) Incomplete bladder emptying: Code(s): R33.9 - Retention of urine, unspecified Category: Medical (2) Microhematuria: Code(s): R31.29 - Other microscopic hematuria Category: Medical (3) Overactive bladder: Code(s): N32.81 - Overactive bladder Category: Medical (4) Urinary incontinence: Code(s): R32 - Unspecified urinary incontinence Category: Medical Plan In office urinalysis results reviewed with the patient today. PVR 0 mL Continue Myrbetriq 25 mg daily as discussed and prescribed. Patient currently denies any bothersome urinary issues or concerns. She reports be happy with current voiding parameters. Discussed at length potential causes for lower urinary tract symptoms patient is experiencing. Discussed bladder triggers/irritants. Discussed correlation of lower urinary tract symptoms and bowel irregularities. Discussed possible near future in office urodynamics for further assessment evaluation. Discussed, educated, and stressed the importance of adequate hydration. Follow-up in 4 months with PVR; or sooner with any issues, concerns, and or questions. Orders: Orders AMB Post Void Residual by ultrasound Today R33.9 - Retention of urine, unspecif ied AMB Urinalysis Automated Today Z13.9 - Encounter for screening, unspecified Patient Instructions: The patient had an opportunity to ask questions regarding the treatment plan. All questions were answered. Physical exam, labs, and imaging were discussed and reviewed in detail. As well as risks, benefits, and discussion of treatment choices. No major barriers to understanding were identified. The patient expressed understanding and agreement with the above treatment plan. The patient was made aware they should contact our office by phone for worsening of their current condition, the appearance of new symptoms, or with any questions or concerns. Compliance is encouraged with any medications and follow up testing that is ordered. It is a privilege to be allowed the opportunity to participate in? your urological care.? Again, if you have any questions or concerns If you have any questions or concerns please do not hesitate to contact me. The office is [phone]. This note is constructed using voice recognition software. While every effort has been made to ensure accuracy cook apprentice errors may have been included. Yours sincerely, CHARLIE Flores Coding Level of Care Code Est Pt Level 3 (18106) Complex EM visit Add On G2211 Diagnoses Incomplete bladder emptying R33.9 Microhematuria R31.29 Overactive bladder N32.81 Urinary incontinence R32 CPT Codes Post Residual Void - PVR CPT Code: 89356-Qmna Void Residual by ultrasound ([id number])
== END 2023-12-02 16:42 | disposition home or self-care (01) ==
PROVIDERS: PCP Internal Medicine; Visit Provider Nurse Practitioner Family
DX: R33.9 Retention of urine, unspecified (principal); R31.29 Other microscopic hematuria; N32.81 Overactive bladder; R32 Unspecified urinary incontinence; Z13.9 Encounter for screening, unspecified
CPT/HCPCS: 99213; G2211

== ENCOUNTER → 2023-12-02 15:47 | Outpatient (BNVA) | payer OTHER, SELFPAY | PROVIDERS: PCP Internal Medicine; Visit Provider Nurse Practitioner Family | DX: R31.29 Other microscopic hematuria (principal); R33.9 Retention of urine, unspecified; N32.81 Overactive bladder; R32 Unspecified urinary incontinence | CPT/HCPCS: 51798; 81003; 99212 ==

== ENCOUNTER 2024-03-01 17:22 | Outpatient (AMB) | payer OTHER, SELFPAY ==
[2024-03-01 17:24] VITALS: BP 124/80; PULSE 69; O2SAT 97; BMI 37.9
--- NOTE | 2024-03-01 17:24 | MHC.PC.OV ---
Vital Signs 03/01/24 17:24 Height 5 ft 6 in Weight 235 lb BMI 37.9 BP 124/80 Blood Pressure Location Lt brachial Position Sitting Pulse 69 Pulse Source Pulse Oximeter Pulse Oximetry (%) 97 Oxygen Delivery Method Room Air Intake Visit Reasons: Annual Exam Rn Recruitment Required: No Accompanied by: Self / Same As Patient Allergies cashew nut Allergy (Severe, Verified 03/01/24 19:15) ANAPHYLAXIS cat dander Allergy (Severe, Verified 03/01/24 19:15) ITCHY SWELLING pregabalin [From Lyrica] Allergy (Severe, Verified 03/01/24 19:15) headaches,lower facial/chin swelling gabapentin Allergy (Intermediate, Verified 03/01/24 19:15) confusion, nausea house dust Allergy (Intermediate, Verified 03/01/24 19:15) Unknown Medication List - Last Reconciled 03/02/24 by Markell Vargas MD acetaminophen (Tylenol Extra Strength) 500 mg PO QID PRN epinephrine IM DIRECTED ergocalciferol (vitamin D2) 1,250 mcg PO QWEEK 90 days galcanezumab-gnlm (Emgality Pen) 120 mg subcut .ONCE A MONTH ibuprofen 600 mg PO Q6H PRN lidocaine 5% 1 patch topical DAILY metaxalone 800 mg (2 x 400 mg) PO TID mirabegron ER (Myrbetriq) 25 mg PO DAILY 30 days omeprazole 20 mg PO DAILY 30 days ondansetron 4 mg PO Q6-8H PRN polyethylene glycol 3350 17 grams PO DAILY 30 days quetiapine 25 mg PO BID sumatriptan succinate (Imitrex) 50 mg PO Q2H PRN Tobacco use date assessed: 03/01/24 Dental Screening Dental Screen Date: 03/01/24 Did you have a dental visit in the last 12 months?: No Did you have a dental problem in the last 6 months where you did not have access to dental care?: No Was dental information given to patient?: No HPI Annual Exam HPI Details Patient comes in today for her annual physical examination States that she continues to experience increased pain all over and that her symptoms are usually worse towards the end of the day when she comes home from work Relates experiencing increased pain in both hands constantly 01/12 - states that she sometimes cannot close her hands to make a fist due to the pain in her hands States that she has CTS in both hands but is not sure if her current pain is related to it or not Adds that she's had a recurrent sharp pain over her mid-sternal area for a few days now Notes that the pain feels worse with deep pressure onto her chest wall and she reports experiencing some relief with warm compress, and that the pain is not associated with increased activity or exertion She denies any headaches or dizziness lately - states that she is back on Emgality and that her migraine headaches have been well-controlled on her Rx Denies any exertional chest pains or SOB No nausea/vomiting, no abdominal pain No change in bowel habits noted She denies any acute urinary symptoms [facility] Medical History (Updated 03/02/24 @ 03:13 by Markell Vargas MD) Obesity (BMI 30-39.9) Carpal tunnel syndrome on both sides Pain in joint involving multiple sites Myalgia IUD (intrauterine device) in place Morbid obesity with BMI of 45.0-49.9, adult Urge incontinence Insomnia GERD without esophagitis Peripheral neuropathy Depression Anxiety Migraine Fibromyalgia Vitamin D deficiency Constipation Bilateral hand pain Surgical History H/O bilateral breast reduction surgery (~06/2012) History of section History of tubal ligation Family History Father No problems noted. Mother No problems noted. 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 1. Little interest or pleasure in doing things: several days 2. Feeling down, depressed, or hopeless: several days 3. Trouble falling or staying asleep, or sleeping too much: nearly every day 4. Feeling tired or having little energy: nearly every day 5. Poor appetite or overeating: nearly every day 6. Feeling bad about yourself - or that you are a failure or have let yourself or your family down: not at all 7. Trouble concentrating on things, such as reading the newspaper or watching television: not at all 8. Moving or speaking so slowly that other people could have noticed. Or the opposite - being so fidgety or restless that you have been moving around a lot more than usual: not at all 9. Thoughts that you would be better off or of hurting yourself in some way: not at all Total score: 11 Depression Screening Interpretation: Positive Depression Screening Follow-up: Existing condition and Follow-up Visit Requested Depression Screening Done: Yes 20043 - PHQ-9 Billing: Yes Source: Developed by Drs. Celso Joshi, Mary Jo Jaramillo, Tu Powell and colleagues, with an educational brandon from [employer]. Thrive Questionnaire Date Thrive assessed: 03/01/24 I am a: Patient What is your living situation today?: I have a steady place to live Within the past 12 months, did the food you bought not last and you didn't have the money to get more?: Sometimes True Within the past 12 months, did you worry whether your food would run out before you got money to buy more?: Never true Do you have trouble paying for medicines?: No Do you have trouble getting transportation to medical appointments?: No Do you have trouble paying your heating and electricity bill?: No Do you have trouble taking care of your child, family member or friend?: No Do you have trouble with day-to-day activities such as bathing, preparing meals, shopping, managing finances, etc.?: Yes Are you currently unemployed and looking for a job?: No Are you interested in more education?: No Please select the resources that you would like help with: None Currently or been in a relationship where the following occur: No concerns reported THRIVE Score: 1 AUDIT C Alcohol Use Questionnaire (AUDIT-C) 1. How often do you have a drink containing alcohol?: Monthly or less 2. How many drinks containing alcohol do you have on a typical day when you are drinking?: 1 or 2 3. How often do you have six or more drinks on one occasion?: Never Total Score: 1 Score Reviewed/Action Taken: Yes ABDIRIZAK-7 AMB Questionnaire ABDIRIZAK-7 Date ABDIRIZAK - 7 assessed: 03/01/24 Feeling nervous, anxious, or on edge: 3 = Nearly every day Not being able to stop or control worryin = Several days Worrying too much about different things: 1 = Several days Trouble relaxin = More than half the days Being so restless that it is hard to sit still: 1 = Several days Becoming easily annoyed or irritable: 1 = Several days Feeling afraid as if something awful might happen: 2 = More than half the days Total ABDIRIZAK-7 score (0-4 normal; 5-9 mild; 10-14 moderate; 15-21 severe): 11 Source: Developed by Drs. Celso Joshi, Mary Jo Jaramillo, Tu Powell and colleagues, with an educational brandon from [employer]. Review of Systems Const Denies chills, Reports fatigue, Denies fever(s), Denies headache(s) and Denies malaise Eyes Denies blurry vision, Denies change in vision, Denies irritation and Denies itchy eyes ENT Denies dysphagia, Denies dizziness, Denies otalgia, Denies headache(s), Reports neck pain, Denies odynophagia and Denies sore throat Card Reports chest pain (over the anterior chest wall - see HPI), Denies rapid heart rate, Denies irregular heart rhythm, Denies palpitations and Denies dyspnea Resp Denies chest congestion, Denies cough, Denies dyspnea and Denies wheezing GI Denies abdominal pain, Denies bloating, Denies constipation, Denies dysphagia, Denies heartburn, Denies diarrhea, Denies nausea, Denies odynophagia and Denies vomiting Denies hematuria, Denies urinary frequency, Denies dysuria, Denies urinary incontinence and Denies urinary urgency Musc Details: (+) pain in both hands, persistent and worse towards the end of the day Reports back pain, Reports myalgias (diffuse), Reports arthralgias (over multiple joints), Reports neck pain and Reports stiffness Skin/Breast Denies breast pain, Denies breast mass, Denies change in pigmentation, Denies lesions, Denies rash and Denies unusual bruising Neuro Denies dizziness, Denies headache(s) and Denies paresthesias Psych Denies anxiety and Denies depression Endo Reports fatigue and Denies palpitations Jesus/Lymph Denies easy bruising Aller/Immun Denies itchy eyes and Denies wheezing Physical exam (Primary Care) Vital Signs: Last Vital Signs Pulse 69 03/01/24 17:24 BP 124/80 03/01/24 17:24 Pulse Ox 97 03/01/24 17:24 Oxygen Delivery Method Room Air 03/01/24 17:24 BMI result Body Mass Index 37.9 Tobacco/Smoking Status: Tobacco use Status Tobacco use date assessed 03/01/24 03/01/24 17:29 Patient Tobacco Use Status Never used Tobacco 03/01/24 17:29 e-Cigarette/Vaping Use Never Used 03/01/24 17:29 PHQ-9: PHQ-9 Score PHQ-9: Total score 11 03/01/24 19:19 Depression Screening Interpretation: Positive Depression Screening Follow-up: Existing condition and Follow-up Visit Requested Thrive Assessment: Date of Thrive Assessment Date Thrive assessed 03/01/24 03/01/24 17:29 Currently or been in a relationship where the following occur: No concerns reported Const General: no acute distress, alert and awake Orientation/consciousness: patient oriented x3 HENMT Head: Yes normocephalic and Yes atraumatic Ears: external ears normal, TM's normal bilaterally and EAC's normal General nose exam: No nasal discharge present Face and sinus: Yes normal facial exam and Yes sinuses nontender Teeth and gingiva: dentition normal Throat: Yes posterior oropharynx normal and Yes tonsils normal (no TP congestion) Eyes Eyelids: Yes eyelids normal Conjunctivae: conjunctivae normal Pupils: Equal, round and reactive pupils present EOM: EOMs intact bilaterally Neck Neck: Yes no lymphadenopathy and Yes supple Thyroid: Thyroid normal Chest Other: (+) mild tenderness on deep palpation over the midsternal area and right sternocostal junction(s) Chest palpation & inspection: tenderness sternum Resp Auscultation: clear to auscultation bilaterally, no rales and no wheezes Cardio Rate: regular rate Rhythm: regular rhythm Heart sounds: no murmurs GI Palpation (GI): Soft to palpation, nontender and No hepatosplenomegaly present Auscultation: normal bowel sounds General: Yes no CVA tenderness Back/Spine/Pelvis Back: no CVA tenderness Thoracic/Lumbar Spine: paraspinal muscle tenderness bilaterally (over the cervical and thoracolumbar spine (diffuse)) and lumbar spinal tenderness Skin Lesions: no lesions Rashes: no rashes Neuro General: patient oriented x3, moves all extremities, no focal motor deficits and CN's II-XI intact bilaterally Cranial nerves: Yes Equal, round and reactive pupils present Cognition (Neuro): normal cognition Gait exam (Neuro): Normal gait present Extrem General: Yes no clubbing, cyanosis or edema Right upper extremity: shoulder/upper arm Details: tenderness (diffusely over the scapular area) Left upper extremity: shoulder/upper arm Details: tenderness (diffusely over the scapular areas) Coding Level of Care Code Est Pt Prev Care 18-39y(93055) Diagnoses Annual physical exam Z00.00 Carpal tunnel syndrome on both sides G56.03 Anterior chest wall pain R07.89 Migraine without aura and without status migrainosus, not intractable G43.009 Migraine type: without aura Status migrainosus presence: without status migrainosus Intractability: not intractable Patellofemoral arthritis of left knee M17.12 Fibromyalgia M79.7 Gastritis without bleeding, unspecified chronicity, unspecified gastritis type K29.70 Gastritis type: unspecified gastritis Chronicity: unspecified Gastritis bleeding: without bleeding Vitamin D deficiency E55.9 Constipation, unspecified constipation type K59.00 Constipation type: unspecified constipation type Insomnia, unspecified type G47.00 Insomnia type: unspecified Anxiety F41.9 Moderate episode of recurrent major depressive disorder F33.1 Depression Type: major depressive disorder Major depression recurrence: recurrent Active/Remission status: currently active Major depression episode severity: moderate Obesity (BMI 30-39.9) E66.9 Assessment & Plan Assessment & Plan (1) Annual physical exam: Code(s): Z00.00 - Encounter for general adult medical examination without abnormal findings Category: Medical Plan: Check labs She is scheduled for her next gynecology appointment in June 2024 (2) Carpal tunnel syndrome on both sides: Code(s): G56.03 - Carpal tunnel syndrome, bilateral upper limbs Category: Medical Plan: EMG and NCV on both upper extremities done back in 08/2009 revealed (+) mild CTS on the right upper extremity and mild to moderate CTS on the left side Repeat EMG and NCV done on the left upper extremity last year in 2022 showed (+) [id number] left median neuropathy across the carpal tunnel and mild left ulnar neuropathy across the cubital tunnel; the right side was not done as she was being evaluated for some work-related injury on her left arm/wrist back then As her symptoms appear to have progressed lately, will send her for repeat EMG and NCV of both upper extremities for reevaluation Will also refer her to orthopedics for further evaluation and management and consideration for CTS surgery (3) Anterior chest wall pain: Code(s): R07.89 - Other chest pain Category: Medical Plan: Have advised patient that her current mid-sternal pain appears consistent with costochondritis Will send her for ribs and sternal x-rays for further evaluation but advised that her x-rays will likely come out negative (4) Migraine: Code(s): G43.909 - Migraine, unspecified, not intractable, without status migrainosus Category: Medical Qualifiers: Migraine type: without aura Status migrainosus presence: without status migrainosus Intractability: not intractable Qualified Code(s): G43.009 - Migraine without aura, not intractable, without status migrainosus Plan: Patient has failed prophylactic Tx with Amitriptyline, Propranolol and Topiramate in the past and has reportedly been advised by neurology a few years ago that her only available option left is Botox injection She has also failed to respond to symptomatic Tx with Naprosyn, Gabapentin, Lyrica and Aimovig and Fioricet have also not helped Nurtec ODT PRN was prescribed for her recently but this was denied by her insurance She is now (back on) Emgality 120 mg SQ once a month and her migraine headaches appear to be well-controlled on her current Rx Continue Sumatriptan 50 mg PRN for symptomatic relief of acute headaches Follow up with neurology as scheduled (5) Patellofemoral arthritis of left knee: Code(s): M17.12 - Unilateral primary osteoarthritis, left knee Category: Medical Plan: Continue Ibuprofen 600 mg Q 6 hours PRN with food She has been referred to physical therapy for her knee in the past with some relief Follow up with orthopedics as scheduled or as needed (6) Fibromyalgia: Code(s): M79.7 - Fibromyalgia Category: Medical Plan: She is encouraged again on regular exercise and physical activity to help manage her fibromyalgia symptoms She was tried on Tramadol 50 mg TID PRN, Tizanidine 4 mg TID PRN, Duloxetine 60 mg QD, Amitriptyline 50 mg QD and Savella in the past but patient stopped taking these after a while, either due to side effects or poor response to Tx She was advised by rheumatology earlier this year that she does not have any evidence of inflammatory joint disease and that her symptoms are mostly likely due to OA, and CTS in her hands, and she should follow up with orthopedics for these issues (7) Gastritis: Code(s): K29.70 - Gastritis, unspecified, without bleeding Category: Medical Qualifiers: Gastritis type: unspecified gastritis Chronicity: unspecified Gastritis bleeding: without bleeding Qualified Code(s): K29.70 - Gastritis, unspecified, without bleeding Plan: Dietary restrictions reinforced Continue Omeprazole 20 mg QD (8) Vitamin D deficiency: Code(s): E55.9 - Vitamin D deficiency, unspecified Category: Medical Plan: Continue Vitamin D2 20384 units Q week (9) Constipation: Code(s): K59.00 - Constipation, unspecified Category: Medical Qualifiers: Constipation type: unspecified constipation type Qualified Code(s): K59.00 - Constipation, unspecified Plan: She is encouraged again on increased oral fluids and dietary fiber Continue Miralax 17 gm QD (10) Insomnia: Code(s): G47.00 - Insomnia, unspecified Category: Medical Qualifiers: Insomnia type: unspecified Qualified Code(s): G47.00 - Insomnia, unspecified Plan: Sleep hygiene reinforced States that her Quetiapine helps with her sleep at night somewhat (11) Anxiety: Code(s): F41.9 - Anxiety disorder, unspecified Category: Medical Plan: Continue Quetiapine 25 mg BID PRN (12) Depression: Code(s): F32.9 - Major depressive disorder, single episode, unspecified Category: Medical Qualifiers: Depression Type: major depressive disorder Major depression recurrence: recurrent Active/Remission status: currently active Major depression episode severity: moderate Qualified Code(s): F33.1 - Major depressive disorder, recurrent, moderate Plan: Continue Quetiapine 25 mg BID Follow up with psychiatry as scheduled (13) Obesity (BMI 30-39.9): Code(s): E66.9 - Obesity, unspecified Category: Medical Plan: Reinforced diet/exercise as tolerated/lose weight Plan Follow up in 6 months Orders: Orders NE nerve conduction velocity 03/01/24 G56.03 - Carpal tunnel syndrome, bilateral upper limbs Comprehensive [place]. Panel Fast 03/01/24 E78.00 - Pure hypercholesterolemia, unspecified, Z00.00 - Encounter for general adult medical examination without abnormal findings TSH reflex Free T4 03/01/24 E78.00 - Pure hypercholesterolemia, unspecified, Z00.00 - Encounter for general adult medical examination without abnormal findings Erythrocyte Sedimentation Rate 03/01/24 M79.7 - Fibromyalgia, Z00.00 - Encounter for general adult medical examination without abnormal findings C Reactive Protein 03/01/24 M79.7 - Fibromyalgia, R07.89 - Other chest pain Lyme IgG/IgM w/reflex to WB Today M79.10 - Myalgia, unspecified site, R53.82 - Chronic fatigue, unspecified Celia-Duenas Virus Profile Today M79.10 - Myalgia, unspecified site, R53.82 - Chronic fatigue, unspecified NE electromyogram (EMG) 03/01/24 G56.03 - Carpal tunnel syndrome, bilateral upper limbs Complete Blood Count Auto Diff 03/01/24 D64.9 - Anemia, unspecified, Z00.00 - Encounter for general adult medical examination without abnormal findings Lipid Panel 03/01/24 E78.00 - Pure hypercholesterolemia, unspecified, Z00.00 - Encounter for general adult medical examination without abnormal findings UA CC w/rflx Micro + Cult 03/01/24 R30.0 - Dysuria, Z00.00 - Encounter for general adult medical examination without abnormal findings Vitamin D 25-OH Total 03/01/24 E55.9 - Vitamin D deficiency, unspecified, Z00.00 - Encounter for general adult medical examination without abnormal findings XR ribs BI min 4V w CXR1V 03/01/24 R07.89 - Other chest pain XR sternum min 2V Today R07.89 - Other chest pain Referrals Orthopedics Referral G56.03 - Carpal tunnel syndrome, bilateral upper limbs
== END 2024-03-01 17:54 | disposition home or self-care (01) ==
PROVIDERS: PCP Internal Medicine; Visit Provider Internal Medicine
DX: Z00.00 Encounter for general adult medical examination without abnormal findings (principal); G56.03 Carpal tunnel syndrome, bilateral upper limbs; R07.89 Other chest pain; F33.1 Major depressive disorder, recurrent, moderate; G43.009 Migraine without aura, not intractable, without status migrainosus; M17.12 Unilateral primary osteoarthritis, left knee; M79.7 Fibromyalgia; K29.70 Gastritis, unspecified, without bleeding; E55.9 Vitamin D deficiency, unspecified; K59.00 Constipation, unspecified; G47.00 Insomnia, unspecified; F41.9 Anxiety disorder, unspecified

== ENCOUNTER → 2024-03-01 17:22 | Outpatient (BNVA) | payer OTHER, SELFPAY | PROVIDERS: PCP Internal Medicine; Visit Provider Internal Medicine | DX: Z00.00 Encounter for general adult medical examination without abnormal findings (principal); G56.03 Carpal tunnel syndrome, bilateral upper limbs; R07.89 Other chest pain; G43.009 Migraine without aura, not intractable, without status migrainosus; M17.12 Unilateral primary osteoarthritis, left knee; M79.7 Fibromyalgia; K29.70 Gastritis, unspecified, without bleeding; E55.9 Vitamin D deficiency, unspecified; K59.00 Constipation, unspecified; G47.00 Insomnia, unspecified; F41.9 Anxiety disorder, unspecified; F33.1 Major depressive disorder, recurrent, moderate; E66.9 Obesity, unspecified; Z68.37 Body mass index [BMI] 37.0-37.9, adult; Z79.899 Other long term (current) drug therapy | CPT/HCPCS: 96127; 99395 ==

== ENCOUNTER 2024-03-10 15:02 | Outpatient (REF) | payer OTHER, SELFPAY ==
--- NOTE | 2024-03-10 15:05 | EMG_ITS ---
Chief complaint: Chronic hand numbness and hand pain Patient reports having EMG done in the past, many years ago, showing Carpal Tunnel Syndrome bilateral. Reviewed EMG done by Dr. Dickey 11/20/2022 showing left ulnar neuropathy at the elbow and left Carpal Tunnel Syndrome. Patient has not had any surgeries. Reason for referral: Evaluate for Carpal Tunnel Syndrome or ulnar neuropathy Referred by: Dr. Vargas Procedure done: Bilateral upper extremities NCS/EMG Precautions and/or limitations: None The limb temperature was monitored continuously and remained between 32-36 degrees C during the performance of the NCS. Ulnar motor NCS was performed with moderate elbow flexion between 70-90 degrees, with across-elbow distance of 10 cm. Nerve Conduction Studies Anti Sensory Summary Table ?Stim Site NR Onset (ms) Norm Onset (ms) Peak (ms) Norm Peak (ms) O-P Amp (?V) Norm O-P Amp Site1 Site2 Delta-0 (ms) Dist (cm) Duncan (m/s) Norm Duncan (m/s) Left Median Anti Sensory (2nd Digit) Wrist ? 3.6 4.5 <3.6 10.3 >10 Wrist 2nd Digit 3.6 14.0 39 Right Median Anti Sensory (2nd Digit) Wrist ? 2.8 3.6 <3.6 27.5 >10 Wrist 2nd Digit 2.8 14.0 50 Left Ulnar Anti Sensory (5th Digit) Wrist ? 1.8 3.0 <3.7 10.0 >15.0 Wrist 5th Digit 1.8 14.0 78 Right Ulnar Anti Sensory (5th Digit) Wrist ? 2.2 2.8 <3.7 16.5 >15.0 Wrist 5th Digit 2.2 14.0 64 Motor Summary Table ?Stim Site NR Onset (ms) Norm Onset (ms) O-P Amp (mV) Norm O-P Amp iAmp (mV) Amp (1st) (%) Site1 Site2 Delta-0 (ms) Dist (cm) Duncan (m/s) Norm Duncan (m/s) Left Median Motor (Abd Poll Brev) Wrist ? 4.6 <3.9 8.9 >4.5 11.2 100.0 Elbow Wrist 2.7 0.0 >45 Elbow ? 7.3 9.8 12.4 110.1 Right Median Motor (Abd Poll Brev) Wrist ? 3.6 <3.9 9.6 >4.5 11.9 100.0 Elbow Wrist 4.1 22.0 54 >45 Elbow ? 7.7 8.1 10.1 84.4 Left Ulnar Motor (Abd Dig Minimi) Wrist ? 2.7 <3.0 6.4 >5 8.0 100.0 B Elbow Wrist 3.2 19.0 59 >45 B Elbow ? 5.9 5.2 7.0 81.3 A Elbow B Elbow 2.0 10.0 50 >45 A Elbow ? 7.9 4.8 6.5 75.0 Right Ulnar Motor (Abd Dig Minimi) Wrist ? 2.4 <3.0 5.9 >5 6.6 100.0 B Elbow Wrist 3.5 21.0 60 >45 B Elbow ? 5.9 5.8 6.4 98.3 A Elbow B Elbow 1.1 10.0 91 >45 A Elbow ? 7.0 5.6 6.3 94.9 Comparison Summary Table ?Stim Site NR Peak (ms) Norm Peak (ms) P-T Amp (?V) Site1 Site2 Delta-P (ms) Norm Delta (ms) Right Median/Radial Dig I Comparison (Digit 1 - 10cm) Median ? 2.9 <2.9 38.0 Median Radial 0.6 Radial ? 2.3 <2.8 14.5 EMG ?Side Muscle Nerve Root Ins Act Fibs Psw Amp Dur Poly Recrt Int Pat Comment Right 1stDorInt Ulnar C8-T1 Nml Nml Nml Nml Nml 0 Nml Complete Right FlexCarRad Median C6-7 Nml Nml Nml Nml Nml 0 Nml Complete Right Biceps Musculocut C5-6 Nml Nml Nml Nml Nml 0 Nml Complete Right Triceps Radial C6-7-8 Nml Nml Nml Nml Nml 0 Nml Complete Right Deltoid Axillary C5-6 Nml Nml Nml Nml Nml 0 Nml Complete Left 1stDorInt Ulnar C8-T1 Nml Nml Nml Nml Nml 0 Nml Complete Left Biceps Musculocut C5-6 Nml Nml Nml Nml Nml 0 Nml Complete Left Triceps Radial C6-7-8 Nml Nml Nml Nml Nml 0 Nml Complete Left Deltoid Axillary C5-6 Nml Nml Nml Nml Nml 0 Nml Complete Left FlexCarpiUln Ulnar C8,T1 Nml Nml Nml Nml Nml 0 Nml Complete FINDINGS: Left median motor nerve showed prolonged distal latency, normal amplitude and normal conduction velocity. Left median sensory nerve showed prolonged peak latency. Left ulnar sensory nerve showed normal peak latency but small amplitude. Evidence of possible Roosevelt Tammi anastomosis was seen on left, which is a normal anatomic variant. Interlatency difference between right median and radial sensory nerves was 0.6. All other nerves tested were within normal. Concentric needle EMG was performed in selected muscles of the bilateral upper extremities. Study did not reveal signs of electric abnormalities as shown in the table above. IMPRESSION: 1. This is an abnormal study. 2. There is electrodiagnostic evidence for left moderate-severe and right very mild/borderline median neuropathy at the wrist, consistent with carpal tunnel syndrome. 3. Remnants of a chronic left ulnar neuropathy with only slight slowing of conduction velocity across the elbow. 4. There is no electrodiagnostic evidence for brachial plexopathy or cervical radiculopathy. 5. Evidence of possible Roosevelt Tammi anastomosis was seen on left, which is a normal anatomic variant. Thank you for your kind referral. Johanna Romo MD, LYNDA Board Certified, [place] [employer] and [employer] (ABPMR) Board Certified, [place] [employer] Electro[employer] (ABEM) CODIN [phone] x 2 MTDD
== END 2024-03-10 15:03 | disposition home or self-care (01) ==
LOC: HO.NEURO 15:02
PROVIDERS: PCP Internal Medicine; Visit Provider Internal Medicine
DX: G56.03 Carpal tunnel syndrome, bilateral upper limbs (principal)
CPT/HCPCS: 95886; 95911

== ENCOUNTER → 2024-03-10 15:05 | Outpatient (BNV) | payer OTHER, SELFPAY | PROVIDERS: PCP Internal Medicine; Visit Provider Physical Medicine & Rehabilitation | DX: G56.03 Carpal tunnel syndrome, bilateral upper limbs (principal); G56.22 Lesion of ulnar nerve, left upper limb | CPT/HCPCS: 95886; 95911 ==

== ENCOUNTER 2024-03-10 15:23 | Outpatient (REF) | payer OTHER, SELFPAY | END 2024-03-10 15:24 | disposition home or self-care (01) | LOC: HO.XRAY 15:23 | PROVIDERS: PCP Internal Medicine; Visit Provider Internal Medicine | DX: R07.89 Other chest pain (principal) | CPT/HCPCS: 71111; 71120 ==

== ENCOUNTER 2024-03-12 10:25 | Outpatient (REF) | payer OTHER, SELFPAY ==
[2024-03-12 13:49] LABS: MANUAL DIFF FLAG NO
[2024-03-12 13:51] LABS: Basophils Percent Auto 0.3 % (0-2); Eosinophils Absolute Auto 0.1 X10*3/uL (0.0-0.4); Eosinophils Percent Auto 0.8 % (0-4); Hematocrit 36.8 % (37.0-47.0); Hemoglobin 12.6 g/dl (12.0-16.0); Imm Gran Abs Auto 0.01 X10*3/uL (0.00-0.03); Imm Gran Pct Auto 0.1 % (0.0-0.4); Lymphocytes Absolute Auto 1.6 X10*3/uL (1.2-4.9); Lymphocytes Percent Auto 21.7 % (20-40); Mean Corpuscular HGB Conc 34.2 g/dl (31.0-35.0); Mean Corpuscular Hemoglobin 31.1 pg (27.0-33.0); Mean Corpuscular Volume 90.9 fL (80.0-98.0); Mean Platelet Volume 11.5 fL (9.4-12.3); Monocytes Absolute Auto 0.4 X10*3/uL (0.1-1.2); Monocytes Percent Auto 5.2 % (2-11); Neutrophils Absolute Auto 5.3 x10*3/uL (2.0-8.3); Neutrophils Percent Auto 71.9 % (45-73); Platelet Count 223 X10*3/uL (160-400); Red Blood Count 4.05 X10*6/uL (4.20-5.50); Red Cell Distribution Width 13.2 % (11.0-16.0); White Blood Count 7.3 X10*3/uL (4.8-10.8)
[2024-03-12 13:53] LABS: Appearance Urine Clear; Color Urine Yellow; Glucose Urine UA Negative (Negative); Leukocyte Esterase Urine Trace (Negative); Nitrite Urine Negative (Negative); UMIC TRIGGER UACC YES; Urine Blood Negative (Negative); Urine Ketones Negative (Negative); Urine Protein Negative (Neg-Trace)
[2024-03-12 14:21] LABS: Bacteria Urine 4+ (None Seen); Hyaline Casts Urine 0-2 /LPF (0-2); RBC Urine 0-2 /HPF (0-2); Squamous Epithelial Cell Urine 0-2 /HPF (0-2); WBC Urine 0-5 /HPF (0-5)
[2024-03-12 14:22] LABS: Alanine Aminotransferase 27 U/L (0-31); Alkaline Phosphatase 68 U/L (39-117); Anion Gap 14 (12-20); Aspartate Amino Transferase 21 U/L (5-31); Bilirubin Total 0.7 mg/dL (0.0-1.0); Blood Urea Nitrogen 9 mg/dL (9-16); C Reactive Protein < 0.10 mg/dL (< or = 0.50); Calcium 8.8 mg/dL (8.4-10.2); Carbon Dioxide 24 mmol/L (22-29); Chloride 108 mmol/L (96-108); Cholesterol 172 mg/dL (<200); Estimated Glomerular Filt Rate > 60; Glucose Fasting 82 mg/dL (60-99); HDL Cholesterol 47 mg/dL (>40); LDL Cholesterol Calculated 112 mg/dL (<100); Potassium 4.3 mmol/L (3.3-5.1); Sodium 142 mmol/L (135-145); Triglycerides 67 mg/dL (<150)
[2024-03-12 14:34] LABS: Erythrocyte Sedimentation Rate 8 MM/HR (0-20)
[2024-03-12 14:37] LABS: TSH reflex Free T4 0.73 uIU/mL (0.32-4.0); Vitamin D 25-OH Total 14.7 ng/mL (>30)
[2024-03-14 22:48] LABS: Lyme Abs Screen <0.90 index
[2024-03-15 18:29] LABS: EBV-VCA IgM Ab <36.00 U/mL
== END 2024-03-12 10:26 | disposition home or self-care (01) ==
LOC: HO.HMGCLDS 10:25
PROVIDERS: PCP Internal Medicine; Visit Provider Internal Medicine
DX: Z00.00 Encounter for general adult medical examination without abnormal findings (principal); R07.89 Other chest pain; E78.00 Pure hypercholesterolemia, unspecified; R53.82 Chronic fatigue, unspecified; D64.9 Anemia, unspecified; M79.7 Fibromyalgia; E55.9 Vitamin D deficiency, unspecified
CPT/HCPCS: 36415; 80053; 80061; 81001; 82306; 84443; 85025; 85652; 86140; 86617; 86618; 86664; 86665

== ENCOUNTER 2024-03-17 10:51 | Outpatient (REF) | payer OTHER, SELFPAY | END 2024-03-17 10:52 | disposition home or self-care (01) | LOC: HO.LNP 10:51 | PROVIDERS: PCP Internal Medicine; Visit Provider Nurse Practitioner Family | DX: N39.0 Urinary tract infection, site not specified (principal); B95.1 Streptococcus, group B, as the cause of diseases classified elsewhere; N32.81 Overactive bladder; R32 Unspecified urinary incontinence; R39.9 Unspecified symptoms and signs involving the genitourinary system | CPT/HCPCS: 51798; 81003; 87086; 87147; 99212 ==

== ENCOUNTER 2024-03-17 10:51 | Outpatient (AMB) | payer OTHER, SELFPAY ==
--- NOTE | 2024-03-17 10:58 | MHC.OFFVIS ---
Intake Visit Reasons: 4m/PVR Intake Note: Patient presents today for follow up on: OAB/Micro Hematuria/Dysuria Urology Medications: ?myrbetriq Blood Thinner: none PVR: 0ml's Overhead Door Technician Required: No Accompanied by: Self / Same As Patient Allergies cashew nut Allergy (Severe, Verified 03/20/24 09:33) ANAPHYLAXIS cat dander Allergy (Severe, Verified 03/20/24 09:33) ITCHY SWELLING pregabalin [From Lyrica] Allergy (Severe, Verified 03/20/24 09:33) headaches,lower facial/chin swelling gabapentin Allergy (Intermediate, Verified 03/20/24 09:33) confusion, nausea house dust Allergy (Intermediate, Verified 03/20/24 09:33) Unknown Medication List - Last Reconciled 03/20/24 by CICI Flores-PAZ amoxicillin-pot clavulanate 500-125 mg (Augmentin) 1 tab PO Q8H 7 days epinephrine IM DIRECTED ergocalciferol (vitamin D2) 1,250 mcg PO QWEEK 90 days fluoxetine 20 mg PO DAILY galcanezumab-gnlm (Emgality Pen) 120 mg subcut .ONCE A MONTH hydroxyzine HCl 10 mg PO BID ibuprofen 600 mg PO Q6H PRN mirabegron ER (Myrbetriq) 25 mg PO DAILY 30 days omeprazole 20 mg PO DAILY 30 days ondansetron 4 mg PO Q6-8H PRN polyethylene glycol 3350 17 grams PO DAILY 30 days HPI Comments Details: Arminda is a pleasant 38-year-old female patient of Dr. Vargas. She has a past medical history of migraines, anxiety, depression, peripheral neuropathy, constipation, GERD, insomnia, fibromyalgia, constipation, and carpal tunnel syndrome. She presents to the office today for follow-up of her lower urinary tract symptoms. In discussion with the patient today she reports noting over the last 4 weeks she has been having episodes of urinary urgency and frequency and at times incontinence. She also reports at times noting foul-smelling urine. She reports having called the office to make a follow-up appointment for further assessment evaluation. In office urinalysis results reviewed with the patient today 1+ leukocytes negative nitrates. She reports she is unsure as to what urological medications she is taking. During last office visit Myrbetriq had been prescribed for lower urinary tract symptoms she had been experiencing however she is unsure as to if she is really taking this medication. She otherwise denies hematuria, dysuria, changes to urinary stream, flank pain, fever, and or chills. She does have a history of positive microgen results 10/31 and 04/02 and has since completed antibiotic therapy. She has had a history of incomplete bladder emptying and has been on terazosin however has since come off the medication. She also has a history of trialing oxybutynin VESIcare for ongoing lower urinary tract symptoms however did not find these medications to be helpful. Previous workup has included a retroperitoneal ultrasound 09/30 noting bilateral kidneys with no calculi, lesions, or hydronephrosis noted. The bladder is well distended and normal. Bilateral ureteral jets are demonstrated. Prevoid bladder volume is approximately 300 mL. Postvoid bladder volume is approximately 30 mL. Discussed near future in office cystoscopy and or urodynamics if symptoms persist and or worsen. PVR 0mls. She otherwise offers no issues or concerns at this time. [facility] Medical History Obesity (BMI 30-39.9) Carpal tunnel syndrome on both sides Pain in joint involving multiple sites Myalgia IUD (intrauterine device) in place Morbid obesity with BMI of 45.0-49.9, adult Urge incontinence Insomnia GERD without esophagitis Peripheral neuropathy Depression Anxiety Migraine Fibromyalgia Vitamin D deficiency Constipation Bilateral hand pain Surgical History H/O bilateral breast reduction surgery (~06/2012) History of section History of tubal ligation Family History Father No problems noted. Mother No problems noted. 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 needs: No Hearing needs: No Vision needs: Yes Female Reproductive History Menstrual Age of Menarche: 13 Review of Systems Const Reports as per [facility] Eyes Reports no additional complaints ENT Reports no additional complaints Card Reports no additional complaints Resp Reports no additional complaints GI Reports as per [facility] Reports as per [facility] Musc Reports as per HPI Neuro Reports as per HPI Psych Reports as per HPI Endo Reports no additional complaints Jesus/Lymph Reports no additional complaints Aller/Immun Reports no additional complaints Physical Exam Const General: cooperative, healthy appearing, comfortable, no acute distress, well developed, alert and awake Orientation/consciousness: patient oriented x3 Limitations: no limitations HEENT Head: Yes normal to inspection, Yes normocephalic and Yes atraumatic Ears: hearing grossly normal bilaterally Eyes General: appearance normal, both eyes and all related structures Neck Neck: Yes normal visual inspection and Yes trachea midline Chest Chest palpation & inspection: normal inspection of the chest Resp Effort & Inspection: normal respiratory effort and able to speak in complete sentences Cardio Rate: regular rate GI Inspection: Yes normal to inspection General: Yes no CVA tenderness Back/Spine/Pelvis Back: no CVA tenderness Skin General skin exam: no rashes or lesions noted Neuro General: patient oriented x3 Extrem General: Yes normal to inspection Psych Appearance: grossly normal and well kempt Mental Status: mental status grossly normal Speech and movement: Normal speech and movement present and Clear speech present Affect: normal affect Attitude: cooperative Thought process: Normal thought process present Thought content: Normal thought content present Insight: Fair insight present (Psych) Judgement: Fair judgement present (Psych) Office Procedures Post Void Residual Post Residual Void Post Void Residual (PVR): 0 [id number] Void Residual by ultrasound Results AMB Urinalysis, Automated UA Leukoctes 70 [place]/uL Last Edit by Dg Cruz on 03/17/24 11:54 UA Nitrite Last Edit by [employer] Nancy on 03/17/24 11:54 UA Urobilinogen 0.2 mg/dL Last Edit by [employer] Cruz on 03/17/24 11:54 UA Protein 15 mg/dL Last Edit by [employer] Cruz on 03/17/24 11:54 UA pH 6.0 Last Edit by [employer] Cruz on 03/17/24 11:54 UA Blood 10 [place]/uL Last Edit by [employer] Cruz on 03/17/24 11:54 UA Specific [place] 1.025 Last Edit by Dg Perezstephanie on 03/17/24 11:54 UA Ketone Last Edit by Natanaelam[employer]iss Perezstephanie on 03/17/24 11:54 UA Bilirubin 0 mg/dL Last Edit by Dg Perezstephanie on 03/17/24 11:54 UA Glucose 0 mg/dL Last Edit by Natanaelbreanna Anastephanie on 03/17/24 11:54 Results Reviewed Results Reviewed: Laboratory Last Values Urine pH (Auto) 6.0 03/17/24 11:43 Specific [place] (Auto) 1.025 03/17/24 11:43 Urine Protein (Auto) 15 mg/dL 03/17/24 11:43 Glucose (UA)(Auto) 0 mg/dL 03/17/24 11:43 Urine Blood (Auto) 10 [place]/uL 03/17/24 11:43 Urine Bilirubin (Auto) 0 mg/dL 03/17/24 11:43 Urine Urobilinogen (Auto) 0.2 mg/dL 03/17/24 11:43 Leukocyte Esterase (Auto) 70 [place]/uL 03/17/24 11:43 Assessment & Plan Assessment & Plan (1) Overactive bladder: Code(s): N32.81 - Overactive bladder Category: Medical (2) Urinary incontinence: Code(s): R32 - Unspecified urinary incontinence Category: Medical (3) Lower urinary tract symptoms: Code(s): R39.9 - Unspecified symptoms and signs involving the genitourinary system Category: Medical Plan In office urinalysis results reviewed with the patient today; as noted above; will send for urine culture; will await culture results for potential treatment. PVR 0mls. Discussed at length potential causes of lower urinary tract symptoms patient was experiencing. Discussed bladder triggers/irritants. Start Myrbetriq. Discussed UTI prevention with D mannose supplement, vitamin-C, increasing fluid intake, behavioral therapy with timed voiding, perineal hygiene and postcoital voiding, and management of constipation with stool softeners and increased fiber intake. Discussed possible near future in office cystoscopy and or urodynamics for further assessment evaluation. Follow-up in 1-3 months with PVR; or sooner with any issues, concerns, and or questions. Orders: Orders AMB Urinalysis Automated 03/17/24 Z13.9 - Encounter for screening, unspecified AMB Post Void Residual by ultrasound 03/17/24 R33.9 - Retention of urine, unspecified Urine Culture 03/17/24 N39.0 - Urinary tract infection, site not specified Medications: Refilled mirabegron ER (Myrbetriq) 25 mg PO DAILY 30 days 30 tabs 3RF N32.81 - Overactive bladder, R35.1 - Nocturia, R39.15 - Urgency of urination Patient Instructions: The patient had an opportunity to ask questions regarding the treatment plan. All questions were answered. Physical exam, labs, and imaging were discussed and reviewed in detail. As well as risks, benefits, and discussion of treatment choices. No major barriers to understanding were identified. The patient expressed understanding and agreement with the above treatment plan. The patient was made aware they should contact our office by phone for worsening of their current condition, the appearance of new symptoms, or with any questions or concerns. Compliance is encouraged with any medications and follow up testing that is ordered. It is a privilege to be allowed the opportunity to participate in? your urological care.? Again, if you have any questions or concerns If you have any questions or concerns please do not hesitate to contact me. The office is [phone]. This note is constructed using voice recognition software. While every effort has been made to ensure accuracy property economist errors may have been included. Yours sincerely, CHARLIE Flores Coding Level of Care Code Est Pt Level 4 (99434) Complex EM visit Add On G2211 Diagnoses Overactive bladder N32.81 Urinary incontinence R32 Lower urinary tract symptoms R39.9 CPT Codes Post Residual Void - PVR CPT Code: 79282-Gram Void Residual by ultrasound ([id number])
== END 2024-03-17 11:34 | disposition home or self-care (01) ==
LOC: HO.HUSH 10:51
PROVIDERS: PCP Internal Medicine; Visit Provider Nurse Practitioner Family
DX: N32.81 Overactive bladder (principal); R32 Unspecified urinary incontinence; R39.9 Unspecified symptoms and signs involving the genitourinary system
CPT/HCPCS: 99214; G2211

== ENCOUNTER 2024-03-23 15:38 | Outpatient (AMB) | payer OTHER, SELFPAY ==
--- NOTE | 2024-03-23 15:39 | A.OFFVIS_ITS ---
Vital Signs 03/23/24 15:49 Height 5 ft 6 in Weight 230 lb BMI 37.1 Handedness Right Intake Visit Reasons: NewProb- Carpal tunnel syndrome, B/L upper limbs Intake Note: Arminda is a 38 year old right hand dominant female who presents today for a new problem visit with complaints of bilateral hand numbness and tingling. EMG done on 03/10/2024. Patient reports her symptoms have been going on for years. She expresses difficulty with lifting, gripping, grasping, and squeezing. She reports she has a history of dropping objects. Her symptoms are in all of her bilateral fingers. She expresses pain with closing her hands and making a fist.She says this is ongoing all day long, there is not time period where it is better or worse. Reports occasional swelling of her bilateral hand. She denies past medical treatment to her hands in the past. She has tried OT for her hands however this did not help. She says OT has notice the weakness in her hands. She has tried multiple different braces in the past that did not offer relief. She would like to discuss starting surgery with the left hand and is interested in braces. She would like to know more about braces. Allergies cashew nut Allergy (Severe, Verified 03/23/24 15:50) ANAPHYLAXIS cat dander Allergy (Severe, Verified 03/23/24 15:50) ITCHY SWELLING pregabalin [From Lyrica] Allergy (Severe, Verified 03/23/24 15:50) headaches,lower facial/chin swelling gabapentin Allergy (Intermediate, Verified 03/23/24 15:50) confusion, nausea house dust Allergy (Intermediate, Verified 03/23/24 15:50) Unknown HPI HPI NewProb- Carpal tunnel syndrome, B/L upper limbs: Details: Patient is a 38-year-old female who presents for evaluation of bilateral carpal tunnel syndrome, with EMG done on 03/10/2024. The patient reports that her numbness and tingling is intermittent, but daily, and worse at night in both hands. The patient states that she does find that this pain is associated with weakness, and she finds that this makes it very difficult to lift things, as she finds herself frequently dropping things due to weakness. The patient does state that this weakness is constant, and daily, and often results in significant discomfort. Patient reports that she has tried occupational therapy, with no relief. No other acute complaints or concerns at this time. [facility] Medical History Obesity (BMI 30-39.9) Carpal tunnel syndrome on both sides Pain in joint involving multiple sites Myalgia IUD (intrauterine device) in place Morbid obesity with BMI of 45.0-49.9, adult Urge incontinence Insomnia GERD without esophagitis Peripheral neuropathy Depression Anxiety Migraine Fibromyalgia Vitamin D deficiency Constipation Bilateral hand pain Surgical History H/O bilateral breast reduction surgery (~06/2012) History of section History of tubal ligation Family History Father No problems noted. Mother No problems noted. 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 Good APB muscle firing and good finger cross. Vascular: Capillary refill brisk. ROM: Patient can make a fist and extend all their digits, but reports discomfort when doing so Skin: No lacerations or abrasions noted. General: No ecchymosis. No erythema or evidence of infection. Results Reviewed Results Reviewed: IMPRESSION: 1. This is an abnormal study. 2. There is electrodiagnostic evidence for left moderate-severe and right very mild/borderline median neuropathy at the wrist, consistent with carpal tunnel syndrome. 3. Remnants of a chronic left ulnar neuropathy with only slight slowing of conduction velocity across the elbow. 4. There is no electrodiagnostic evidence for brachial plexopathy or cervical radiculopathy. 5. Evidence of possible Roosevelt Tammi anastomosis was seen on left, which is a normal anatomic variant. Thank you for your kind referral. Johanna Romo MD, LYNDA Assessment & Plan Assessment & Plan (1) Carpal tunnel syndrome on both sides: Code(s): G56.03 - Carpal tunnel syndrome, bilateral upper limbs Category: Medical Plan 1. Carpal tunnel syndrome, left Symptoms intermittent, daily, worse at night I educated the patient about the condition. I discussed both operative and nonoperative treatment options. The patient would like to proceed with surgery. The risks and benefits of operative treatment were discussed with the patient and the patient wishes to proceed with surgery. These risks include, but are not limited to, risk of damage to blood vessels, nerves, tendons, infection, recurrence, incomplete relief of preoperative symptoms, persistent pain, possible need for further surgery, and the risks associated with regional blocks and/or anesthesia. Plan is to take the patient to the operating room at some point in the next few weeks for the following procedures: 1. Left carpal tunnel release under local anesthesia All of the preoperative paperwork including the consent was discussed today. All of the patient's questions were answered in the clinic today. The patient understands that they will be in contact with our surgical device sales representative to discuss scheduling their procedure. 2. Carpal tunnel syndrome, right Symptoms intermittent, daily, worse at night At this time, patient was more interested in surgical intervention on the left, as she finds this side significantly more bothersome Patient is educated that if she is recovering well from left-sided surgery, we can get the right side signed out of the postoperative evaluation Patient was amenable to this plan Patient will follow-up as needed with any acute concerns Coding Level of Care Code New Pt Level 4 (11774) Diagnoses Carpal tunnel syndrome on both sides G56.03
[2024-03-23 15:49] VITALS: BMI 37.1
== END 2024-03-23 16:23 | disposition home or self-care (01) ==
PROVIDERS: PCP Internal Medicine
DX: G56.03 Carpal tunnel syndrome, bilateral upper limbs (principal)
CPT/HCPCS: 99204

== ENCOUNTER → 2024-03-23 15:38 | Outpatient (BNVA) | payer OTHER, SELFPAY | PROVIDERS: PCP Internal Medicine | DX: G56.03 Carpal tunnel syndrome, bilateral upper limbs (principal) | CPT/HCPCS: 99202 ==

== ENCOUNTER 2024-05-05 08:45 | Day surgery (SDC) | payer OTHER, SELFPAY ==
[2024-05-05 09:16] VITALS: BP 121/72; PULSE 88; RESP 16; TEMP 36.5; O2SAT 97; BMI 37.2
--- NOTE | 2024-05-05 10:18 | MHC.SHP ---
Pre-Procedural Eval Section A - 24 Hr Update-Section A only Date of Service: 05/05/24 The patient is an INPATIENT: No Changes since office visit: No Cold of Flu in the past 2 weeks, No New Medical Problems, No Changes in Medication and No Patient answered all questions The patient has been examined within 24 hours of the surgical procedure. The History & Physical has been completed within 30 days and I have reviewed it.: Yes Section B - Complete if H&P > 30 days Chief Complaint: Carpal tunnel syndrome, left upper limb Allergies: Allergies Allergy/AdvReac Type Severity Reaction Status Date / Time cashew nut Allergy Severe ANAPHYLAXIS Verified 03/23/24 15:50 cat dander Allergy Severe ITCHY Verified 03/23/24 15:50 SWELLING pregabalin [From Lyrica] Allergy Severe headaches,lower Verified 03/23/24 15:50 facial/chin swelling gabapentin Allergy Intermediate confusion, Verified 03/23/24 15:50 nausea house dust Allergy Intermediate Unknown Verified 03/23/24 15:50 Plan Diagnosis/Plan: Unchanged I have reviewed the history and physical and performed a pertinent physical examination on my patient. No changes have occurred unless specified. Time Spent With Patient Time: Total time managing care of this patient today ____ minutes.
--- NOTE | 2024-05-05 10:19 | P.OP_ITS ---
Operative Note Operative Note Date of Service: 05/05/24 Narrative: Preop diagnosis: 1. Left Carpal tunnel syndrome Postop diagnosis: same Procedure: 1. Left Carpal tunnel release Surgeon: Yoladna Jackman MD Accounts Receivable Coordinator: Moises BORREGO Anesthesia: local block using 1% lidocaine with epinephrine Findings: Thickened transverse carpal ligament. EBL: Less than 5 mL Specimens: None Complications: None Disposition: Brought to recovery room in stable condition Plan: Follow-up for 10-14 days for wound check and suture removal Indications: The patient is 38 years old, with left carpal tunnel syndrome that has been unresponsive to nonoperative management. The risks and benefits of operative treatment including but not limited to risk of damage to blood vessels, nerves, tendons, infection, persistent pain, persistent symptoms, or possible need for additional surgery were discussed with the patient and the patient wishes to proceed with surgery. Procedure: Once consent was obtained a local block was performed using a combination of 1% lidocaine with epinephrine. The patient was then brought back to the operating suite and placed on the operative table in supine position. The left upper extremity was prepped and draped in a standard surgical fashion. Once assured that we had a good block, a 2.0 cm longitudinal incision was made centered over the carpal tunnel. The incision was made through the skin to the subcutaneous tissues using a #15 blade. Dissection was made down to the level of the transverse carpal ligament with care being taken to protect the palmar cutaneous nerve. Once the transverse carpal ligament was clearly visualized, a longitudinal incision was made in the transverse carpal ligament 1st using a #15 blade, then using tenotomy scissors under direct visualization. Care was taken to look for and protect the motor branch of the median nerve when seen in this area. Once satisfied with our carpal tunnel release the wound was copiously irrigated with normal saline and hemostasis was obtained with a brief period of local pressure. The skin edges were reapproximated with some 5.0 nylon suture material and a sterile dressing was applied. The patient appears to have tolerated the procedure well and with no complications. All digits were well vascularized at the conclusion of the case.
[2024-05-05 12:53] VITALS: BP 116/79; PULSE 68; RESP 18; O2SAT 100
== END 2024-05-05 12:56 | disposition home or self-care (01) ==
PROVIDERS: PCP Internal Medicine; Visit Provider Orthopaedic Surgery
PROC: (CPT 64721; principal; 2024-05-05 10:30)
DX: G56.02 Carpal tunnel syndrome, left upper limb (principal); R20.2 Paresthesia of skin; R20.0 Anesthesia of skin; M79.642 Pain in left hand; M79.7 Fibromyalgia; E55.9 Vitamin D deficiency, unspecified; G62.9 Polyneuropathy, unspecified; E66.9 Obesity, unspecified; Z68.37 Body mass index [BMI] 37.0-37.9, adult; F32.A Depression, unspecified; F41.9 Anxiety disorder, unspecified; Z79.899 Other long term (current) drug therapy; Z98.890 Other specified postprocedural states
CPT/HCPCS: 64721; J0171; J2003

== ENCOUNTER → 2024-05-05 08:45 | Outpatient (BNV) | payer OTHER, SELFPAY | PROVIDERS: PCP Internal Medicine; Visit Provider Orthopaedic Surgery | DX: G56.02 Carpal tunnel syndrome, left upper limb (principal) | CPT/HCPCS: 64721 ==

== ENCOUNTER 2024-05-18 11:37 | Outpatient (AMB) | payer OTHER, SELFPAY ==
[2024-05-18 11:48] VITALS: BMI 37.1
--- NOTE | 2024-05-18 11:48 | MHC.OFFVIS ---
Vital Signs 05/18/24 11:48 Height 5 ft 6 in Weight 230 lb BMI 37.1 Intake Visit Reasons: PO LT CTR 05/05/24 AR Intake Note: Arminad is a 38 year old right hand dominant female who presents today for a post operative appointment s/p Left Carpal Tunnel Release 05/05/24. Patient reports that she has been having continued numbness, tingling and pain of the left hand. She is also experiencing pain/twitching of the left thumb. Sutures removed and Steris applied - she was quite sensative with this procedure. Provided patient with an ice pack. Allergies cashew nut Allergy (Severe, Verified 05/18/24 11:51) ANAPHYLAXIS cat dander Allergy (Severe, Verified 05/18/24 11:51) ITCHY SWELLING pregabalin [From Lyrica] Allergy (Severe, Verified 05/18/24 11:51) headaches,lower facial/chin swelling gabapentin Allergy (Intermediate, Verified 05/18/24 11:51) confusion, nausea house dust Allergy (Intermediate, Verified 05/18/24 11:51) Unknown HPI HPI PO LT CTR 05/05/24 AR: Details: Arminda is a 38 year old right hand dominant female who presents today for a post operative appointment s/p Left Carpal Tunnel Release 05/05/24. Patient reports that she has been having continued numbness, tingling and pain of the left hand. She is also experiencing pain/twitching of the left thumb. Sutures removed and Steris applied PFSH Medical History Obesity (BMI 30-39.9) Carpal tunnel syndrome on both sides Pain in joint involving multiple sites Myalgia IUD (intrauterine device) in place Morbid obesity with BMI of 45.0-49.9, adult Urge incontinence Insomnia GERD without esophagitis Peripheral neuropathy Depression Anxiety Migraine Fibromyalgia Vitamin D deficiency Constipation Bilateral hand pain Surgical History H/O bilateral breast reduction surgery (~06/2012) History of section History of tubal ligation Family History Father No problems noted. Mother No problems noted. 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 Neuro: Normal sensation of the tips of all digits of the left hand at this time Vascular: Cap refill brisk Pain: Patient reports tenderness to palpation around the incision site and the volar left wrist ROM: Patient is able to make a closed fist and extend all digits of the left hand fully Skin: Well-approximated well-healing surgical incision noted in the volar aspect patient's left wrist However, there is noted to be significant edema surrounding incision site No erythema, ecchymosis, drainage No evidence of infection General: No ecchymosis, erythema, or evidence of infection. Psych: Appears grossly normal Affect normal Attitude cooperative Assessment & Plan Assessment & Plan (1) Carpal tunnel syndrome of left wrist: Code(s): G56.02 - Carpal tunnel syndrome, left upper limb Category: Medical Plan 1. Left carpal tunnel syndrome status post carpal tunnel release DOS 05/05/2024 Patient appears to be recovering fairly well postoperatively Patient is educated about the typical recovery course At this time, patient will be referred occupational therapy for range of motion strengthening of the right hand in the setting of pillar pain, as well as desensitization of the incision site Patient was amenable to this plan Carpal tunnel symptoms appear completely resolved since surgery Patient will follow-up as needed with any acute concerns Coding Level of Care Code Global (24948) Diagnoses Carpal tunnel syndrome of left wrist G56.02
== END 2024-05-18 12:01 | disposition home or self-care (01) ==
PROVIDERS: PCP Internal Medicine
DX: G56.02 Carpal tunnel syndrome, left upper limb (principal)
CPT/HCPCS: 99024

== ENCOUNTER → 2024-05-18 11:37 | Outpatient (BNVA) | payer OTHER, SELFPAY | PROVIDERS: PCP Internal Medicine | DX: Z47.89 Encounter for other orthopedic aftercare (principal); Z98.890 Other specified postprocedural states | CPT/HCPCS: 99212 ==

== ENCOUNTER 2024-06-13 15:39 | Outpatient (AMB) | payer OTHER, SELFPAY ==
--- NOTE | 2024-06-13 15:51 | A.OFFVIS_ITS ---
Intake Visit Reasons: 3m/PVR Intake Note: Patient presents today for follow up on: OAB/Micro Hematuria/Dysuria Urology Medications: ?myrbetriq Blood Thinner: none PVR: 0ml's Associate Dentist Required: No Accompanied by: Self / Same As Patient Allergies cashew nut Allergy (Severe, Verified 06/13/24 16:53) ANAPHYLAXIS cat dander Allergy (Severe, Verified 06/13/24 16:53) ITCHY SWELLING pregabalin [From Lyrica] Allergy (Severe, Verified 06/13/24 16:53) headaches,lower facial/chin swelling gabapentin Allergy (Intermediate, Verified 06/13/24 16:53) confusion, nausea house dust Allergy (Intermediate, Verified 06/13/24 16:53) Unknown Medication List - Last Reconciled 06/13/24 by CICI Flores-PAZ epinephrine IM DIRECTED fluoxetine 20 mg PO DAILY galcanezumab-gnlm (Emgality Pen) 120 mg subcut .ONCE A MONTH hydroxyzine HCl 10 mg PO BID ibuprofen 600 mg PO Q6H PRN mirabegron ER (Myrbetriq) 25 mg PO DAILY 30 days ondansetron 4 mg PO Q6-8H PRN oxycodone-acetaminophen 5-325 mg 1 tab PO Q6H PRN polyethylene glycol 3350 17 grams PO DAILY 30 days HPI Comments Details: Arminda is a pleasant 39-year-old female patient of Dr. Vargas. She has a past medical history of migraines, anxiety, depression, peripheral neuropathy, constipation, GERD, insomnia, fibromyalgia, constipation, and carpal tunnel syndrome. She presents to the office today for follow-up of her lower urinary tract symptoms. In discussion with the patient today she reports noting improvement in lower urinary tract symptoms over the last 3 months with compliance with Myrbetriq. She reports episodes of urinary urgency and frequency she had been experiencing have significantly subsided. She does however report having had a yeast infection and felt symptoms restarted. She reports having completed ebwh-uci-iwuzrtf therapy for yeast infection. In office urinalysis results reviewed with the patient today. PVR 0 mL. She does report noting intermittent episodes of dark colored urine and foul smelling urine. She otherwise denies nocturia, hematuria, dysuria, changes to urinary stream, flank pain, fever, and or chills. She does have a history of positive microgen results 10/31 and 04/02 and has since completed antibiotic therapy. She has had a history of incomplete bladder emptying and has been on terazosin however has since come off the medication. She also has a history of trialing oxybutynin VESIcare for ongoing lower urinary tract symptoms however did not find these medications to be helpful. Previous workup has included a retroperitoneal ultrasound 09/30 noting bilateral kidneys with no calculi, lesions, or hydronephrosis noted. The bladder is well distended and normal. Joseph ateral ureteral jets are demonstrated. Prevoid bladder volume is approximately 300 mL. Postvoid bladder volume is approximately 30 mL. Discussed near future in office cystoscopy and or urodynamics if symptoms persist and or worsen. She otherwise offers no issues or concerns at this time. [facility] Medical History Obesity (BMI 30-39.9) Carpal tunnel syndrome on both sides Pain in joint involving multiple sites Myalgia IUD (intrauterine device) in place Morbid obesity with BMI of 45.0-49.9, adult Urge incontinence Insomnia GERD without esophagitis Peripheral neuropathy Depression Anxiety Migraine Fibromyalgia Vitamin D deficiency Constipation Bilateral hand pain Surgical History H/O bilateral breast reduction surgery (~06/2012) History of section History of tubal ligation Family History Father No problems noted. Mother No problems noted. 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 needs: No Hearing needs: No Vision needs: Yes Female Reproductive History Menstrual Age of Menarche: 13 Review of Systems Const Reports as per HPI Eyes Reports no additional complaints ENT Reports no additional complaints Card Reports no additional complaints Resp Reports no additional complaints GI Reports as per HPI Reports as per HPI Musc Reports as per HPI Neuro Reports as per HPI Psych Reports as per HPI Endo Reports no additional complaints Jesus/Lymph Reports no additional complaints Aller/Immun Reports no additional complaints Physical Exam Const General: cooperative, healthy appearing, comfortable, no acute distress, well developed, alert and awake Orientation/consciousness: patient oriented x3 Limitations: no limitations HEENT Head: Yes normal to inspection, Yes normocephalic and Yes atraumatic Ears: hearing grossly normal bilaterally Eyes General: appearance normal, both eyes and all related structures Neck Neck: Yes normal visual inspection and Yes trachea midline Chest Chest palpation & inspection: normal inspection of the chest Resp Effort & Inspection: normal respiratory effort and able to speak in complete sentences Cardio Rate: regular rate GI Inspection: Yes normal to inspection General: Yes no CVA tenderness Back/Spine/Pelvis Back: no CVA tenderness Skin General skin exam: no rashes or lesions noted Neuro General: patient oriented x3 Extrem General: Yes normal to inspection Psych Appearance: grossly normal and well kempt Mental Status: mental status grossly normal Speech and movement: Normal speech and movement present and Clear speech present Affect: normal affect Attitude: cooperative Thought process: Normal thought process present Thought content: Normal thought content present Insight: Fair insight present (Psych) Judgement: Fair judgement present (Psych) Office Procedures Post Void Residual Post Residual Void Post Void Residual (PVR): 0 [id number] Void Residual by ultrasound Results AMB Urinalysis, Automated UA Leukoctes 70 [place]/uL Last Edit by Dg Cruz on 06/13/24 16:08 UA Nitrite Last Edit by Dg Cruz on 06/13/24 16:08 UA Urobilinogen 0.2 mg/dL Last Edit by Dg Cruz on 06/13/24 16:08 UA Protein 15 mg/dL Last Edit by Dg Cruz on 06/13/24 16:08 UA pH 6.0 Last Edit by Dg Cruz on 06/13/24 16:08 UA Blood 10 Davidson/uL Last Edit by Dg Cruz on 06/13/24 16:08 UA Specific Jbphh 1.030 Last Edit by Dg Cruz on 06/13/24 16:08 UA Ketone Last Edit by Dg Cruz on 06/13/24 16:08 UA Bilirubin 1 mg/dL Last Edit by Dg Perezstephanie on 06/13/24 16:08 UA Glucose 0 mg/dL Last Edit by Dg Perezstephanie on 06/13/24 16:08 Results Reviewed Results Reviewed: Laboratory Last Values Urine pH (Auto) 6.0 06/13/24 16:06 Specific Jbphh (Auto) 1.030 06/13/24 16:06 Urine Protein (Auto) 15 mg/dL 06/13/24 16:06 Glucose (UA)(Auto) 0 mg/dL 06/13/24 16:06 Urine Blood (Auto) 10 Davidson/uL 06/13/24 16:06 Urine Bilirubin (Auto) 1 mg/dL 06/13/24 16:06 Urine Urobilinogen (Auto) 0.2 mg/dL 06/13/24 16:06 Leukocyte Esterase (Auto) 70 Katlin/uL 06/13/24 16:06 Assessment & Plan Assessment & Plan (1) Lower urinary tract symptoms: Code(s): R39.9 - Unspecified symptoms and signs involving the genitourinary system Category: Medical (2) Overactive bladder: Code(s): N32.81 - Overactive bladder Category: Medical (3) Foul smelling urine: Code(s): R82.90 - Unspecified abnormal findings in urine Category: Medical Plan In office urinalysis results reviewed with the patient today; as noted above; will send for urine culture. PVR 0 mL. We discussed at length the importance of adequate hydration relation to lower urinary tract symptoms as well as overall health and well-being. Continue Myrbetriq. We discussed possible near future in office cystoscopy and or urodynamics if symptoms arise. Discussed bladder triggers/irritants. Follow-up in 3 months with PVR; or sooner with any issues, concerns, and or questions. Orders: Orders AMB Urinalysis Automated Today Z13.9 - Encounter for screening, unspecified AMB Post Void Residual by ultrasound Today R39.9 - Unspecified symptoms and signs involving the genitourinary system Urine Culture Today R32 - Unspecified urinary incontinence Medications: Changed From mirabegron ER (Myrbetriq) 25 mg PO DAILY 30 days 30 tabs 3RF N32.81 - Overactive bladder, R35.1 - Nocturia, R39.15 - Urgency of urination To mirabegron ER (Myrbetriq) 25 mg PO DAILY 90 days 90 tabs 3RF N32.81 - Overactive bladder, R35.1 - Nocturia, R39.15 - Urgency of urination Discontinued oxycodone-acetaminophen 5-325 mg Partial Fill upon patient request. Discontinued Reason: Patient Completed Course 1 tab PO Q6H PRN 5 tabs 0RF pain, severe Patient Instructions: The patient had an opportunity to ask questions regarding the treatment plan. All questions were answered. Physical exam, labs, and imaging were discussed and reviewed in detail. As well as risks, benefits, and discussion of treatment choices. No major barriers to understanding were identified. The patient expressed understanding and agreement with the above treatment plan. The patient was made aware they should contact our office by phone for worsening of their current condition, the appearance of new symptoms, or with any questions or concerns. Compliance is encouraged with any medications and follow up testing that is ordered. It is a privilege to be allowed the opportunity to participate in? your urological care.? Again, if you have any questions or concerns If you have any questions or concerns please do not hesitate to contact me. The office is [phone]. This note is constructed using voice recognition software. While every effort has been made to ensure accuracy pipe stem repairer errors may have been included. Yours sincerely, CHARLIE Flores Coding Level of Care Code Est Pt Level 3 (33772) Diagnoses Lower urinary tract symptoms R39.9 Overactive bladder N32.81 Foul smelling urine R82.90 CPT Codes Post Residual Void - PVR CPT Code: 87287-Kygy Void Residual by ultrasound ([id number])
== END 2024-06-13 16:35 | disposition home or self-care (01) ==
PROVIDERS: PCP Internal Medicine; Visit Provider Nurse Practitioner Family
DX: R39.9 Unspecified symptoms and signs involving the genitourinary system (principal); N32.81 Overactive bladder; R82.90 Unspecified abnormal findings in urine; Z13.9 Encounter for screening, unspecified
CPT/HCPCS: 99213

== ENCOUNTER 2024-06-13 15:39 | Outpatient (REF) | payer OTHER, SELFPAY | END 2024-06-13 15:40 | disposition home or self-care (01) | LOC: HO.LNP 15:39 | PROVIDERS: PCP Internal Medicine; Visit Provider Nurse Practitioner Family | DX: R32 Unspecified urinary incontinence (principal); R39.9 Unspecified symptoms and signs involving the genitourinary system; N32.81 Overactive bladder; R82.90 Unspecified abnormal findings in urine | CPT/HCPCS: 51798; 81003; 87086; 87088; 87147; 87186; 99212 ==

== ENCOUNTER → 2024-06-15 14:52 | Outpatient (BNVA) | payer OTHER, SELFPAY | PROVIDERS: PCP Internal Medicine | DX: Z47.89 Encounter for other orthopedic aftercare (principal); M25.532 Pain in left wrist; Z98.890 Other specified postprocedural states | CPT/HCPCS: 99212 ==

== ENCOUNTER 2024-07-27 14:18 | Outpatient (AMB) | payer OTHER, SELFPAY ==
--- NOTE | 2024-07-27 14:31 | A.OFFVIS_ITS ---
Intake Visit Reasons: PO LT CTR 05/05/24 AR-ROM/pain check Intake Note: Arminda is a 39 year old right hand dominant female who presents today post operatively s/p left carpal tunnel release DOS: 05/05/24 w/ Dr Yolanda Jackman. She has started OT and expresses she is finding improvement. She says OT is concerned about her pain and sensitivity. They told her this should not still be happening and she may need to have surgery again. She is here for another opinion. She expresses pain with lifting, carrying, turning, grasping, and gripping still. She is having extreme sensitivity at the site of her incision on left hand from her CTR. Allergies cashew nut Allergy (Severe, Verified 07/27/24 14:33) ANAPHYLAXIS cat dander Allergy (Severe, Verified 07/27/24 14:33) ITCHY SWELLING pregabalin [From Lyrica] Allergy (Severe, Verified 07/27/24 14:33) headaches,lower facial/chin swelling gabapentin Allergy (Intermediate, Verified 07/27/24 14:33) confusion, nausea house dust Allergy (Intermediate, Verified 07/27/24 14:33) Unknown HPI HPI PO LT CTR 05/05/24 AR-ROM/pain check: Details: Arminda is a 39 year old right hand dominant female who presents today post operatively s/p left carpal tunnel release DOS: 05/05/24 w/ Dr Yolanda Jackman. She has started OT and expresses she is finding improvement. She says OT is concerned about her pain and sensitivity. They told her this should not still be happening and she may need to have surgery again. She is here for another opinion. She expresses pain with lifting, carrying, turning, grasping, and gripping still. She is having extreme sensitivity at the site of her incision on left hand from her CTR. [facility] Medical History Obesity (BMI 30-39.9) Carpal tunnel syndrome on both sides Pain in joint involving multiple sites Myalgia IUD (intrauterine device) in place Morbid obesity with BMI of 45.0-49.9, adult Urge incontinence Insomnia GERD without esophagitis Peripheral neuropathy Depression Anxiety Migraine Fibromyalgia Vitamin D deficiency Constipation Bilateral hand pain Surgical History H/O bilateral breast reduction surgery (~06/2012) History of section History of tubal ligation Family History Father No problems noted. Mother No problems noted. 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 Neuro: Normal sensation of the tips of all digits of the left hand at this time Vascular: Cap refill brisk Pain: Patient reports tenderness to very gentle palpation around the incision site and the volar left wrist ROM: Patient is able to make a closed fist and extend all digits of the left hand fully Skin: Well-approximated well-healed surgical incision noted in the volar aspect patient's left wrist However, there is noted to be very mild edema surrounding incision site No erythema, ecchymosis, drainage No evidence of infection General: No ecchymosis, erythema, or evidence of infection. Psych: Appears grossly normal Affect normal Attitude cooperative Assessment & Plan Assessment & Plan (1) Carpal tunnel syndrome of left wrist: Code(s): G56.02 - Carpal tunnel syndrome, left upper limb Category: Medical Plan 1. Hypersensitivity of incision site status post carpal tunnel release DOS 05/05/2024 Patient appears to be recovering fairly well postoperatively Patient is educated about the typical recovery course At this time, patient was informed that her wound does appear well healed, and then desensitization is still the best treatment course for her Patient was amenable to this plan Patient will follow-up in 4-[address] Jackman for discussion options if she is still in a lot of pain, sooner with any acute concerns Coding Level of Care Code Est Pt Level 3 (57957) Diagnoses Carpal tunnel syndrome of left wrist G56.02
== END 2024-07-27 14:50 | disposition home or self-care (01) ==
LOC: HO.HOS 14:19
PROVIDERS: PCP Internal Medicine
DX: G56.02 Carpal tunnel syndrome, left upper limb (principal)
CPT/HCPCS: 99024

== ENCOUNTER → 2024-07-27 14:18 | Outpatient (BNVA) | payer OTHER, SELFPAY | PROVIDERS: PCP Internal Medicine | DX: M25.532 Pain in left wrist (principal); Z98.890 Other specified postprocedural states | CPT/HCPCS: 99212 ==

== ENCOUNTER 2024-08-15 16:49 | Outpatient (AMB) | payer OTHER, SELFPAY ==
[2024-08-15 16:50] VITALS: BP 118/66; PULSE 63; O2SAT 96; BMI 38.0
--- NOTE | 2024-08-15 16:50 | MHC.PC.OV ---
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 Accompanied by: Self / Same As Patient Allergies cashew nut Allergy (Severe, Verified 08/15/24 17:02) ANAPHYLAXIS cat dander Allergy (Severe, Verified 08/15/24 17:02) ITCHY SWELLING pregabalin [From Lyrica] Allergy (Severe, Verified 08/15/24 17:02) headaches,lower facial/chin swelling gabapentin Allergy (Intermediate, Verified 08/15/24 17:02) confusion, nausea house dust Allergy (Intermediate, Verified 08/15/24 17:02) Unknown Medication List - Last Reconciled 08/16/24 by Markell Vargas MD cholecalciferol (vitamin D3) 50 mcg PO DAILY 90 days epinephrine IM DIRECTED fluoxetine 20 mg PO DAILY galcanezumab-gnlm (Emgality Pen) 120 mg subcut .ONCE A MONTH hydroxyzine HCl 10 mg PO BID ibuprofen 600 mg PO Q6H PRN mirabegron ER (Myrbetriq) 25 mg PO DAILY 90 days ondansetron 4 mg PO Q6-8H PRN polyethylene glycol 3350 17 grams PO DAILY 30 days Tobacco use date assessed: 08/15/24 Dental Screening Dental Screen Date: 08/15/24 Did you have a dental visit in the last 12 months?: No Did you have a dental problem in the last 6 months where you did not have access to dental care?: No Was dental information given to patient?: No HPI 6 month f/u HPI Details Patient comes in today for her follow up visit States that she is still experiencing increased pain in her left wrist with increased sensitivity over the surgical site even though it has been over 3 months now since her left carpal tunnel release surgery - procedure was done on 05/05/2024 She has been attending OT for a while now but finds that the therapy helps only minimally States that the pain in her left hand also feels worse when exposed to cold temperatures so she had a very difficult time dealing with her symptoms during the winter She also continues to struggle with diffuse pain often from her fibromyalgia She is otherwise doing okay with her depression and mood disorder - states that her current medications help her cope and get by She is still experiencing on and off headaches (migraine) but states that her medications help keep them controlled and manageable She denies any chest pains, no increased SOB No nausea/vomiting, no abdominal pain No change in bowel habits noted [facility] Medical History Obesity (BMI 30-39.9) Carpal tunnel syndrome on both sides Pain in joint involving multiple sites Myalgia IUD (intrauterine device) in place Morbid obesity with BMI of 45.0-49.9, adult Urge incontinence Insomnia GERD without esophagitis Peripheral neuropathy Depression Anxiety Migraine Fibromyalgia Vitamin D deficiency Constipation Bilateral hand pain Surgical History H/O bilateral breast reduction surgery (~06/2012) History of section History of tubal ligation Family History Father No problems noted. Mother No problems noted. 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 1. Little interest or pleasure in doing things: several days 2. Feeling down, depressed, or hopeless: several days 3. Trouble falling or staying asleep, or sleeping too much: nearly every day 4. Feeling tired or having little energy: nearly every day 5. Poor appetite or overeating: nearly every day 6. Feeling bad about yourself - or that you are a failure or have let yourself or your family down: not at all 7. Trouble concentrating on things, such as reading the newspaper or watching television: not at all 8. Moving or speaking so slowly that other people could have noticed. Or the opposite - being so fidgety or restless that you have been moving around a lot more than usual: not at all 9. Thoughts that you would be better off or of hurting yourself in some way: not at all Total score: 11 Depression Screening Interpretation: Positive Depression Screening Follow-up: Existing condition and In treatment Depression Screening Done: Yes 84697 - PHQ-9 Billing: Yes Source: Developed by Drs. Celso Joshi, Mary Jo Jaramillo, Tu Powell and colleagues, with an educational brandon from [employer]. Thrive Questionnaire Date Thrive assessed: 08/15/24 I am a: Patient What is your living situation today?: I have a steady place to live Within the past 12 months, did the food you bought not last and you didn't have the money to get more?: Sometimes True Within the past 12 months, did you worry whether your food would run out before you got money to buy more?: Never true Do you have trouble paying for medicines?: No Do you have trouble getting transportation to medical appointments?: No Do you have trouble paying your heating and electricity bill?: No Do you have trouble taking care of your child, family member or friend?: No Do you have trouble with day-to-day activities such as bathing, preparing meals, shopping, managing finances, etc.?: Yes Are you currently unemployed and looking for a job?: No Are you interested in more education?: No Please select the resources that you would like help with: None Currently or been in a relationship where the following occur: No concerns reported THRIVE Score: 1 AUDIT C Alcohol Use Questionnaire (AUDIT-C) 1. How often do you have a drink containing alcohol?: Monthly or less 2. How many drinks containing alcohol do you have on a typical day when you are drinking?: 1 or 2 3. How often do you have six or more drinks on one occasion?: Never Total Score: 1 Score Reviewed/Action Taken: Yes ABDIRIZAK-7 AMB Questionnaire ABDIRIZAK-7 Date ABDIRIZAK - 7 assessed: 08/15/24 Feeling nervous, anxious, or on edge: 3 = Nearly every day Not being able to stop or control worryin = Several days Worrying too much about different things: 1 = Several days Trouble relaxin = More than half the days Being so restless that it is hard to sit still: 1 = Several days Becoming easily annoyed or irritable: 1 = Several days Feeling afraid as if something awful might happen: 2 = More than half the days Total ABDRIIZAK-7 score (0-4 normal; 5-9 mild; 10-14 moderate; 15-21 severe): 11 Source: Developed by Drs. Celso Joshi, Mary Jo Jaramillo, Tu Powell and colleagues, with an educational brandon from [employer]. Review of Systems Const Reports body aches (diffuse), Denies chills, Reports fatigue, Denies fever(s) and Reports headache(s) (on and off) ENT Denies dysphagia, Denies dizziness, Denies otalgia, Reports headache(s) (on and off), Reports neck pain, Denies odynophagia and Denies sore throat Card Denies chest pain, Denies rapid heart rate, Denies irregular heart rhythm, Denies palpitations and Denies dyspnea Resp Denies chest congestion, Denies cough and Denies dyspnea GI Denies abdominal pain, Denies constipation, Denies dysphagia, Denies heartburn, Denies diarrhea, Denies nausea, Denies odynophagia and Denies vomiting Denies difficulty voiding, Reports nocturia (on and off - symptoms better with Rx), Denies dysuria, Reports urinary incontinence (at times) and Denies urinary urgency Musc Details: (+) pain in both hands, worse in the left hand, with increased sensitivity over the left wrist surgical site Reports back pain, Reports myalgias (diffuse), Reports arthralgias (over multiple joints), Reports neck pain and Reports stiffness Skin/Breast Denies rash Neuro Denies dizziness, Reports headache(s) (on and off) and Denies paresthesias Psych Reports depression (controlled on Rx) Endo Reports fatigue and Denies palpitations Jesus/Lymph Denies easy bruising Physical exam (Primary Care) Vital Signs: Last Vital Signs Pulse 63 08/15/24 16:50 BP 118/66 08/15/24 16:50 Pulse Ox 96 08/15/24 16:50 Oxygen Delivery Method Room Air 08/15/24 16:50 BMI result Body Mass Index 38.0 Tobacco/Smoking Status: Tobacco use Status Tobacco use date assessed 08/15/24 08/15/24 16:55 Patient Tobacco Use Status Never used Tobacco 08/15/24 16:55 e-Cigarette/Vaping Use Never Used 08/15/24 16:55 PHQ-9: PHQ-9 Score PHQ-9: Total score 11 08/15/24 17:07 Depression Screening Interpretation: Positive Depression Screening Follow-up: Existing condition and In treatment Thrive Assessment: Date of Thrive Assessment Date Thrive assessed 08/15/24 08/15/24 16:55 Currently or been in a relationship where the following occur: No concerns reported Const General: no acute distress and alert HENMT Ears: TM's normal bilaterally and EAC's normal Throat: Yes posterior oropharynx normal and Yes tonsils normal (no TP congestion) Neck Neck: Yes no lymphadenopathy and Yes supple Thyroid: Thyroid normal Resp Auscultation: clear to auscultation bilaterally, no rales and no wheezes Cardio Rate: regular rate Rhythm: regular rhythm Heart sounds: no murmurs GI Palpation (GI): Soft to palpation and nontender Auscultation: normal bowel sounds General: Yes no CVA tenderness Back/Spine/Pelvis Back: no CVA tenderness and back tenderness (diffuse) Thoracic/Lumbar Spine: paraspinal muscle tenderness bilaterally (over the cervical and thoracolumbar spine (diffuse)) and lumbar spinal tenderness Skin Rashes: no rashes Extrem General: Yes no clubbing, cyanosis or edema Right upper extremity: shoulder/upper arm Details: tenderness (diffusely over the scapular area) Left upper extremity: shoulder/upper arm Details: tenderness (diffusely over the scapular areas) and wrist (increased tenderness over the volar aspect, opal at the surgical site) Coding Level of Care Code Est Pt Level 4 (89273) Diagnoses Chronic pain of left wrist M25.532; G89.29 Carpal tunnel syndrome on both sides G56.03 Vitamin D deficiency E55.9 Migraine without aura and without status migrainosus, not intractable G43.009 Migraine type: without aura Status migrainosus presence: without status migrainosus Intractability: not intractable Patellofemoral arthritis of left knee M17.12 Fibromyalgia M79.7 Gastritis without bleeding, unspecified chronicity, unspecified gastritis type K29.70 Gastritis type: unspecified gastritis Chronicity: unspecified Gastritis bleeding: without bleeding Constipation, unspecified constipation type K59.00 Constipation type: unspecified constipation type Overactive bladder N32.81 Insomnia, unspecified type G47.00 Insomnia type: unspecified Anxiety F41.9 Moderate episode of recurrent major depressive disorder F33.1 Depression Type: major depressive disorder Major depression recurrence: recurrent Active/Remission status: currently active Major depression episode severity: moderate Obesity (BMI 30-39.9) E66.9 Additional Codes PHQ-9 - 39459 - PHQ-9 Billing: Yes ([id number]) Assessment & Plan Assessment & Plan (1) Chronic pain of left wrist: Code(s): M25.532 - Pain in left wrist; G89.29 - Other chronic pain Category: Medical Plan: S/P carpal tunnel release surgery over 3 months ago, back on 05/05/2024 but patient states that she continues to experience increased pain with hypersensitivity noted over and around the surgical site She has been attending occupational therapy for a while now but she claims little to limited relief from therapy so far She has been seen by orthopedics for follow up a few times and has been urged to continue with occupational therapy and hopefully, her symptoms will start to ease up at some point but if she fails to respond and her pain persists, may need to consider alternative options, including referral to pain management (RSD?) Of note, there was mention of evidence of a possible Roosevelt Tammi anastomosis (considered a normal variant) seen on left on her most recent EMG/NCV done on 03/10/2024 - unknown at this time whether this has any significance or impact on her surgery outcome and current post-op symptoms (2) Carpal tunnel syndrome on both sides: Code(s): G56.03 - Carpal tunnel syndrome, bilateral upper limbs Category: Medical Plan: EMG and NCV on both upper extremities done back in 08/2009 revealed (+) mild CTS on the right upper extremity and mild to moderate CTS on the left side Repeat EMG and NCV done on the left upper extremity in 2022 showed (+) [id number] left median neuropathy across the carpal tunnel and mild left ulnar neuropathy across the cubital tunnel; the right side was not done as she was being evaluated for some work-related injury on her left arm/wrist back then As her hand and wrist symptoms appear to have progressed again at the time, patient was sent for repeat EMG and NCV of both upper extremities for reevaluation Repeat studies done on 03/10/2024 revealed (+) electrodiagnostic evidence for left moderate-severe and right very mild/borderline median neuropathy at the wrist, consistent with carpal tunnel syndrome. Remnants of a chronic left ulnar neuropathy with only slight slowing of conduction velocity across the elbow are noted and there is no electrodiagnostic evidence for brachial plexopathy or cervical radiculopathy Patient was referred to orthopedics for further evaluation and management and consideration for CTS surgery and she ultimately underwent left wrist CTR on 05/05/2024 (see above) (3) Vitamin D deficiency: Code(s): E55.9 - Vitamin D deficiency, unspecified Category: Medical Plan: Patient has been advised that her Vitamin-D level remains very low on her labs done back in March 2024 and she should start back on supplements for this Will start her on vitamin D3 2000 units QD (4) Migraine: Code(s): G43.909 - Migraine, unspecified, not intractable, without status migrainosus Category: Medical Qualifiers: Migraine type: without aura Status migrainosus presence: without status migrainosus Intractability: not intractable Qualified Code(s): G43.009 - Migraine without aura, not intractable, without status migrainosus Plan: Patient has failed prophylactic Tx with Amitriptyline, Propranolol and Topiramate in the past and has reportedly been advised by neurology a few years ago that her only available option left is Botox injection She has also failed to respond to symptomatic Tx with Naprosyn, Gabapentin, Lyrica and Aimovig, and Fioricet have also not helped Nurtec ODT PRN was prescribed for her recently but this was denied by her insurance She is now (back on) Emgality 120 mg SQ once a month and her migraine headaches appear to be well-controlled on her current Rx Continue Sumatriptan 50 mg PRN for symptomatic relief of acute headaches Follow up with neurology as scheduled (5) Patellofemoral arthritis of left knee: Code(s): M17.12 - Unilateral primary osteoarthritis, left knee Category: Medical Plan: Continue Ibuprofen 600 mg Q 6 hours PRN with food She has been referred to physical therapy for her knee in the past with some relief Follow up with orthopedics as scheduled or as needed (6) Fibromyalgia: Code(s): M79.7 - Fibromyalgia Category: Medical Plan: She is encouraged again on regular exercise and physical activity to help manage her fibromyalgia symptoms She was tried on Tramadol 50 mg TID PRN, Tizanidine 4 mg TID PRN, Duloxetine 60 mg QD, Amitriptyline 50 mg QD and Savella in the past but patient stopped taking these after a while, either due to side effects or poor response to Tx She was advised by rheumatology last year that she does not have any evidence of inflammatory joint disease and that her symptoms are mostly likely due to OA, and CTS in her hands, and she should follow up with orthopedics for these issues (7) Gastritis: Code(s): K29.70 - Gastritis, unspecified, without bleeding Category: Medical Qualifiers: Gastritis type: unspecified gastritis Chronicity: unspecified Gastritis bleeding: without bleeding Qualified Code(s): K29.70 - Gastritis, unspecified, without bleeding Plan: Dietary restrictions reinforced Continue Omeprazole 20 mg QD PRN (8) Constipation: Code(s): K59.00 - Constipation, unspecified Category: Medical Qualifiers: Constipation type: unspecified constipation type Qualified Code(s): K59.00 - Constipation, unspecified Plan: She is encouraged again on increased oral fluids and dietary fiber Continue Miralax 17 gm QD (9) Overactive bladder: Code(s): N32.81 - Overactive bladder Category: Medical Plan: Continue Myrbetriq 25 mg QD Follow up with urology as scheduled (10) Insomnia: Code(s): G47.00 - Insomnia, unspecified Category: Medical Qualifiers: Insomnia type: unspecified Qualified Code(s): G47.00 - Insomnia, unspecified Plan: Sleep hygiene reinforced (11) Anxiety: Code(s): F41.9 - Anxiety disorder, unspecified Category: Medical Plan: Continue Hydroxyzine 10 mg BID PRN (12) Depression: Code(s): F32.9 - Major depressive disorder, single episode, unspecified Category: Medical Qualifiers: Depression Type: major depressive disorder Major depression recurrence: recurrent Active/Remission status: currently active Major depression episode severity: moderate Qualified Code(s): F33.1 - Major depressive disorder, recurrent, moderate Plan: Continue Fluoxetine 20 mg QD Follow up with psychiatry as scheduled (13) Obesity (BMI 30-39.9): Code(s): E66.9 - Obesity, unspecified Category: Medical Plan: Reinforced diet/exercise as tolerated/lose weight Plan To return as scheduled in 6 months for her next annual physical examination She is advised to try and get her labs done (ordered) just before she comes in for her appointment in February 2025 Orders: Orders Lipid Panel 02/25/25 E78.00 - Pure hypercholesterolemia, unspecified, M79.7 - Fibromyalgia, Z00.00 - Encounter for general adult medical examination without abnormal findings TSH reflex Free T4 02/25/25 E78.00 - Pure hypercholesterolemia, unspecified, M79.7 - Fibromyalgia, Z00.00 - Encounter for general adult medical examination without abnormal findings UA CC w/rflx Micro + Cult 02/25/25 M79.7 - Fibromyalgia, R30.0 - Dysuria, Z00.00 - Encounter for general adult medical examination without abnormal findings Vitamin D 25-OH Total 02/25/25 E55.9 - Vitamin D deficiency, unspecified, M79.7 - Fibromyalgia, Z00.00 - Encounter for general adult medical examination without abnormal findings Vitamin B12 and Folate 02/25/25 E53.8 - Deficiency of other specified B group vitamins, M79.7 - Fibromyalgia, Z00.00 - Encounter for general adult medical examination without abnormal findings Complete Blood Count Auto Diff 02/25/25 D64.9 - Anemia, unspecified, M79.7 - Fibromyalgia, Z00.00 - Encounter for general adult medical examination without abnormal findings Comprehensive [place]. Panel Fast 02/25/25 E78.00 - Pure hypercholesterolemia, unspecified, M79.7 - Fibromyalgia, Z00.00 - Encounter for general adult medical examination without abnormal findings Erythrocyte Sedimentation Rate 02/25/25 M79.7 - Fibromyalgia, Z00.00 - Encounter for general adult medical examination without abnormal findings C Reactive Protein 02/25/25 M79.7 - Fibromyalgia, Z00.00 - Encounter for general adult medical examination without abnormal findings Medications: New cholecalciferol (vitamin D3) 50 mcg PO DAILY 90 days 90 caps 3RF E55.9 - Vitamin D deficiency, unspecified
== END 2024-08-15 17:17 | disposition home or self-care (01) ==
LOC: HO.HMCH 16:49
PROVIDERS: PCP Internal Medicine; Visit Provider Internal Medicine
DX: M25.532 Pain in left wrist (principal); G89.29 Other chronic pain; G56.03 Carpal tunnel syndrome, bilateral upper limbs; F33.1 Major depressive disorder, recurrent, moderate; E55.9 Vitamin D deficiency, unspecified; G43.009 Migraine without aura, not intractable, without status migrainosus; M17.12 Unilateral primary osteoarthritis, left knee; M79.7 Fibromyalgia; K29.70 Gastritis, unspecified, without bleeding; K59.00 Constipation, unspecified; N32.81 Overactive bladder; G47.00 Insomnia, unspecified

== ENCOUNTER → 2024-08-15 16:49 | Outpatient (BNVA) | payer OTHER, SELFPAY | PROVIDERS: PCP Internal Medicine; Visit Provider Internal Medicine | DX: M79.7 Fibromyalgia (principal); M25.532 Pain in left wrist; G89.29 Other chronic pain; G56.03 Carpal tunnel syndrome, bilateral upper limbs; E55.9 Vitamin D deficiency, unspecified; G43.009 Migraine without aura, not intractable, without status migrainosus; M17.12 Unilateral primary osteoarthritis, left knee; K29.70 Gastritis, unspecified, without bleeding; K59.00 Constipation, unspecified; N32.81 Overactive bladder; G47.00 Insomnia, unspecified; F41.9 Anxiety disorder, unspecified; F33.1 Major depressive disorder, recurrent, moderate; E66.9 Obesity, unspecified; Z68.38 Body mass index [BMI] 38.0-38.9, adult | CPT/HCPCS: 96127; 99212 ==

== ENCOUNTER 2024-08-31 15:19 | Outpatient (AMB) | payer OTHER, SELFPAY ==
--- NOTE | 2024-08-31 15:30 | A.OFFVIS_ITS ---
Vital Signs 08/31/24 15:31 Height 5 ft 6 in Weight 235 lb BMI 37.9 Intake Visit Reasons: OV LT CTR 05/05/24 AR- sensitivity check Intake Note: Arminda is a 39 year old right hand dominant female who presents today post operatively s/p left carpal tunnel release DOS: 05/05/24 w/ Dr Yolanda Jackman. States she continues to have numbness and tingling, difficulty gripping, grasping, lifting and holding items. States her pain is on her incision. Allergies cashew nut Allergy (Severe, Verified 08/31/24 15:33) ANAPHYLAXIS cat dander Allergy (Severe, Verified 08/31/24 15:33) ITCHY SWELLING pregabalin [From Lyrica] Allergy (Severe, Verified 08/31/24 15:33) headaches,lower facial/chin swelling gabapentin Allergy (Intermediate, Verified 08/31/24 15:33) confusion, nausea house dust Allergy (Intermediate, Verified 08/31/24 15:33) Unknown HPI HPI OV LT CTR 05/05/24 AR- sensitivity check: Details: Arminda is a 39 year old right hand dominant woman who returns with complaints of left wrist pain & hand numbness, S/P carpal tunnel release, DOS: 05/05/24. She says she has been attending OT hand therapy at an outside location in [place], to work on normalizing function & desensitization. She complains of pain & hypersensitivity mostly about her incision site and base of the palm. She says she has been touching & massaging about her wrist & incision site daily. She says her numbness and tingling is still present. Symptoms intermittent, but daily, primarily in her middle & ring fingers. She says when out in the cold she feels her entire hand goes numb, including the dorsal aspect of her hand. She denies any change in color of her fingers. This resolves when her hand warms up. She has a Hx of Fibromyalgia, anxiety, and depression. 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 Mother No problems noted. 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 needs: No Hearing needs: No Vision needs: Yes Female Reproductive History Menstrual Age of Menarche: 13 Review of Systems Const All systems reviewed & are unremarkable except as noted in HPI and below Physical Exam Vital Signs: BMI result Body Mass Index 37.9 Const General: no acute distress and alert Orientation/consciousness: patient oriented x3 Neuro General: patient oriented x3 Extrem Other: Evaluation of Left Upper Extremity: The patient is alert, oriented, and in no acute distress Neuro: Median, Ulnar, Radial nerves motor and sensory intact and sensation is normal to the tips of all digits today in clinic No thenar or intrinsic wasting Good APB muscle belly firing and good finger cross Good ABduction & ADduction Hypersensitivity to light touch all across the base of her palm, ~1 1/2cm ulnar to her incision, extending to ~2cm ulnar to her incision No hypersensitivity proximal to the wrist crease No hypersensitivity dorsal to her incision No evidence of CRPS Tenderness over the radial & ulnar pillars Vascular: Cap refill brisk ROM: She can make a fist and extend all her digits Surgical scar is well healed No erythema, swelling, or evidence of infection Nerve Conduction Study: IMPRESSION: 1. This is an abnormal study. 2. There is electrodiagnostic evidence for left moderate-severe and right very mild/borderline median neuropathy at the wrist, consistent with carpal tunnel syndrome. 3. Remnants of a chronic left ulnar neuropathy with only slight slowing of conduction velocity across the elbow. 4. There is no electrodiagnostic evidence for brachial plexopathy or cervical radiculopathy. 5. Evidence of possible Roosevelt Tammi anastomosis was seen on left, which is a normal anatomic variant. Johanna Romo MD, LYNDA 03/10/24 Psych Appearance: grossly normal Affect: normal affect Attitude: cooperative Assessment & Plan Assessment & Plan (1) Carpal tunnel syndrome of left wrist: Code(s): G56.02 - Carpal tunnel syndrome, left upper limb Category: Medical (2) Postoperative pillar pain: Comment: L wrist Code(s): G89.18 - Other acute postprocedural pain Category: Medical (3) Hyperalgesia: Comment: L wrist Code(s): R20.8 - Other disturbances of skin sensation Category: Medical (4) Fibromyalgia: Code(s): M79.7 - Fibromyalgia Category: Medical Plan Assessment & Plan: 1. Left pillar pain & hypersensitivity S/P carpal tunnel release, DOS: 05/05/24 2. Left Carpal tunnel syndrome, S/P release DOS: 05/05/24 Pre-operative symptoms intermittent, but daily, worse at night Now symptoms intermittent, but daily, worse at night in the middle & ring fingers I had a long discussion with her concerning this condition and recovery timeline I recommend she continue to attend OT hand therapy to work on desensitization. She currently attends a location in [place] I discussed activity modification, she should gently massage about her hand & wrist multiple times daily to work on desensitization. She should use her hand for light & medium weight activities and work on ROM exercises. She should slowly increase her weight limit as tolerated over the next few weeks. No operative interventions indicated, and she is happy about that If her symptoms persist, I may consider a referral to our OT hand therapists for evaluation. She will follow up 6-8 weeks with me to see how she is doing. We may discuss her ongoing symptoms of numbness at her next appointment. I may have her see our OT if she still has concerns. Of note she has a Hx of Fibromyalgia 3. Right carpal tunnel syndrome No complaints today 4. Left Cubital tunnel syndrome No complaints today Scribed for Yolanda Jackman MD by [facility] medical reimbursement specialist, on 08/31/24 at 3:35 PM, EST. Coding Level of Care Code Est Pt Level 4 (24888) Diagnoses Carpal tunnel syndrome of left wrist G56.02 Postoperative pillar pain G89.18 Hyperalgesia R20.8 Fibromyalgia M79.7
[2024-08-31 15:31] VITALS: BMI 37.9
== END 2024-08-31 15:54 | disposition home or self-care (01) ==
LOC: HO.HOS 15:20
PROVIDERS: PCP Internal Medicine; Visit Provider Orthopaedic Surgery
DX: G56.02 Carpal tunnel syndrome, left upper limb (principal); G89.18 Other acute postprocedural pain; R20.8 Other disturbances of skin sensation; M79.7 Fibromyalgia
CPT/HCPCS: 99214

== ENCOUNTER → 2024-08-31 15:19 | Outpatient (BNVA) | payer OTHER, SELFPAY | PROVIDERS: PCP Internal Medicine; Visit Provider Orthopaedic Surgery | DX: M25.532 Pain in left wrist (principal); R20.0 Anesthesia of skin; G89.18 Other acute postprocedural pain; R20.8 Other disturbances of skin sensation; M79.7 Fibromyalgia; Z98.890 Other specified postprocedural states | CPT/HCPCS: 99212 ==

== ENCOUNTER → 2024-10-16 00:37 | Outpatient (BNV) | payer OTHER, SELFPAY | PROVIDERS: Emergency Provider Internal Medicine; PCP Internal Medicine; Visit Provider Radiology Diagnostic Radiology | DX: K86.89 Other specified diseases of pancreas (principal); R07.9 Chest pain, unspecified | CPT/HCPCS: 71045; 74176 ==

== ENCOUNTER 2024-10-16 00:50 | Emergency (ER) | payer OTHER, SELFPAY ==
[2024-10-16] VITALS (8 sets, daily range): BP systolic 101–182; BP diastolic 56–100; PULSE 96–137; RESP 12–18; TEMP 36.9–39.1; O2SAT 93–97; BMI 40.7
--- NOTE | 2024-10-16 | ECG_ITS ---
Test Reason : CP Blood Pressure : */* mmHG Vent. Rate : 129 BPM Atrial Rate : 129 BPM P-R Int : 134 ms QRS Dur : 80 ms QT Int : 300 ms P-R-T Axes : 44 -8 4 degrees QTcB Int : 439 ms Sinus tachycardia Nonspecific ST and T wave abnormality Borderline ECG When compared with ECG of 22-May-2016 14:36, No significant change was found Referred By: Generic ED Physician Electronically Signed By: RALPH FROST
--- NOTE | ~2024-10-16 | CT_ITS ---
CLINICAL HISTORY: kidney stone ?? CT abdomen and pelvis without contrast Comparison: None Findings: Nonspecific linear densities of the lung bases. The unenhanced liver, gallbladder, spleen, adrenal glands, kidneys, ureters and bladder are unremarkable. Somewhat indistinct pancreas with questionable/minimal stranding. Uterus and adnexa are unremarkable. Well-positioned IUD. Moderate fecal retention throughout the colon. Normal appendix. No bowel obstruction. No acute osseous finding. Impression: No urinary calculus or obstructive uropathy. Questionable faint stranding about the pancreas, not definitive. Laboratory correlation for pancreatitis. Streaky bibasilar densities, nonspecific. Diffuse fecal retention. This document has been electronically signed by: Sloan Francois MD on 10/16/2024 06:30:35
--- NOTE | ~2024-10-16 | XR_ITS ---
CLINICAL HISTORY: chest tightness chills 1 view chest x-ray. Comparison: None Findings: The lungs appear clear. There is no consolidation, effusion, or nodule identified. Cardiomediastinal silhouette is within normal limits. IMPRESSION: No acute cardiopulmonary abnormality. This document has been electronically signed by: Anshu Curtis MD on 10/16/2024 02:58:20
[2024-10-16 01:20] LABS: Basophils Percent Auto 0.2 % (0-2); Hematocrit 36.2 % (37.0-47.0); Hemoglobin 12.9 g/dl (12.0-16.0); Imm Gran Abs Auto 0.07 X10*3/uL (0.00-0.03); Imm Gran Pct Auto 0.5 % (0.0-0.4); Lymphocytes Absolute Auto 0.2 X10*3/uL (1.2-4.9); Lymphocytes Percent Auto 1.7 % (20-40); MANUAL DIFF FLAG SCAN; Mean Corpuscular HGB Conc 35.6 g/dl (31.0-35.0); Mean Corpuscular Hemoglobin 31.7 pg (27.0-33.0); Mean Corpuscular Volume 88.9 fL (80.0-98.0); Monocytes Absolute Auto 0.2 X10*3/uL (0.1-1.2); Monocytes Percent Auto 1.2 % (2-11); Neutrophils Absolute Auto 13.3 x10*3/uL (2.0-8.3); Neutrophils Percent Auto 96.4 % (45-73); Platelet Count 149 X10*3/uL (160-400); Red Blood Count 4.07 X10*6/uL (4.20-5.50); Red Cell Distribution Width 12.7 % (11.0-16.0); SCAN SMEAR FLAG 1; White Blood Count 13.8 X10*3/uL (4.8-10.8)
[2024-10-16 01:37] LABS: SLIDE REVIEW VERIFIED
[2024-10-16 01:45] LABS: Troponin-I High Sensitivity < 2.7 ng/L (<3.5-17.0)
--- NOTE | 2024-10-16 01:45 | ED.GENADULT ---
HPI - General Adult General Chief complaint: General Medical Stated complaint: CHEST PAIN Time Seen by Provider: 10/16/24 01:15 Source: patient Mode of arrival: ambulatory Limitations: no limitations History of Present Illness ED Provider: HPI narrative: Patient is 39 years old with history of fibromyalgia been feeling weak with fever body ache for last 3 days also has some blood in the urine along with dysuria and frequency denies any cough or upper respiratory symptoms patient's symptoms got worse since yesterday evening denies any significant abdominal pain Related Data Home Medications ?Medication ?Instructions ?Recorded ?Confirmed epinephrine 0.3 mg/0.3 mL IM DIRECTED anaphylaxis 01/16/22 08/15/24 injection, auto-injector galcanezumab-gnlm 120 mg/mL 120 mg subcut .ONCE A MONTH 03/02/24 08/15/24 subcutaneous pen injector (Emgality Pen) fluoxetine 20 mg capsule 20 mg PO DAILY 03/17/24 08/15/24 hydroxyzine HCl 10 mg tablet 10 mg PO BID 03/17/24 08/15/24 Previous Rx's ?Medication ?Instructions ?Recorded ibuprofen 600 mg tablet 600 mg PO Q6H PRN pain #60 tabs 07/18/20 polyethylene glycol 3350 17 17 g PO DAILY 30 days #510 grams 03/03/23 gram/dose oral powder ondansetron 4 mg disintegrating 4 mg PO Q6-8H PRN nausea and 08/14/23 tablet vomiting #14 tabs mirabegron 25 mg tablet,extended 25 mg PO DAILY 90 days #90 tabs 06/13/24 release 24 hr (Myrbetriq) cholecalciferol (vitamin D3) 50 50 mcg PO DAILY 90 days #90 caps 08/15/24 mcg (2,000 unit) capsule bxggbeuvxq-yafzzubyrfamt-xwqkjegj 1 tab PO Q6H PRN headache #20 tabs 09/26/24 50 mg-325 mg-40 mg tablet cefuroxime axetil 500 mg tablet 500 mg PO BID 7 days #14 tabs 10/16/24 ibuprofen 600 mg tablet 600 mg PO Q6H PRN fever or pain 10/16/24 #30 tabs Allergies Allergy/AdvReac Type Severity Reaction Status Date / Time cashew nut Allergy Severe ANAPHYLAXIS Verified 10/16/24 00:56 cat dander Allergy Severe ITCHY Verified 10/16/24 00:56 SWELLING pregabalin [From Lyrica] Allergy Severe headaches,lower Verified 10/16/24 00:56 facial/chin swelling gabapentin Allergy Intermediate confusion, Verified 10/16/24 00:56 nausea house dust Allergy Intermediate Unknown Verified 10/16/24 00:56 Review of Systems Review of Systems: Yes all other systems are reviewed and are negative [facility] Past Medical History Medical History Obesity (BMI 30-39.9) Carpal tunnel syndrome on both sides Pain in joint involving multiple sites Myalgia IUD (intrauterine device) in place Morbid obesity with BMI of 45.0-49.9, adult Urge incontinence Insomnia GERD without esophagitis Peripheral neuropathy Depression Anxiety Migraine Fibromyalgia Vitamin D deficiency Constipation Bilateral hand pain Surgical History H/O bilateral breast reduction surgery (~06/2012) History of section History of tubal ligation Family History Family History Father No problems noted. Mother No problems noted. 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 Cognitive needs: No Hearing needs: No Vision needs: Yes Physical Exam ED Vital Signs: Vital Signs - 24 hr 10/16/24 00:55 10/16/24 01:55 10/16/24 02:42 Temperature 99.3 F 102.4 F H Pulse Rate 137 H 112 H 104 H Respiratory Rate 18 18 12 Blood Pressure 108/67 122/74 122/69 Pulse Oximetry 94 96 95 Oxygen Delivery Method Room Air Room Air Nasal Cannula Oxygen Flow Rate 2 10/16/24 03:33 10/16/24 03:48 10/16/24 04:22 Temperature 98.5 F Pulse Rate 100 97 98 Respiratory Rate 18 18 12 Blood Pressure 114/62 101/58 L 113/58 L Pulse Oximetry 93 94 96 Oxygen Delivery Method Nasal Cannula Nasal Cannula Nasal Cannula Oxygen Flow Rate 2 2 2 10/16/24 05:06 Temperature Pulse Rate 96 Respiratory Rate 16 Blood Pressure 106/56 L Pulse Oximetry 95 Oxygen Delivery Method Nasal Cannula Oxygen Flow Rate 2 BMI result Body Mass Index 40.7 Appearance: Alert. Oriented X3. No acute distress. Febrile Eyes: No pallor or icterus ENT: Pharynx normal. Oral Mucosa moist Neck: Normal inspection. Neck supple. CVS: Sinus tachycardia++. Pulses normal. Respiratory: No respiratory distress. Equal air entry bilateral, no wheezing/rales/rhonchi Abdomen: Soft and nontender. Bowel sounds are present, no mass palpable, no CVA tenderness Skin: Skin warm and dry. Normal skin color. Normal skin turgor. Extremities: No lower extremity edema. No calf tenderness Neuro: Oriented X 3. No motor deficit. No sensory deficit.No cerebellar signs , cranial nerves II-XII intact Medications Administered Discontinued Medications Generic Name Dose Route Start Last Admin Trade Name Freq PRN Reason Stop Dose Admin Acetaminophen 650 mg 10/16/24 01:57 10/16/24 02:10 Acetaminophen 325 Mg Tablet PO 10/16/24 01:58 650 mg ONCE ONE Administration Ceftriaxone Sodium 1 gm 10/16/24 02:13 10/16/24 02:39 Ceftriaxone Sodium 1 Gm Vial IVPUSH 10/16/24 02:14 1 gm ONCE ONE Administration Sodium Chloride 1,000 mls @ 999 mls/hr 10/16/24 01:51 10/16/24 03:30 Ns IV 10/16/24 02:51 Infused .Q1H1M ONE Infusion Magnesium Sulfate 2 gm in 50 mls @ 150 mls/hr 10/16/24 01:57 10/16/24 03:01 Magnesium Sulfate/H2o IV 10/16/24 02:16 Infused ONCE ONE Infusion Ketorolac Tromethamine 30 mg 10/16/24 01:51 10/16/24 02:11 Ketorolac Tromethamine 30 Mg/Ml Vial IVPUSH 10/16/24 01:52 30 mg ONCE ONE Administration Morphine Sulfate 4 mg 10/16/24 01:57 10/16/24 02:11 Morphine Sulfate 4 Mg/Ml Cartridge IVPUSH 10/16/24 01:58 4 mg ONCE ONE Administration Protocol Ondansetron HCl 4 mg 10/16/24 01:57 10/16/24 02:11 Ondansetron Hcl 4 Mg/2 Ml Vial IVPUSH 10/16/24 01:58 4 mg ONCE ONE Administration Medical Decision Making Medical Decision Making [facility] Narrative: Patient with diffuse body pain with slight hematuria workup showed patient has a UTI CT scan of the abdomen is negative also patient's magnesium level was 1.4 which was replaced patient is feeling much better at this time will discharge patient home Differential Diagnosis Differential Diagnoses: The differential diagnosis associated with the presentation includes UTI/viral syndrome/kidney stone/diverticulitis Lab Data [facility] Lab Attestation statement: I reviewed the patient's lab results. 10/16/24 01:13 10/16/24 01:13 Labs: Lab Results 10/16/24 10/16/24 10/16/24 Range/Units 01:13 02:19 02:32 WBC 13.8 H (4.8-10.8) X10*3/uL RBC 4.07 L (4.20-5.50) X10*6/uL Hgb 12.9 (12.0-16.0) g/dl Hct 36.2 L (37.0-47.0) % MCV 88.9 (80.0-98.0) fL MCH 31.7 (27.0-33.0) pg MCHC 35.6 H (31.0-35.0) g/dl RDW 12.7 (11.0-16.0) % Plt Count 149 L D (160-400) X10*3/uL MPV 11.0 (9.4-12.3) fL Immature Gran % (Auto) 0.5 H (0.0-0.4) % Neut % (Auto) 96.4 H (45-73) % Lymph % (Auto) 1.7 L (20-40) % Davison % (Auto) 1.2 L (2-11) % Eos % (Auto) 0.0 (0-4) % Baso % (Auto) 0.2 (0-2) % Lymph # (Auto) 0.2 L (1.2-4.9) X10*3/uL Davison # (Auto) 0.2 (0.1-1.2) X10*3/uL Eos # (Auto) 0.0 (0.0-0.4) X10*3/uL Baso # (Auto) 0.0 (0.0-0.2) X10*3/uL Abs Immat Gran (auto) 0.07 H (0.00-0.03) X10*3/uL Absolute Neuts (auto) 13.3 H (2.0-8.3) x10*3/uL Absolute Nucleated RBC 0.000 (0.0-0.012) X10*3/uL Nucleated RBC % (auto) 0.0 (0.0-0.2) /100WBC Smear Tech's Comments VERIFIED Sodium 142 (135-145) mmol/L Potassium 3.4 D (3.3-5.1) mmol/L Chloride 106 (96-108) mmol/L Carbon Dioxide 23 (22-29) mmol/L Anion Gap 16 (12-20) BUN 12 (9-16) mg/dL Creatinine 0.80 (0.5-1.4) mg/dL Estim Creat Clear Calc 109.0 Estimated GFR > 60 Random Glucose 115 (60-115) mg/dL Lactic Acid 1.7 (0.5-2.0) mmol/L Calcium 9.0 (8.4-10.2) mg/dL Magnesium 1.4 L* (1.6-2.6) mg/dL Total Bilirubin 0.8 (0.0-1.0) mg/dL AST 29 (5-31) U/L ALT 27 (0-31) U/L Alkaline Phosphatase 50 (39-117) U/L Troponin I High Sens < 2.7 (<3.5-17.0) ng/L Total Protein 6.9 (6.5-8.0) g/dL Albumin 4.2 (3.5-5.0) g/dL Lipase 12 (8-78) U/L Beta HCG, Quant < 2 mIU/mL Urine Color Dark Yellow Urine Appearance Clear Urine pH 7.5 (5.0-9.0) Ur Specific [place] 1.025 (1.005-1.025) Urine Protein 30 (1+) H (Neg-Trace) mg/dL Urine Glucose (UA) Negative (Negative) mg/dL Urine Ketones 40 (Negative) mg/dL Urine Blood Trace H (Negative) Urine Nitrite Positive H (Negative) Ur Leukocyte Esterase Moderate (2+) H (Negative) Urine RBC 6-10 H (0-2) /HPF Urine WBC 21-50 H (0-5) /HPF Ur Squamous Epith Cells 3-5 (0-2) /HPF Urine Bacteria 1+ (None Seen) Hyaline Casts 0-2 (0-2) /LPF Influenza Type A (PCR) NEGATIVE (Negative) Influenza Type B (PCR) NEGATIVE (Negative) RSV RNA Qual (PCR) NEGATIVE (Negative) SARS-CoV-2 RNA (RT-PCR) NEGATIVE (Negative) Independent Interpretation I performed an independent interpretation of an: EKG Interpretation: Normal sinus rhythm heart rate 129 beats per minute normal interval normal axis no acute STT wave changes no acute ischemia Discharge Plan Discharge Clinical Impression: UTI (urinary tract infection) Patient Disposition: Home, Self-Care Instructions: Urinary Tract Infection in Women (DC) Additional Instructions: Drink plenty of fluids Take antibiotic as prescribed Tylenol/Motrin for fever and body pain Follow with the PCP if not better Prescriptions: New ibuprofen 600 mg tablet 600 mg PO Q6H PRN (Reason: fever or pain) Qty: 30 0RF cefuroxime axetil 500 mg tablet 500 mg PO BID 7 Days Qty: 14 0RF No Action qznkgynksa-mzwgmnkputswn-ppok 50-325-40 mg tablet 1 tab PO Q6H PRN (Reason: headache) Qty: 20 0RF ondansetron 4 mg tablet,disintegrating 4 mg PO Q6-8H PRN (Reason: nausea and vomiting) Qty: 14 0RF polyethylene glycol 3350 17 gram/dose powder 17 g PO DAILY 30 Days Qty: 510 11RF ibuprofen 600 mg tablet 600 mg PO Q6H PRN (Reason: pain) Qty: 60 0RF Rx Instructions: take medication 1-3 days of your menses for cramping epinephrine 0.3 mg/0.3 mL auto-injector IM DIRECTED cholecalciferol (vitamin D3) 50 mcg (2,000 unit) capsule 50 mcg PO DAILY 90 Days Qty: 90 3RF Emgality Pen 120 mg/mL pen injector 120 mg subcut .ONCE A MONTH fluoxetine 20 mg capsule 20 mg PO DAILY hydroxyzine HCl 10 mg tablet 10 mg PO BID mirabegron [Myrbetriq] 25 mg tablet extended release 24 hr 25 mg PO DAILY 90 Days Qty: 90 3RF Interventions: ED Discharge Assessment Last Done: 10/16/24 06:52 Discharge Date/Time: 10/16/24 06:53 Print Language: Serbian
[2024-10-16 01:46] LABS: Alanine Aminotransferase 27 U/L (0-31); Albumin Level 4.2 g/dL (3.5-5.0); Anion Gap 16 (12-20); Aspartate Amino Transferase 29 U/L (5-31); Bilirubin Total 0.8 mg/dL (0.0-1.0); Blood Urea Nitrogen 12 mg/dL (9-16); Carbon Dioxide 23 mmol/L (22-29); Chloride 106 mmol/L (96-108); Estimated Glomerular Filt Rate > 60; Glucose Random 115 mg/dL (60-115); Lipase 12 U/L (8-78); Magnesium 1.4 mg/dL (1.6-2.6); Potassium 3.4 mmol/L (3.3-5.1); Sodium 142 mmol/L (135-145); Total Protein 6.9 g/dL (6.5-8.0)
[2024-10-16 01:52] LABS: HCG Quantitative < 2 mIU/mL
[2024-10-16 01:55] LABS: Influenza A PCR NEGATIVE (Negative); Influenza B PCR NEGATIVE (Negative); Resp Syncy Virus RNA Qual PCR NEGATIVE (Negative); SARS COV2 PCR INHOUSE NEGATIVE (Negative)
[2024-10-16] MEDS: Acetaminophen 325 MG TABLET 650 MG PO (02:10)
[2024-10-16] MEDS: Morphine Sulfate 4 MG/ML CARTRIDGE IVPUSH (02:11)
[2024-10-16] MEDS: ondansetron HCL 4 MG/2 ML VIAL IVPUSH (02:11)
[2024-10-16] MEDS: Magnesium Sulfate/H2O 2 GM/50 ML PIGGYBACK IV (02:11)
[2024-10-16] MEDS: 0.9 % Sodium Chloride 1,000 ML 999 ML IV (02:11)
[2024-10-16] MEDS: Ketorolac Tromethamine 30 MG/ML VIAL IVPUSH (02:11)
[2024-10-16 02:26] LABS: Appearance Urine Clear; Color Urine Dark Yellow; Glucose Urine UA Negative (Negative); Leukocyte Esterase Urine Moderate (2+) (Negative); Nitrite Urine Positive (Negative); PH 7.5 (5.0-9.0); Specific Gravity - Urine 1.025 (1.005-1.025); UMIC TRIGGER UACC YES; Urine Blood Trace (Negative); Urine Ketones 40 mg/dL (Negative); Urine Protein 30 (1+) mg/dL (Neg-Trace)
--- NOTE | 2024-10-16 02:26 | PC.NURSE ---
Md Mg ordered ceftriaxone iv. this RN verified if blood cultures/lactic are needed, , verbal order placed for BC and lactic
[2024-10-16] MEDS: cefTRIAXone sodium 1 GM VIAL IVPUSH (02:39)
--- NOTE | 2024-10-16 02:43 | PC.NURSE ---
pt dropped down to 86% room air when sleeping after morphine administration, placed on 2L via NC and up to 96%
[2024-10-16 02:57] LABS: Lactic Acid 1.7 mmol/L (0.5-2.0)
[2024-10-16 03:05] LABS: Alkaline Phosphatase 50 U/L (39-117)
[2024-10-16 03:16] LABS: Bacteria Urine 1+ (None Seen); Hyaline Casts Urine 0-2 /LPF (0-2); UACC Culture Trigger YES; WBC Urine 21-50 /HPF (0-5)
== END 2024-10-16 06:53 | disposition home or self-care (01) ==
PROVIDERS: Emergency Provider Internal Medicine; PCP Internal Medicine
DX: N39.0 Urinary tract infection, site not specified (principal); R31.9 Hematuria, unspecified; R53.1 Weakness; R00.0 Tachycardia, unspecified; Z03.818 Encounter for observation for suspected exposure to other biological agents ruled out
CPT/HCPCS: 0241U; 36415; 71045; 74176; 80053; 81001; 83605; 83690; 83735; 84484; 84702; 85025; 87040; 87086; 93005; 96361; 96374; 96375; 99285; J0696; J1885; J2270; J2405; J3475

== ENCOUNTER → 2024-10-16 00:54 | Outpatient (BNV) | payer OTHER, SELFPAY | PROVIDERS: Emergency Provider Internal Medicine; PCP Internal Medicine; Visit Provider Internal Medicine | DX: R00.0 Tachycardia, unspecified (principal) | CPT/HCPCS: 93010 ==

== ENCOUNTER 2024-11-29 13:46 | Outpatient (AMB) | payer OTHER, SELFPAY ==
--- NOTE | 2024-11-29 14:18 | MHC.OFFVIS ---
Intake Visit Reasons: OV-LT [facility] 05/05/24 AR Intake Note: Arminda is a 39 year old right hand dominant female who presents today post operatively s/p left carpal tunnel release DOS: 05/05/24 w/ Dr Yolanda Jackman. At her last visit she was advise to do O.T to work on desensitization. She was advise to use her hand for light & medium weight activities and work on ROM exercises and slowly increase her weight limit as tolerated over the next few weeks. Currently states she has numbness and tingling but is better than before. She is still having difficulty lifting and holding items for a prolong time. Allergies cashew nut Allergy (Severe, Verified 11/29/24 14:23) ANAPHYLAXIS cat dander Allergy (Severe, Verified 11/29/24 14:23) ITCHY SWELLING pregabalin (From Lyrica) Allergy (Severe, Verified 11/29/24 14:23) headaches,lower facial/chin swelling gabapentin Allergy (Intermediate, Verified 11/29/24 14:23) confusion, nausea house dust Allergy (Intermediate, Verified 11/29/24 14:23) Unknown HPI HPI OV-LT CTR 05/05/24 AR: Details: Arminda is a 39 year old right hand dominant woman who initially had significant problems with hypersensitivity and pillar pain following her carpal tunnel release DOS: 05/05/24. She has continued to attend OT hand therapy in [place]. She says she still gets pain in her hand and she still feels like she can not rely on her left hand for strength, but she feels like she has noticed some good improvement since her last visit. Specifically, she feels like she has has had improvement with her hypersensitivity and pain. She now notes that she only gets numbness and tingling occasionally. The problem she had with nighttime numbness and tingling before surgery are significantly improved. She has a Hx of Fibromyalgia, anxiety, and depression. 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 Mother No problems noted. 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 needs: No Hearing needs: No Vision needs: Yes Female Reproductive History Menstrual Age of Menarche: 13 Physical Exam Const General: no acute distress and alert Orientation/consciousness: patient oriented x3 Neuro General: patient oriented x3 Extrem Other: Evaluation of Left Upper Extremity: The patient is alert, oriented, and in no acute distress Neuro: Median, Ulnar, Radial nerves motor and sensory intact and sensation is normal to the tips of all digits today in clinic No thenar or intrinsic wasting Good APB muscle belly firing and good finger cross Good ABduction & ADduction We can now touch her skin with no hypersensitivity about the incision or proximal palm No evidence of CRPS Mild tenderness over the radial & ulnar pillars Vascular: Cap refill brisk ROM: She can make a fist and extend all her digits Surgical scar is well healed No erythema, swelling, or evidence of infection Nerve Conduction Study: IMPRESSION: 1. This is an abnormal study. 2. There is electrodiagnostic evidence for left moderate-severe and right very mild/borderline median neuropathy at the wrist, consistent with carpal tunnel syndrome. 3. Remnants of a chronic left ulnar neuropathy with only slight slowing of conduction velocity across the elbow. 4. There is no electrodiagnostic evidence for brachial plexopathy or cervical radiculopathy. 5. Evidence of possible Roosevelt Tammi anastomosis was seen on left, which is a normal anatomic variant. Johanna Romo MD, LYNDA 03/10/24 Psych Appearance: grossly normal Affect: normal affect Attitude: cooperative Assessment & Plan Assessment & Plan (1) Postoperative pillar pain: Comment: L wrist Code(s): G89.18 - Other acute postprocedural pain Category: Medical (2) Hyperalgesia: Comment: L wrist Code(s): R20.8 - Other disturbances of skin sensation Category: Medical (3) Fibromyalgia: Code(s): M79.7 - Fibromyalgia Category: Medical Plan Assessment & Plan: 1. Left pillar pain & hypersensitivity S/P carpal tunnel release, DOS: 05/05/24 2. Left Carpal tunnel syndrome, S/P release DOS: 05/05/24 Pre-operative symptoms intermittent, but daily, worse at night Good resolution of symptoms. Hand numbness is now only occasional. She has shown some improvement in her hypersensitivity pain and symptoms of numbness, which she is happy to see She says that she continues to attend OT hand therapy about once a week. Since her hypersensitivity is improved, I recommend that she talked to them about working on strengthening & normalizing function. She currently attends a location in [place] I discussed activity modification, she should continue to work on her OT exercises at home, No operative interventions indicated, and she is happy about that She will follow up prn, and is happy with the plan Of note she has a Hx of Fibromyalgia, anxiety, and depression 3. Right carpal tunnel syndrome No complaints today 4. Left Cubital tunnel syndrome No complaints today Scribed for Yolanda Jackman MD by Prince Broussard medical reception specialist, on 11/29/24 at 2:30 PM, EST. Coding Level of Care Code Est Pt Level 3 (09036) Diagnoses Postoperative pillar pain G89.18 Hyperalgesia R20.8 Fibromyalgia M79.7
== END 2024-11-29 15:21 | disposition home or self-care (01) ==
LOC: HO.HOS 13:46
PROVIDERS: PCP Internal Medicine; Visit Provider Orthopaedic Surgery
DX: G89.18 Other acute postprocedural pain (principal); R20.8 Other disturbances of skin sensation; M79.7 Fibromyalgia
CPT/HCPCS: 99213

== ENCOUNTER → 2024-11-29 13:46 | Outpatient (BNVA) | payer OTHER, SELFPAY | PROVIDERS: PCP Internal Medicine; Visit Provider Orthopaedic Surgery | DX: M79.7 Fibromyalgia (principal); R20.8 Other disturbances of skin sensation; G89.18 Other acute postprocedural pain | CPT/HCPCS: 99212 ==

== ENCOUNTER 2024-11-30 14:37 | Outpatient (AMB) | payer OTHER, SELFPAY ==
--- NOTE | 2024-11-30 14:41 | MHC.OFFVIS ---
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 Intake Note: annual does not have any complaints Topology Professor Required: No Information Interpreted: non-clinical & clinical Case Filler: Case Filler Present (Kellie) Accompanied by: Self / Same As Patient Allergies cashew nut Allergy (Severe, Verified 11/29/24 14:23) ANAPHYLAXIS cat dander Allergy (Severe, Verified 11/29/24 14:23) ITCHY SWELLING pregabalin (From Lyrica) Allergy (Severe, Verified 11/29/24 14:23) headaches,lower facial/chin swelling gabapentin Allergy (Intermediate, Verified 11/29/24 14:23) confusion, nausea house dust Allergy (Intermediate, Verified 11/29/24 14:23) Unknown Medication List - Last Reconciled 11/30/24 by Beverly Corona LPN [id number]-[id number] 50-325-40 mg 1 tab PO Q6H PRN cefuroxime axetil 500 mg PO BID 7 days cholecalciferol (vitamin D3) 50 mcg PO DAILY 90 days epinephrine IM DIRECTED fluoxetine 20 mg PO DAILY galcanezumab-gnlm (Emgality Pen) 120 mg subcut .ONCE A MONTH hydroxyzine HCl 10 mg PO BID ibuprofen 600 mg PO Q6H PRN ibuprofen 600 mg PO Q6H PRN mirabegron ER (Myrbetriq) 25 mg PO DAILY 90 days ondansetron 4 mg PO Q6-8H PRN polyethylene glycol 3350 17 grams PO DAILY 30 days Is last menstrual period known: Yes Post menopausal: No Patient : No Followed by:: Beverly Corona LPN Do you need a note to return to daycare/school/sports/work: No HPI Comments Details: Patient is a premenopausal woman presenting for annual examination. 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 Mirena user for cycle control, happy w/use. Currently is sexually active. She denies vaginal itching or irritation. STI screening offered; she accepts. She tries to eat healthy and stays active with exercise. Denies family history of breast, ovarian or colon cancer. Last pap smear 2020, negative. [facility] Medical History (Updated 11/30/24 @ 15:37 by Cookie Barba, CNM) Obesity (BMI 30-39.9) Carpal tunnel syndrome on both sides Pain in joint involving multiple sites Myalgia IUD (intrauterine device) in place Morbid obesity with BMI of 45.0-49.9, adult Urge incontinence Insomnia GERD without esophagitis Peripheral neuropathy Depression Anxiety Migraine Fibromyalgia Vitamin D deficiency Constipation Bilateral hand pain Surgical History H/O bilateral breast reduction surgery (~06/2012) History of section History of tubal ligation Family History Father No problems noted. Mother No problems noted. 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 needs: No Hearing needs: No Vision needs: Yes Female Reproductive History Menstrual Age of Menarche: 13 control method: progestin IUCD Total pregnancies: 2 Number of Living Children: 2 Date of last pap smear: 07/18/20 History of abnormal pap smear: No History of STI: No History of abnormal mammogram: No (n/a) Review of Systems Const All systems reviewed & are unremarkable except as noted in HPI and below Reports as per HPI Eyes Reports no additional complaints ENT Reports no additional complaints Card Reports no additional complaints Resp Reports no additional complaints GI Reports as per HPI and Reports no additional complaints Reports as per HPI Musc Reports no additional complaints Skin/Breast Reports as per HPI Neuro Reports no additional complaints Psych Reports no additional complaints Endo Reports no additional complaints Jesus/Lymph Reports no additional complaints Aller/Immun Reports no additional complaints Physical Exam Vital Signs: Last Vital Signs BP 100/64 11/30/24 14:49 BMI result Body Mass Index 36.0 Const General: cooperative, healthy appearing, no acute distress, well developed and alert Orientation/consciousness: patient oriented x3 HEENT Head: Yes normal to inspection Eyes General: appearance normal, both eyes and all related structures Neck Neck: Yes normal visual inspection Thyroid: Thyroid normal Chest Chest palpation & inspection: normal inspection of the chest and other (no puckering, dimpling, peau de orange, retraction, discharge, masses) Breast/axilla inspection: normal inspection of the breasts Breast/axilla palpation: normal palpation of the breasts Resp Effort & Inspection: normal respiratory effort GI Inspection: Yes normal to inspection Palpation (GI): Soft to palpation Rectal Exam - Female: deferred General: Yes bladder normal to palpation External Female Exam: normal external appearance and normal appearance of the urethra Speculum Exam - Vagina: normal appearance of the vagina, normal palpation and normal vaginal discharge Speculum Exam - Cervix: normal palpation and Other cervical findings present (IUD strings teased down with a Cytobrush) Bimanual exam- vagina & uterus: normal bimanual exam, normal palpation, uterine size normal, bladder normal to palpation, normal palpation and non-tender Bimanual Exam- Adnexa, other: no masses Skin General skin exam: no rashes or lesions noted Rashes: no rashes Neuro General: patient oriented x3 Cognition (Neuro): normal cognition Extrem General: Yes normal to inspection Psych Attitude: cooperative Thought process: Normal thought process present Assessment & Plan Assessment & Plan (1) Encounter for well woman exam with routine gynecological exam: Code(s): Z01.419 - Encounter for gynecological examination (general) (routine) without abnormal findings Category: Medical Plan: Discussed: Current recommendations for pap smears per ASCCP guidelines. Breast awareness and periodic breast exams. Maintain a healthy lifestyle including a well balanced diet and routine exercise. Use condoms for STI prevention. Patient verbalizes understanding and agrees to the plan of care. She was given opportunity to ask questions and all questions were answered to the best of my ability. 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 This note is constructed using voice recognition software. While every effort has been made to ensure accuracy, magnetic tape winder errors may have been included. (2) Possible exposure to STD: Code(s): Z20.2 - Contact with and (suspected) exposure to infections with a predominantly sexual mode of transmission Plan GC chlamydia and BV panel obtained. Lab work ordered. Await results for final plan of care. The patient expressed understanding and agreement with the plan of care. All of her questions and concerns were addressed to the best of my ability. Orders: Orders HIV Ab/Ag Today Z20.2 - Contact with and (suspected) exposure to infections with a predominantly sexual mode of transmission Hepatitis C Antibody Reflex Today Z20.2 - Contact with and (suspected) exposure to infections with a predominantly sexual mode of transmission Hepatitis B Core Antibody Today Z20.2 - Contact with and (suspected) exposure to infections with a predominantly sexual mode of transmission Syphilis Screen Today Z20.2 - Contact with and (suspected) exposure to infections with a predominantly sexual mode of transmission Bacterial Vaginosis Panel Today Z11.3 - Encounter for screening for infections with a predominantly sexual mode of transmission CT NG by PCR Vag/Cerv Today Z11.3 - Encounter for screening for infections with a predominantly sexual mode of transmission Coding Level of Care Code Est Pt Prev Care [id number]([id number]) Diagnoses Encounter for well woman exam with routine gynecological exam Z01.419 Possible exposure to STD Z20.2
[2024-11-30 14:49] VITALS: BP 100/64; BMI 36.0
== END 2024-11-30 16:13 | disposition home or self-care (01) ==
LOC: HO.HWS 14:37
PROVIDERS: PCP Internal Medicine; Visit Provider Advanced Practice Midwife
DX: Z01.419 Encounter for gynecological examination (general) (routine) without abnormal findings (principal); Z20.2 Contact with and (suspected) exposure to infections with a predominantly sexual mode of transmission
CPT/HCPCS: 99395; 99459

== ENCOUNTER 2024-11-30 14:37 | Outpatient (REF) | payer OTHER, SELFPAY ==
[2024-11-30 20:12] LABS: Bacterial Vaginosis PCR POSITIVE (Negative); Candida Group PCR NOT DETECTED (Not Detect); Candida glab krusei PCR NOT DETECTED (Not Detect); Trichomonas vaginalis PCR NOT DETECTED (Not Detect)
[2024-11-30 21:04] LABS: CT PCR NOT DETECTED (Not Detect.); NG PCR NOT DETECTED (Not Detect.)
== END 2024-11-30 14:38 | disposition home or self-care (01) ==
LOC: HO.LNP 14:37
PROVIDERS: PCP Internal Medicine; Visit Provider Advanced Practice Midwife
DX: Z01.419 Encounter for gynecological examination (general) (routine) without abnormal findings (principal); Z20.2 Contact with and (suspected) exposure to infections with a predominantly sexual mode of transmission; Z11.3 Encounter for screening for infections with a predominantly sexual mode of transmission; Z11.59 Encounter for screening for other viral diseases; Z79.899 Other long term (current) drug therapy
CPT/HCPCS: 36415; 81515; 86704; 86780; 86803; 87389; 87491; 87591; 99395

== ENCOUNTER 2024-11-30 15:33 | Outpatient (REF) | payer OTHER, SELFPAY ==
[2024-12-01 07:55] LABS: Syphilis Screen Nonreactive (Nonreactive)
[2024-12-01 08:15] LABS: HBc Num1 0.09 S/CO (0.00-0.79); HIV Num 1 0.09 S/CO (0.00-0.99); ~HepC Num1 0.12 S/CO (0.00-0.79); ~Hepatitis C Antibody Nonreactive (Nonreactive)
== END 2024-11-30 15:34 | disposition home or self-care (01) ==
LOC: HO.CHCLDS 15:33
PROVIDERS: Visit Provider Advanced Practice Midwife
DX: Z13.89 Encounter for screening for other disorder (principal)
CPT/HCPCS: 36415; 86704; 86780; 86803; 87389

== ENCOUNTER 2024-12-05 15:49 | Outpatient (AMB) | payer OTHER, SELFPAY ==
--- NOTE | 2024-12-05 15:52 | A.OFFVIS_ITS ---
Intake Visit Reasons: 3m/PVR Intake Note: Patient is present for 3M/PVR Urology Medication:MIRABEGRON Antibiotic Allergy:NONE Blood Thinner:NONE TODAY'S PVR: 0ML'S Project Landscape Architect Required: No Allergies cashew nut Allergy (Severe, Verified 12/05/24 20:21) ANAPHYLAXIS cat dander Allergy (Severe, Verified 12/05/24 20:21) ITCHY SWELLING pregabalin (From Lyrica) Allergy (Severe, Verified 12/05/24 20:21) headaches,lower facial/chin swelling gabapentin Allergy (Intermediate, Verified 12/05/24 20:21) confusion, nausea house dust Allergy (Intermediate, Verified 12/05/24 20:21) Unknown Medication List - Last Reconciled 12/05/24 by CHARLIE Flores wzfipmrflx-sudafrvttsoio-arnf 50-325-40 mg 1 tab PO Q6H PRN cholecalciferol (vitamin D3) 50 mcg PO DAILY 90 days epinephrine IM DIRECTED fluoxetine 20 mg PO DAILY hydroxyzine HCl 10 mg PO BID ibuprofen 600 mg PO Q6H PRN ibuprofen 600 mg PO Q6H PRN metronidazole 500 mg PO BID 7 days mirabegron ER (Myrbetriq) 25 mg PO DAILY 90 days ondansetron 4 mg PO Q6-8H PRN polyethylene glycol 3350 17 grams PO DAILY 30 days HPI Comments Details: Arminda is a pleasant 39-year-old female patient of Dr. Vargas. She has a past medical history of migraines, anxiety, depression, peripheral neuropathy, constipation, GERD, insomnia, fibromyalgia, constipation, and carpal tunnel syndrome. She presents to the office today for follow-up of her lower urinary tract symptoms. In discussion with the patient today she reports having completed Macrobid as prescribed during last office visit. Of note, during last office visit urine was sent for urine culture and noted E coli and group B strep. She reports she had been feeling and doing well up until the beginning of October at which time she seeked emergency room care for increased weakness, fevers, and body aches. She reports she had also been experiencing episodes of dysuria and urinary frequency. In review of patient's chart it appears she was noted to have positive nitrates and low magnesium. It appears magnesium was replaced and patient was sent home on cefuroxime mean 500 mg b.i.d. for 7 days. She reports having completed antibiotic therapy as prescribed. In review of patient's chart it appears urine culture from ER visit 11/[address] 11/02 CT of the abdomen and pelvis without contrast noted no urinary calculus or obstructive uropathy. Diffuse fecal retention. She reports having followed up with her shearer printed circuit boards for her annual Pap smear at which time she was noted to have BV in his currently on metronidazole. She does continue to experience episodes of urinary urgency and frequency. She is sexually active. We did discussed potential causes lower urinary tract symptoms patient is experiencing as well as further treatment options and risks and benefits of these treatment options. In office urinalysis results reviewed with the patient today. She denies nocturia, hematuria, dysuria, changes to urinary stream, flank pain, fever, and or chills. She does have a history of positive microgen results 10/31 and 04/02 and has since completed antibiotic therapy. She has had a history of incomplete bladder emptying and has been on terazosin however has since come off the medication. She also has a history of trialing oxybutynin and VESIcare for ongoing lower urinary tract symptoms however did not find these medications to be helpful. Previous workup has also included a retroperitoneal ultrasound 09/30 noting bilateral kidneys with no calculi, lesions, or hydronephrosis noted. The bladder is well distended and normal. Bilateral ureteral jets are demonstrated. Prevoid bladder volume is approximately 300 mL. Postvoid bladder volume is approximately 30 mL. Discussed near future in office cystoscopy and or urodynamics if symptoms persist and or worsen. She otherwise offers no issues or concerns at this time. [facility] Medical History Obesity (BMI 30-39.9) Carpal tunnel syndrome on both sides Pain in joint involving multiple sites Myalgia IUD (intrauterine device) in place Morbid obesity with BMI of 45.0-49.9, adult Urge incontinence Insomnia GERD without esophagitis Peripheral neuropathy Depression Anxiety Migraine Fibromyalgia Vitamin D deficiency Constipation Bilateral hand pain Surgical History H/O bilateral breast reduction surgery (~06/2012) History of section History of tubal ligation Family History Father No problems noted. Mother No problems noted. 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 needs: No Hearing needs: No Vision needs: Yes Female Reproductive History Menstrual Age of Menarche: 13 Review of Systems Const Reports as per HPI Eyes Reports no additional complaints ENT Reports no additional complaints Card Reports no additional complaints Resp Reports no additional complaints GI Reports as per HPI Reports as per HPI Musc Reports as per HPI Neuro Reports as per HPI Psych Reports as per HPI Endo Reports no additional complaints Jesus/Lymph Reports no additional complaints Aller/Immun Reports no additional complaints Physical Exam Const General: cooperative, healthy appearing, comfortable, no acute distress, well developed, alert and awake Orientation/consciousness: patient oriented x3 Limitations: no limitations HEENT Head: Yes normal to inspection, Yes normocephalic and Yes atraumatic Ears: hearing grossly normal bilaterally Eyes General: appearance normal, both eyes and all related structures Neck Neck: Yes normal visual inspection and Yes trachea midline Chest Chest palpation & inspection: normal inspection of the chest Resp Effort & Inspection: normal respiratory effort and able to speak in complete sentences Cardio Rate: regular rate GI Inspection: Yes normal to inspection General: Yes no CVA tenderness Back/Spine/Pelvis Back: no CVA tenderness Skin General skin exam: no rashes or lesions noted Neuro General: patient oriented x3 Extrem General: Yes normal to inspection Psych Appearance: grossly normal and well kempt Mental Status: mental status grossly normal Speech and movement: Normal speech and movement present and Clear speech present Affect: normal affect Attitude: cooperative Thought process: Normal thought process present Thought content: Normal thought content present Insight: Fair insight present (Psych) Judgement: Fair judgement present (Psych) Office Procedures Post Void Residual Post Residual Void Post Void Residual (PVR): 0 [id number]-Mbrc Void Residual by ultrasound Results AMB Urinalysis, Automated UA Leukoctes 70 [place]/uL Last Edit by RADHA Farah on 12/05/24 16:28 UA Nitrite Negative Last Edit by Ariadne Mcknight [facility] on 12/05/24 16:28 UA Urobilinogen 0.2 mg/dL Last Edit by Ariadne Mcknight [facility] on 12/05/24 16:2 8 UA Protein 30 mg/dL Last Edit by Ariadne Mcknight [facility] on 12/05/24 16:28 UA pH 6.0 Last Edit by Ariadne Mcknight [facility] on 12/05/24 16:28 UA Blood 80 [place]/uL Last Edit by Ariadne Mcknight [facility] on 12/05/24 16:28 UA Specific [place] 1.025 Last Edit by Ariadne Mcknight [facility] on 12/05/24 16: 28 UA Ketone Negative Last Edit by Ariadne Mcknight [facility] on 12/05/24 16:28 UA Bilirubin 1 mg/dL Last Edit by Ariadne Mcknight [facility] on 12/05/24 16:28 UA Glucose 0 mg/dL Last Edit by Ariadne Mcknight [facility] on 12/05/24 16:28 Results Reviewed Results Reviewed: Laboratory Last Values Urine pH (Auto) 6.0 12/05/24 16:27 Specific [place] (Auto) 1.025 12/05/24 16:27 Urine Protein (Auto) 30 mg/dL 12/05/24 16:27 Glucose (UA)(Auto) 0 mg/dL 12/05/24 16:27 Urine Ketones (Auto) Negative 12/05/24 16:27 Urine Blood (Auto) 80 [place]/uL 12/05/24 16:27 Urine Nitrite (Auto) Negative 12/05/24 16:27 Urine Bilirubin (Auto) 1 mg/dL 12/05/24 16:27 Urine Urobilinogen (Auto) 0.2 mg/dL 12/05/24 16:27 Leukocyte Esterase (Auto) 70 [place]/uL 12/05/24 16:27 Date of Service: 10/16/24 Procedure(s): CT abdomen pelvis wo IV con Findings: Nonspecific linear densities of the lung bases. The unenhanced liver, gallbladder, spleen, adrenal glands, kidneys, ureters and bladder are unremarkable. Somewhat indistinct pancreas with questionable/minimal stranding. Uterus and adnexa are unremarkable. Well-positioned IUD. Moderate fecal retention throughout the colon. Normal appendix. No bowel obstruction. No acute osseous finding. Impression: No urinary calculus or obstructive uropathy. Questionable faint stranding about the pancreas, not definitive. Laboratory correlation for pancreatitis. Streaky bibasilar densities, nonspecific. Diffuse fecal retention. Assessment & Plan Assessment & Plan (1) Microhematuria: Code(s): R31.29 - Other microscopic hematuria Category: Medical (2) Overactive bladder: Code(s): N32.81 - Overactive bladder Category: Medical (3) Incomplete bladder emptying: Code(s): R33.9 - Retention of urine, unspecified Category: Medical (4) Lower urinary tract symptoms: Code(s): R39.9 - Unspecified symptoms and signs involving the genitourinary system Category: Medical (5) Recurrent UTI: Code(s): N39.0 - Urinary tract infection, site not specified Category: Medical Plan In office urinalysis results with the patient today; as noted above. PVR 0 mL. We discussed the importance of completing antibiotic therapy as prescribed by shearer printed circuit boards. We discussed potential causes of lower urinary tract symptoms patient is experiencing as well as recurrent urinary tract infections. We discussed the importance of regular bowel movements in relation to recurrent urinary tract infections as well as overall health and well-being. We did discussed further treatment options and risks and benefits of these treatment options. Will continue with surveillance monitoring at this time per patient request. Discussed UTI prevention with D mannose supplement, vitamin-C, increasing fluid intake, behavioral therapy with timed voiding, perineal hygiene and postcoital voiding, and management of constipation with stool softeners and increased fiber intake. We did discuss in office cystoscopy and or urodynamics for further assessment evaluation. Follow-up in 3 months with PVR; or sooner with any issues, concerns, and or questions. Orders: Orders Urine Cytology Today R31.29 - Other microscopic hematuria AMB Urinalysis Automated Today Z13.9 - Encounter for screening, unspecified Patient Instructions: The patient had an opportunity to ask questions regarding the treatment plan. All questions were answered. Physical exam, labs, and imaging were discussed and reviewed in detail. As well as risks, benefits, and discussion of treatment choices. No major barriers to understanding were identified. The patient expressed understanding and agreement with the above treatment plan. The patient was made aware they should contact our office by phone for worsening of their current condition, the appearance of new symptoms, or with any questions or concerns. Compliance is encouraged with any medications and follow up testing that is ordered. It is a privilege to be allowed the opportunity to participate in? your urological care.? Again, if you have any questions or concerns If you have any questions or concerns please do not hesitate to contact me. The office is [phone]. This note is constructed using voice recognition software. While every effort has been made to ensure accuracy product managent intern errors may have been included. Yours sincerely, CHARLIE Flores Coding Level of Care Code Est Pt Level 4 (80992) Diagnoses Microhematuria R31.29 Overactive bladder N32.81 Incomplete bladder emptying R33.9 Lower urinary tract symptoms R39.9 Recurrent UTI N39.0 CPT Codes Post Residual Void - PVR CPT Code: 34010-Iqbh Void Residual by ultrasound ([id number]) Time Spent (min) 40
== END 2024-12-05 16:59 | disposition home or self-care (01) ==
LOC: HO.HUSH 15:49
PROVIDERS: PCP Internal Medicine; Visit Provider Nurse Practitioner Family
DX: R31.29 Other microscopic hematuria (principal); N32.81 Overactive bladder; R33.9 Retention of urine, unspecified; R39.9 Unspecified symptoms and signs involving the genitourinary system; N39.0 Urinary tract infection, site not specified; Z13.9 Encounter for screening, unspecified
CPT/HCPCS: 99214

== ENCOUNTER 2024-12-05 15:49 | Outpatient (REF) | payer OTHER, SELFPAY | END 2024-12-05 15:50 | disposition home or self-care (01) | LOC: HO.LAB 15:49 | PROVIDERS: PCP Internal Medicine; Visit Provider Nurse Practitioner Family | DX: N32.81 Overactive bladder (principal); N39.0 Urinary tract infection, site not specified; R31.29 Other microscopic hematuria; N76.0 Acute vaginitis; Z13.89 Encounter for screening for other disorder; R39.9 Unspecified symptoms and signs involving the genitourinary system; R33.9 Retention of urine, unspecified; K59.00 Constipation, unspecified; Z79.899 Other long term (current) drug therapy | CPT/HCPCS: 51798; 81003; 88112; 99212 ==

== ENCOUNTER → 2025-02-06 10:06 | Outpatient (BNVA) | payer OTHER, SELFPAY | PROVIDERS: PCP Internal Medicine; Visit Provider Internal Medicine | DX: S50.02XA Contusion of left elbow, initial encounter (principal); S46.812A Strain of other muscles, fascia and tendons at shoulder and upper arm level, left arm, initial encounter; S46.912A Strain of unspecified muscle, fascia and tendon at shoulder and upper arm level, left arm, initial encounter; X50.1XXA Overexertion from prolonged static or awkward postures, initial encounter | CPT/HCPCS: 73080; 99203 ==

== ENCOUNTER → 2025-02-09 09:51 | Outpatient (BNVA) | payer OTHER, SELFPAY | PROVIDERS: PCP Internal Medicine; Visit Provider Physician Assistant Medical | DX: S50.02XA Contusion of left elbow, initial encounter (principal); W18.30XA Fall on same level, unspecified, initial encounter; S46.912A Strain of unspecified muscle, fascia and tendon at shoulder and upper arm level, left arm, initial encounter; Z02.79 Encounter for issue of other medical certificate | CPT/HCPCS: 99213 ==

== ENCOUNTER 2025-03-14 09:15 | Outpatient (REF) | payer OTHER, SELFPAY ==
[2025-03-14 14:15] LABS: MANUAL DIFF FLAG NO
[2025-03-14 14:19] LABS: Appearance Urine Cloudy; Glucose Urine UA Negative (Negative); PH 6.0 (5.0-9.0); Specific Gravity - Urine 1.020 (1.005-1.025); UMIC TRIGGER UACC YES
[2025-03-14 14:21] LABS: Hematocrit 36.6 % (37.0-47.0); Hemoglobin 12.2 g/dl (12.0-16.0); Imm Gran Abs Auto 0.01 X10*3/uL (0.00-0.03); Imm Gran Pct Auto 0.1 % (0.0-0.4); Lymphocytes Absolute Auto 1.3 X10*3/uL (1.2-4.9); Mean Corpuscular HGB Conc 33.3 g/dl (31.0-35.0); Mean Corpuscular Hemoglobin 30.7 pg (27.0-33.0); Mean Corpuscular Volume 92.2 fL (80.0-98.0); NRBC Abs Auto 0.000 X10*3/uL (0.0-0.012); NRBC Pct Auto 0.0 /100WBC (0.0-0.2); Platelet Count 203 X10*3/uL (160-400); Red Blood Count 3.97 X10*6/uL (4.20-5.50); White Blood Count 6.9 X10*3/uL (4.8-10.8)
[2025-03-14 14:26] LABS: UACC Culture Trigger YES
[2025-03-14 14:47] LABS: Alanine Aminotransferase 24 U/L (0-31); Albumin Level 4.4 g/dL (3.5-5.0); Alkaline Phosphatase 61 U/L (39-117); Aspartate Amino Transferase 22 U/L (5-31); Total Protein 6.9 g/dL (6.5-8.0)
[2025-03-14 14:56] LABS: Alanine Aminotransferase 22 U/L (0-31); Albumin Level 4.2 g/dL (3.5-5.0); Alkaline Phosphatase 61 U/L (39-117); Anion Gap 9 (12-20); Aspartate Amino Transferase 23 U/L (5-31); Blood Urea Nitrogen 17 mg/dL (9-16); Calcium 8.7 mg/dL (8.4-10.2); Carbon Dioxide 29 mmol/L (22-29); Chloride 108 mmol/L (96-108); Cholesterol 194 mg/dL (<200); Estimated Glomerular Filt Rate > 60; HDL Cholesterol 59 mg/dL (>40); Potassium 3.5 mmol/L (3.3-5.1); Sodium 142 mmol/L (135-145); Total Protein 6.9 g/dL (6.5-8.0); Triglycerides 81 mg/dL (<150)
[2025-03-14 15:17] LABS: Folate 3.2 ng/mL (> or = 4.0); Vitamin B12 304 pg/mL (200-900)
== END 2025-03-14 09:16 | disposition home or self-care (01) ==
LOC: HO.CHCLDS 09:15
PROVIDERS: PCP Internal Medicine; Referring Provider Dietitian, Registered; Visit Provider Internal Medicine
DX: Z00.00 Encounter for general adult medical examination without abnormal findings (principal); R31.29 Other microscopic hematuria; N32.81 Overactive bladder; N39.0 Urinary tract infection, site not specified; R32 Unspecified urinary incontinence; E78.00 Pure hypercholesterolemia, unspecified; M79.7 Fibromyalgia; E53.8 Deficiency of other specified B group vitamins; E55.9 Vitamin D deficiency, unspecified; D64.9 Anemia, unspecified; Z13.1 Encounter for screening for diabetes mellitus
CPT/HCPCS: 36415; 51798; 80053; 80061; 80076; 81001; 81003; 82248; 82306; 82607; 82746; 83036; 84443; 85025; 85652; 86140; 87086; 87088; 87186; 99212

== ENCOUNTER 2025-03-14 14:52 | Outpatient (AMB) | payer OTHER, SELFPAY ==
--- NOTE | 2025-03-14 15:06 | MHC.OFFVIS ---
Intake Visit Reasons: 3m/PVR Intake Note: Patient is present for 3M/PVR Urology Medication:MIRABEGRON Antibiotic Allergy:NONE Blood Thinner:NONE Last PVR:0ML'S Todays PVR:87ML'S Allergies cashew nut Allergy (Severe, Verified 03/14/25 21:45) ANAPHYLAXIS cat dander Allergy (Severe, Verified 03/14/25 21:45) ITCHY SWELLING pregabalin (From Lyrica) Allergy (Severe, Verified 03/14/25 21:45) headaches,lower facial/chin swelling gabapentin Allergy (Intermediate, Verified 03/14/25 21:45) confusion, nausea house dust Allergy (Intermediate, Verified 03/14/25 21:45) Unknown Medication List - Last Reconciled 03/14/25 by CHARLIE Flores xrrginendr-rgbvhkwttsqil-vlzz 50-325-40 mg 1 tab PO Q6H PRN cholecalciferol (vitamin D3) 50 mcg PO DAILY 90 days cyclobenzaprine 10 mg PO BEDTIME PRN epinephrine IM DIRECTED fluoxetine 20 mg PO DAILY hydroxyzine HCl 10 mg PO BID ibuprofen 800 mg PO TID metronidazole 500 mg PO BID 7 days mirabegron ER (Myrbetriq) 25 mg PO DAILY 90 days nitrofurantoin macrocrystal 100 mg PO BID 10 days ondansetron 4 mg PO Q6-8H PRN polyethylene glycol 3350 17 grams PO DAILY 30 days HPI Comments Details: Arminda is a pleasant 39-year-old female patient of Dr. Vargas. She has a past medical history of migraines, anxiety, depression, peripheral neuropathy, constipation, GERD, insomnia, fibromyalgia, constipation, and carpal tunnel syndrome. She presents to the office today for follow-up of her lower urinary tract symptoms. In discussion with the patient today She reports she had been feeling well up until approximately 2 weeks ago when she started experiencing foul-smelling urine and urinary frequency. in office urinalysis results reviewed with the patient today positive nitrates 2+ leukocytes. We did discussed given lower urinary tract symptoms and urinalysis today will treat for urinary tract infection. previous workup has included CT of the abdomen and pelvis without contrast 11/02 noting no urinary calculus or obstructive uropathy. Diffuse fecal retention. she does have baseline lower urinary tract symptoms of urinary urgency and frequency and has Previously trialed Myrbetriq however was not consistent with taking medications as prescribed. PVR today 87 mL. She does Also have a history of positive microgen results 10/31 and 04/02 and has since completed antibiotic therapy. She has had a history of incomplete bladder emptying and has been on terazosin however has since come off the medication. She also has a history of trialing oxybutynin and VESIcare for ongoing lower urinary tract symptoms however did not find these medications to be helpful. We did discuss near future in office cystoscopy and or urodynamics. She denies incontinence, nocturia, hematuria, dysuria, changes to urinary stream, flank pain, fever, and or chills. She otherwise offers no issues or concerns at this time. Urine Cytology: 02/01, 12/02 Negative for high-grade urothelial carcinoma [facility] Medical History Obesity (BMI 30-39.9) Carpal tunnel syndrome on both sides Pain in joint involving multiple sites Myalgia IUD (intrauterine device) in place Morbid obesity with BMI of 45.0-49.9, adult Urge incontinence Insomnia GERD without esophagitis Peripheral neuropathy Depression Anxiety Migraine Fibromyalgia Vitamin D deficiency Constipation Bilateral hand pain Surgical History H/O bilateral breast reduction surgery (~06/2012) History of section History of tubal ligation Family History Father No problems noted. Mother No problems noted. 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 needs: No Hearing needs: No Vision needs: Yes Female Reproductive History Menstrual Age of Menarche: 13 Review of Systems Const Reports as per HPI Eyes Reports no additional complaints ENT Reports no additional complaints Card Reports no additional complaints Resp Reports no additional complaints GI Reports as per HPI Reports as per HPI Musc Reports as per HPI Neuro Reports as per HPI Psych Reports as per HPI Endo Reports no additional complaints Jesus/Lymph Reports no additional complaints Aller/Immun Reports no additional complaints Physical Exam Const General: cooperative, healthy appearing, comfortable, no acute distress, well developed, alert and awake Orientation/consciousness: patient oriented x3 Limitations: no limitations HEENT Head: Yes normal to inspection, Yes normocephalic and Yes atraumatic Ears: hearing grossly normal bilaterally Eyes General: appearance normal, both eyes and all related structures Neck Neck: Yes normal visual inspection and Yes trachea midline Chest Chest palpation & inspection: normal inspection of the chest Resp Effort & Inspection: normal respiratory effort and able to speak in complete sentences Cardio Rate: regular rate GI Inspection: Yes normal to inspection General: Yes no CVA tenderness Back/Spine/Pelvis Back: no CVA tenderness Skin General skin exam: no rashes or lesions noted Neuro General: patient oriented x3 Extrem General: Yes normal to inspection Psych Appearance: grossly normal and well kempt Mental Status: mental status grossly normal Speech and movement: Normal speech and movement present and Clear speech present Affect: normal affect Attitude: cooperative Thought process: Normal thought process present Thought content: Normal thought content present Insight: Fair insight present (Psych) Judgement: Fair judgement present (Psych) Office Procedures Post Void Residual Post Residual Void Post Void Residual (PVR): 87 [id number]-[id number] Void Residual by ultrasound Results AMB Urinalysis, Automated UA Leukoctes 70 [place]/uL Last Edit by RADHA Farah on 03/14/25 15:33 UA Nitrite Positive Last Edit by RADHA Farah on 03/14/25 15:33 UA Urobilinogen 0.2 mg/dL Last Edit by RADHA Farah on 03/14/25 15:33 UA Protein 15 mg/dL Last Edit by RADHA Farah on 03/14/25 15:33 UA pH 6.0 Last Edit by RADHA Farah on 03/14/25 15:33 UA Blood 25 [place]/uL Last Edit by RADHA Farah on 03/14/25 15:33 UA Specific [place] 1.025 Last Edit by RADHA Farah on 03/14/25 15:33 UA Ketone Negative Last Edit by RADHA Farah on 03/14/25 15:33 UA Bilirubin 0 mg/dL Last Edit by RADHA Farah on 03/14/25 15:33 UA Glucose 0 mg/dL Last Edit by RADHA Farah on 03/14/25 15:33 Results Reviewed Results Reviewed: Laboratory Last Values Urine pH (Auto) 6.0 03/14/25 15:32 Specific [place] (Auto) 1.025 03/14/25 15:32 Urine Protein (Auto) 15 mg/dL 03/14/25 15:32 Glucose (UA)(Auto) 0 mg/dL 03/14/25 15:32 Urine Ketones (Auto) Negative 03/14/25 15:32 Urine Blood (Auto) 25 [place]/uL 03/14/25 15:32 Urine Nitrite (Auto) Positive 03/14/25 15:32 Urine Bilirubin (Auto) 0 mg/dL 03/14/25 15:32 Urine Urobilinogen (Auto) 0.2 mg/dL 03/14/25 15:32 Leukocyte Esterase (Auto) 70 [place]/uL 03/14/25 15:32 Assessment & Plan Assessment & Plan (1) Microhematuria: Code(s): R31.29 - Other microscopic hematuria Category: Medical (2) Foul smelling urine: Code(s): R82.90 - Unspecified abnormal findings in urine Category: Medical (3) Overactive bladder: Code(s): N32.81 - Overactive bladder Category: Medical (4) Lower urinary tract symptoms: Code(s): R39.9 - Unspecified symptoms and signs involving the genitourinary system Category: Medical (5) Recurrent UTI: Code(s): N39.0 - Urinary tract infection, site not specified Category: Medical (6) UTI (urinary tract infection): Code(s): N39.0 - Urinary tract infection, site not specified Category: Medical Plan In office urinalysis results reviewed with the patient today will send for urine cytology as well as urine culture. Start Macrobid as discussed and prescribed. PVR 87 mL. Previous urine cytology results reviewed with the patient today. We did discussed potential causes of urinary tract infections as well as further treatment options and risks and benefits of these treatment options. We did discussed in office cystoscopy and or urodynamics for further assessment evaluation; she would like to think about this. All questions were answered. Discussed UTI prevention with D mannose supplement, vitamin-C, increasing fluid intake, behavioral therapy with timed voiding, perineal hygiene and postcoital voiding, and management of constipation with stool softeners and increased fiber intake. Follow-up in 1-3 months with PVR; or sooner with any issues, concerns, and or questions. Orders: Orders Urine Culture Today N39.0 - Urinary tract infection, site not specified Urine Cytology Today R31.29 - Other microscopic hematuria AMB Urinalysis Automated Today Z13.9 - Encounter for screening, unspecified Medications: New nitrofurantoin macrocrystal 100 mg PO BID 20 caps 0RF 10 days R32 - Unspecified urinary incontinence Patient Instructions: The patient had an opportunity to ask questions regarding the treatment plan. All questions were answered. Physical exam, labs, and imaging were discussed and reviewed in detail. As well as risks, benefits, and discussion of treatment choices. No major barriers to understanding were identified. The patient expressed understanding and agreement with the above treatment plan. The patient was made aware they should contact our office by phone for worsening of their current condition, the appearance of new symptoms, or with any questions or concerns. Compliance is encouraged with any medications and follow up testing that is ordered. It is a privilege to be allowed the opportunity to participate in? your urological care.? Again, if you have any questions or concerns If you have any questions or concerns please do not hesitate to contact me. The office is [phone]. This note is constructed using voice recognition software. While every effort has been made to ensure accuracy geodetic survey director errors may have been included. Yours sincerely, WATSON Flores Coding Level of Care Code Est Pt Level 4 (63229) Complex EM visit Add On G2211 Diagnoses Microhematuria R31.29 Foul smelling urine R82.90 Overactive bladder N32.81 Lower urinary tract symptoms R39.9 Recurrent UTI N39.0 UTI (urinary tract infection) N39.0 CPT Codes Post Residual Void - PVR CPT Code: 58108-Bldu Void Residual by ultrasound ([id number])
== END 2025-03-14 15:59 | disposition home or self-care (01) ==
LOC: HO.HUSH 14:53
PROVIDERS: PCP Internal Medicine; Visit Provider Nurse Practitioner Family
DX: R31.29 Other microscopic hematuria (principal); R82.90 Unspecified abnormal findings in urine; N32.81 Overactive bladder; R39.9 Unspecified symptoms and signs involving the genitourinary system; N39.0 Urinary tract infection, site not specified; Z13.9 Encounter for screening, unspecified
CPT/HCPCS: 99214

== ENCOUNTER 2025-03-14 15:21 | Outpatient (REF) | payer OTHER, SELFPAY | END 2025-03-14 15:22 | disposition home or self-care (01) | LOC: HO.LAB 15:21 | PROVIDERS: Visit Provider Nurse Practitioner Family | DX: R31.29 Other microscopic hematuria (principal); N39.0 Urinary tract infection, site not specified | CPT/HCPCS: 87086; 87088; 87186; 88112 ==

== ENCOUNTER 2025-03-31 16:00 | Outpatient (AMB) | payer OTHER, SELFPAY ==
[2025-03-31 16:08] VITALS: BP 118/78; PULSE 68; O2SAT 99; BMI 35.5
--- NOTE | 2025-03-31 16:08 | A.OFFPC_ITS ---
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: No Accompanied by: Self / Same As Patient Allergies cashew nut Allergy (Severe, Verified 03/31/25 16:40) ANAPHYLAXIS cat dander Allergy (Severe, Verified 03/31/25 16:40) ITCHY SWELLING pregabalin (From Lyrica) Allergy (Severe, Verified 03/31/25 16:40) headaches,lower facial/chin swelling gabapentin Allergy (Intermediate, Verified 03/31/25 16:40) confusion, nausea house dust Allergy (Intermediate, Verified 03/31/25 16:40) Unknown Medication List - Last Reconciled 03/31/25 by Markell Vargas MD oldzmemprv-yqcycopjkqqmp-huhq 50-325-40 mg 1 tab PO Q6H PRN cholecalciferol (vitamin D3) 50 mcg PO DAILY 90 days cyclobenzaprine 10 mg PO BEDTIME PRN epinephrine IM DIRECTED fluoxetine 20 mg PO DAILY hydroxyzine HCl 10 mg PO BID ibuprofen 800 mg PO TID metronidazole 500 mg PO BID 7 days mirabegron ER (Myrbetriq) 25 mg PO DAILY 90 days nitrofurantoin macrocrystal 100 mg PO BID 10 days ondansetron 4 mg PO Q6-8H PRN polyethylene glycol 3350 17 grams PO DAILY 30 days Tobacco use date assessed: 03/31/25 Dental Screening Dental Screen Date: 03/31/25 Did you have a dental visit in the last 12 months?: Yes Did you have a dental problem in the last 6 months where you did not have access to dental care?: No Was dental information given to patient?: Patient has dentist HPI Annual exam HPI Details Patient comes in today for her annual physical examination States that she has been experiencing worsening widespread body pain, hand weakness, and severe, daily migraines for more than a month, describing it as affecting the entire body, including arms and legs There is associated hand weakness and difficulty with lifting and opening objects, which persists even after her carpal tunnel release surgery but patient denies numbness or tingling sensation in her hands Notes that her pain is often exacerbated after periods of rest, at times causing excruciating pain upon trying to stand up Patient has also been experiencing severe migraines daily for the last couple of weeks She recently saw a urologist and is currently on antibiotics for a urinary tract infection Patient also reports experiencing on and off episodes of dyspnea, chest heaviness, and prolonged coughing after running, particularly in cold air She denies a history of asthma and recalls using an inhaler during childhood but only when she is sick States that she has never smoked in the past Denies any headaches or dizziness Denies any chest pains and currently does not feel short of breath No nausea/vomiting, no abdominal pain No change in bowel habits noted She denies any acute urinary symptoms Patient's pap smear and yearly gynecology exam are up to date, and she will be due to start her annual mammogram next year The patient has an IUD and believes it is now due for replacement after having it on for five years now She had her follow up labs done a couple of weeks ago - to discuss her results [facility] Medical History Obesity (BMI 30-39.9) Carpal tunnel syndrome on both sides Pain in joint involving multiple sites Myalgia IUD (intrauterine device) in place Morbid obesity with BMI of 45.0-49.9, adult Urge incontinence Insomnia GERD without esophagitis Peripheral neuropathy Depression Anxiety Migraine Fibromyalgia Vitamin D deficiency Constipation Bilateral hand pain Surgical History H/O bilateral breast reduction surgery (~06/2012) History of section History of tubal ligation Family History Father No problems noted. Mother No problems noted. 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 1. Little interest or pleasure in doing things: several days 2. Feeling down, depressed, or hopeless: several days 3. Trouble falling or staying asleep, or sleeping too much: nearly every day 4. Feeling tired or having little energy: nearly every day 5. Poor appetite or overeating: nearly every day 6. Feeling bad about yourself - or that you are a failure or have let yourself or your family down: not at all 7. Trouble concentrating on things, such as reading the newspaper or watching television: not at all 8. Moving or speaking so slowly that other people could have noticed. Or the opposite - being so fidgety or restless that you have been moving around a lot more than usual: not at all 9. Thoughts that you would be better off or of hurting yourself in some way: not at all Total score: 11 Depression Screening Interpretation: Positive Depression Screening Follow-up: Existing condition and In treatment Depression Screening Done: Yes 93855 - PHQ-9 Billing: Yes Source: Developed by Drs. Celso Joshi, Mary Jo Jaramillo, Tu Powell and colleagues, with an educational brandon from [employer]. Thrive Questionnaire Date Thrive assessed: 03/31/25 I am a: Patient What is your living situation today?: I have a steady place to live Within the past 12 months, did the food you bought not last and you didn't have the money to get more?: Sometimes True Within the past 12 months, did you worry whether your food would run out before you got money to buy more?: Sometimes True Do you have trouble paying for medicines?: No Do you have trouble getting transportation to medical appointments?: No Do you have trouble paying your heating and electricity bill?: No Do you have trouble taking care of your child, family member or friend?: No Do you have trouble with day-to-day activities such as bathing, preparing meals, shopping, managing finances, etc.?: Yes Are you currently unemployed and looking for a job?: No Are you interested in more education?: No Please select the resources that you would like help with: None Currently or been in a relationship where the following occur: No concerns reported THRIVE Score: 2 AUDIT C Alcohol Use Questionnaire (AUDIT-C) 1. How often do you have a drink containing alcohol?: Monthly or less 2. How many drinks containing alcohol do you have on a typical day when you are drinking?: 1 or 2 3. How often do you have six or more drinks on one occasion?: Never Total Score: 1 Score Reviewed/Action Taken: Yes ABDIRIZAK-7 AMB Questionnaire ABDIRIZAK-7 Date ABDIRIZAK - 7 assessed: 03/31/25 Feeling nervous, anxious, or on edge: 2 = More than half the days Not being able to stop or control worryin = Not at all Worrying too much about different things: 0 = Not at all Trouble relaxin = More than half the days Being so restless that it is hard to sit still: 2 = More than half the days Becoming easily annoyed or irritable: 3 = Nearly every day Feeling afraid as if something awful might happen: 2 = More than half the days Total ABDIRIZAK-7 score (0-4 normal; 5-9 mild; 10-14 moderate; 15-21 severe): 11 Source: Developed by Drs. Celso Joshi, Mary Jo Jaramillo, Tu Powell and colleagues, with an educational brandon from [employer]. Review of Systems Const Reports body aches (diffuse), Denies chills, Reports fatigue, Denies fever(s) and Reports headache(s) (on and off - increased lately) Eyes Denies blurry vision, Denies change in vision, Denies irritation and Denies itchy eyes ENT Denies dysphagia, Denies dizziness, Denies otalgia, Reports headache(s) (on and off - increased lately), Denies nasal congestion, Reports neck pain, Denies odynophagia, Denies sinus pain and Denies sore throat Card Denies chest pain, Denies rapid heart rate, Denies irregular heart rhythm, Denies palpitations and Reports dyspnea on exertion (see HPI for details) Resp Denies chest congestion, Denies cough, Reports dyspnea on exertion (see HPI for details) and Denies wheezing GI Denies abdominal pain, Denies bloating, Denies constipation, Denies dysphagia, Denies heartburn, Denies diarrhea, Denies nausea, Denies odynophagia and Denies vomiting Denies hematuria, Denies difficulty voiding, Denies dysuria, Reports urinary incontinence (at times) and Denies urinary urgency Musc Reports back pain, Reports myalgias (diffuse), Reports arthralgias (involving multiple joints), Reports neck pain, Reports numbness (on and off in both hands) and Reports stiffness Skin/Breast Denies breast pain, Denies breast mass, Denies change in pigmentation, Denies lesions, Denies rash and Denies unusual bruising Neuro Denies dizziness, Reports headache(s) (on and off - increased lately), Reports numbness (on and off in both hands) and Denies paresthesias Psych Denies anxiety and Denies depression Endo Reports fatigue and Denies palpitations Jesus/Lymph Denies easy bruising Aller/Immun Denies itchy eyes and Denies wheezing Physical exam (Primary Care) Vital Signs: Last Vital Signs Pulse 68 03/31/25 16:08 BP 118/78 03/31/25 16:08 Pulse Ox 99 03/31/25 16:08 Oxygen Delivery Method Room Air 03/31/25 16:08 BMI result Body Mass Index 35.5 Tobacco/Smoking Status: Tobacco use Status Tobacco use date assessed 03/31/25 03/31/25 16:13 Patient Tobacco Use Status Never used Tobacco 03/31/25 16:13 e-Cigarette/Vaping Use Never Used 03/31/25 16:13 PHQ-9: PHQ-9 Score PHQ-9: Total score 11 04/01/25 15:24 Depression Screening Interpretation: Positive Depression Screening Follow-up: Existing condition and In treatment Thrive Assessment: Date of Thrive Assessment Date Thrive assessed 03/31/25 03/31/25 16:13 Currently or been in a relationship where the following occur: No concerns repo rted Const General: no acute distress and alert Orientation/consciousness: patient oriented x3 HENMT Head: Yes normocephalic and Yes atraumatic Ears: TM's normal bilaterally and EAC's normal General nose exam: No nasal discharge present Face and sinus: Yes normal facial exam and Yes sinuses nontender Teeth and gingiva: dentition normal Throat: Yes posterior oropharynx normal and Yes tonsils normal (no TP congestion) Eyes Eyelids: Yes eyelids normal Conjunctivae: conjunctivae normal Pupils: Equal, round and reactive pupils present EOM: EOMs intact bilaterally Neck Neck: Yes no lymphadenopathy and Yes supple Thyroid: Thyroid normal Resp Auscultation: clear to auscultation bilaterally, no rales and no wheezes Cardio Rate: regular rate Rhythm: regular rhythm Heart sounds: no murmurs GI Palpation (GI): Soft to palpation and nontender Auscultation: normal bowel sounds General: Yes no CVA tenderness Back/Spine/Pelvis Back: no CVA tenderness and back tenderness (diffuse) Thoracic/Lumbar Spine: paraspinal muscle tenderness bilaterally (over the cervical and thoracolumbar spine (diffuse)) and lumbar spinal tenderness Skin Lesions: no lesions Rashes: no rashes Neuro General: patient oriented x3, moves all extremities, no focal motor deficits and CN's II-XI intact bilaterally Cranial nerves: Yes Equal, round and reactive pupils present Cognition (Neuro): normal cognition Gait exam (Neuro): Normal gait present Extrem General: Yes no clubbing, cyanosis or edema Right upper extremity: shoulder/upper arm Details: tenderness (diffusely over the scapular area) Left upper extremity: shoulder/upper arm Details: tenderness (diffusely over the scapular areas) and wrist (increased tenderness over the volar aspect, opal at t he surgical site) Results Reviewed Results Reviewed: Laboratory Tests 03/14/25 03/14/25 09:22 09:28 WBC 6.9 Hgb 12.2 Hct 36.6 L Plt Count 203 D ESR 6 Sodium 142 Potassium 3.5 Creatinine 0.60 Estimated GFR > 60 Fasting Glucose 90 Hemoglobin A1c % 5.4 Calcium 8.7 AST 23 ALT 22 C-Reactive Protein < 0.04 Triglycerides 81 Cholesterol 194 LDL Cholesterol, Calc 119 H HDL Cholesterol 59 Vitamin B12 304 25-OH Vitamin D Total 26.2 L TSH 0.61 Ur Specific [place] 1.020 Urine Protein Negative Urine Glucose (UA) Negative Urine Blood Trace H Urine Nitrite Positive H Ur Leukocyte Esterase Moderate (2+) H Coding Level of Care Code Est Pt Prev Care 18-39y(35458) Diagnoses Annual physical exam Z00.00 Diffuse pain R52 Fibromyalgia M79.7 Chronic pain of left wrist M25.532; G89.29 Carpal tunnel syndrome on both sides G56.03 Exertional dyspnea R06.09 Vitamin D deficiency E55.9 Migraine without aura and without status migrainosus, not intractable G43.009 Migraine type: without aura Status migrainosus presence: without status migrainosus Intractability: not intractable Patellofemoral arthritis of left knee M17.12 Gastritis without bleeding, unspecified chronicity, unspecified gastritis type K29.70 Gastritis type: unspecified gastritis Chronicity: unspecified Gastritis bleeding: without bleeding Constipation, unspecified constipation type K59.00 Constipation type: unspecified constipation type Overactive bladder N32.81 Insomnia, unspecified type G47.00 Insomnia type: unspecified Anxiety F41.9 Moderate episode of recurrent major depressive disorder F33.1 Depression Type: major depressive disorder Major depression recurrence: recurrent Active/Remission status: currently active Major depression episode severity: moderate Obesity (BMI 30-39.9) E66.9 Additional Codes PHQ-9 - 23841 - PHQ-9 Billing: Yes ([id number]) Assessment & Plan Assessment & Plan (1) Annual physical exam: Code(s): Z00.00 - Encounter for general adult medical examination without abnormal findings Category: Medical Plan: Results of her labs done a couple of weeks ago reviewed and discussed with patient Patient's yearly gynecology exam and pap smear are up-to-date, and she will be due to start her annual mammogram next year The patient has an IUD and believes it is now due for replacement after having it on for five years now (2) Diffuse pain: Code(s): R52 - Pain, unspecified Category: Medical Plan: This is likely due to her fibromylagia as well as her arthralgias Advised patient that her inflammatory markers on her recent labs were all normal Will refer her back to rheumatology for further evaluation and management of her increasing diffuse myalgias and joint pains (3) Fibromyalgia: Code(s): M79.7 - Fibromyalgia Category: Medical Plan: She is encouraged again on regular exercise and physical activity to help manage her fibromyalgia symptoms She was tried on Tramadol 50 mg TID PRN, Tizanidine 4 mg TID PRN, Duloxetine 60 mg QD, Amitriptyline 50 mg QD and Savella in the past but patient stopped taking these after a while, either due to side effects or poor response to Tx She was advised by rheumatology a few years ago that she does not have any e vidence of inflammatory joint disease and that her symptoms are mostly likely due to OA, and CTS in her hands, and she should follow up with orthopedics for these issues (4) Chronic pain of left wrist: Code(s): M25.532 - Pain in left wrist; G89.29 - Other chronic pain Category: Medical Plan: S/P carpal tunnel release surgery last year on 05/05/2024 but patient states that she continues to experience increased pain with hypersensitivity over and around the surgical site on her wrist She claimed experiencing little relief with occupational therapy Of note, there was mention of evidence of a possible [place] Tammi anastomosis (considered a normal variant) seen on left on her most recent EMG/NCV done on 03/10/2024 - unknown at this time whether this has any significance or impact on her surgery outcome and current post-op symptoms (5) Carpal tunnel syndrome on both sides: Code(s): G56.03 - Carpal tunnel syndrome, bilateral upper limbs Category: Medical Plan: EMG and NCV on both upper extremities done back in 08/2009 revealed (+) mild CTS on the right upper extremity and mild to moderate CTS on the left side Repeat EMG and NCV done on the left upper extremity in 2022 showed (+) [id number] left median neuropathy across the carpal tunnel and mild left ulnar neuropathy across the cubital tunnel; the right side was not done as she was being evaluated for some work-related injury on her left arm/wrist back then Repeat studies done on 03/10/2024 revealed (+) electrodiagnostic evidence for left moderate-severe and right very mild/borderline median neuropathy at the wrist, consistent with carpal tunnel syndrome. Remnants of a chronic left ulnar neuropathy with only slight slowing of conduction velocity across the elbow are noted and there is no electrodiagnostic evidence for brachial plexopathy or cervical radiculopathy Patient was referred to orthopedics for further evaluation and management and consideration for CTS surgery and she ultimately underwent left wrist CTR on 05/05/2024 (6) Exertional dyspnea: Code(s): R06.09 - Other forms of dyspnea Category: Medical Plan: Patient denies any history of asthma but reports (+) dyspnea with exercise/exertion that is relieved with Albuterol HFA PRN WIll send her for PFTs for further evaluation (7) Vitamin D deficiency: Code(s): E55.9 - Vitamin D deficiency, unspecified Category: Medical Plan: Patient is advised that her vitamin-D level is still low on her recent labs but is improving Continue Vitamin D3 2000 units QD Will recheck her labs in 4 months for follow up (8) Migraine: Code(s): G43.909 - Migraine, unspecified, not intractable, without status migrainosus Category: Medical Qualifiers: Migraine type: without aura Status migrainosus presence: without status migrainosus Intractability: not intractable Qualified Code(s): G43.009 - Migraine without aura, not intractable, without status migrainosus Plan: Patient has failed prophylactic Tx with Amitriptyline, Propranolol and Topiramate in the past and has reportedly been advised by neurology a few years ago that her only available option left is Botox injection She has also failed to respond to symptomatic Tx with Naprosyn, Gabapentin, Lyrica and Aimovig, and Fioricet have also not helped Nurtec ODT PRN was prescribed for her recently but this was denied by her insurance She is now (back on) Emgality 120 mg SQ once a month and her migraine headaches appear to be well-controlled on her current Rx Continue Sumatriptan 50 mg PRN for symptomatic relief of acute headaches Follow up with neurology as scheduled (9) Patellofemoral arthritis of left knee: Code(s): M17.12 - Unilateral primary osteoarthritis, left knee Category: Medical Plan: Continue Ibuprofen 600 mg Q 6 hours PRN with food She has been referred to physical therapy for her knee in the past with some relief Follow up with orthopedics as scheduled or as needed (10) Gastritis: Code(s): K29.70 - Gastritis, unspecified, without bleeding Category: Medical Qualifiers: Gastritis type: unspecified gastritis Chronicity: unspecified Gastritis bleeding: without bleeding Qualified Code(s): K29.70 - Gastritis, unspecified, without bleeding Plan: Dietary restrictions reinforced Continue Omeprazole 20 mg QD PRN (11) Constipation: Code(s): K59.00 - Constipation, unspecified Category: Medical Qualifiers: Constipation type: unspecified constipation type Qualified Code(s): K59.00 - Constipation, unspecified Plan: She is encouraged again on increased oral fluids and dietary fiber Continue Miralax 17 gm QD (12) Overactive bladder: Code(s): N32.81 - Overactive bladder Category: Medical Plan: Continue Myrbetriq 25 mg QD Follow up with urology as scheduled (13) Insomnia: Code(s): G47.00 - Insomnia, unspecified Category: Medical Qualifiers: Insomnia type: unspecified Qualified Code(s): G47.00 - Insomnia, unspecified Plan: Sleep hygiene reinforced (14) Anxiety: Code(s): F41.9 - Anxiety disorder, unspecified Category: Medical Plan: Continue Hydroxyzine 10 mg BID PRN (15) Depression: Code(s): F32.9 - Major depressive disorder, single episode, unspecified Category: Medical Qualifiers: Depression Type: major depressive disorder Major depression recurrence: recurrent Active/Remission status: currently active Major depression episode severity: moderate Qualified Code(s): F33.1 - Major depressive disorder, recurrent, moderate Plan: Continue Fluoxetine 20 mg QD Follow up with psychiatry as scheduled (16) Obesity (BMI 30-39.9): Code(s): E66.9 - Obesity, unspecified Category: Medical Plan: Reinforced diet/exercise as tolerated/lose weight Plan Follow up in 4 months Orders: Orders Comprehensive [place]. Panel Fast 4 Months E78.00 - Pure hypercholesterolemia, unspecified Lipid Panel 4 Months E78.00 - Pure hypercholesterolemia, unspecified PFT pulmonary function test 03/31/25 R06.09 - Other forms of dyspnea Complete Blood Count Auto Diff 4 Months D64.9 - Anemia, unspecified Referrals Rheumatology Referral R52 - Pain, unspecified
== END 2025-03-31 16:57 | disposition home or self-care (01) ==
LOC: HO.HMCH 16:01
PROVIDERS: PCP Internal Medicine; Visit Provider Internal Medicine
DX: Z00.00 Encounter for general adult medical examination without abnormal findings (principal); R52 Pain, unspecified; M79.7 Fibromyalgia; M25.532 Pain in left wrist; G89.29 Other chronic pain; G56.03 Carpal tunnel syndrome, bilateral upper limbs; R06.09 Other forms of dyspnea; E55.9 Vitamin D deficiency, unspecified; G43.009 Migraine without aura, not intractable, without status migrainosus; E66.9 Obesity, unspecified; Z68.35 Body mass index [BMI] 35.0-35.9, adult; F33.1 Major depressive disorder, recurrent, moderate; M17.12 Unilateral primary osteoarthritis, left knee; K29.70 Gastritis, unspecified, without bleeding; K59.00 Constipation, unspecified; N32.81 Overactive bladder; G47.00 Insomnia, unspecified; F41.9 Anxiety disorder, unspecified

== ENCOUNTER → 2025-03-31 16:00 | Outpatient (BNVA) | payer OTHER, SELFPAY | PROVIDERS: PCP Internal Medicine; Visit Provider Internal Medicine | DX: Z00.00 Encounter for general adult medical examination without abnormal findings (principal); R53.1 Weakness; G43.909 Migraine, unspecified, not intractable, without status migrainosus; M79.7 Fibromyalgia; M25.532 Pain in left wrist; G89.29 Other chronic pain; G56.03 Carpal tunnel syndrome, bilateral upper limbs; R06.09 Other forms of dyspnea; E55.9 Vitamin D deficiency, unspecified; G43.009 Migraine without aura, not intractable, without status migrainosus; M17.12 Unilateral primary osteoarthritis, left knee; K29.70 Gastritis, unspecified, without bleeding; K59.00 Constipation, unspecified; N32.81 Overactive bladder; G47.00 Insomnia, unspecified; F41.9 Anxiety disorder, unspecified; F33.1 Major depressive disorder, recurrent, moderate; E66.9 Obesity, unspecified; Z68.35 Body mass index [BMI] 35.0-35.9, adult | CPT/HCPCS: 96127; 99395 ==